=== PATIENT | male | born 1950 | race Two or more races ===

== ENCOUNTER 2025-03-08 16:00 | Inpatient (IN) | payer MEDICARE ==
[~2025-03-08] VITALS: Ht 180.3 cm; Wt 101.1 kg
[2025-03-08] MEDS: InsuLIN REG 1unit/0.01ml Soln (100units/ml) SC SCH (02:30)
[2025-03-08] MEDS: ACCU-CHEK COMFORT CURVE STRIP VI SCH (02:30)
--- NOTE | 2025-03-08 16:26 | ED.PDOC ---
SOB-HPI HPI Comments mulu: HPI: Poor Historian. 74-year-old male brought in by ambulance from post acute care facility for shortness of breath and worsening generalized weakness. Patient is oxygen dependent at home however EMS states that the patient was not wearing his supplemental oxygen because it fell off. Patient uses 4 L nasal cannula for COPD. Patient was used to admitted and discharged from the hospital. Past Medical History: Hypertension, diabetes, on Coumadin, atrial fibrillation, nonambulatory, sleep apnea, ischemic heart disease, polyneuropathy, chronic pain syndrome, hypomagnesemia, COPD oxygen dependent 4 L at home. Past Surgical History: Bariatric surgery, abdominal surgery for perforated viscus, REVIEW OF SYSTEMS: CONSTITUTIONAL: Denies acute: fever, diaphoresis, chills, HEAD: Denies acute: headache, photophobia Eyes: Denies acute: Double vision, vision loss, eye pain, eye discharge. EARS: Denies acute: tinnitus, hearing loss, ear discharge, ear pain, THROAT: Denies acute: sore throat, swelling, difficulty swallowing , pain with swallowing, change in voice. NECK: Denies acute: neck pain, neck swelling, stiff neck. HEART: Denies acute : chest pain, palpitations, LUNGS: Denies acute: wheezing, cough, hemoptysis ABDOMEN: Denies acute: abdominal pain, Nausea, Vomiting, diarrhea, melena , hematemesis, hematochezia SKIN: Denies acute: rash, redness, lesions, itchiness. EXTREMITIES: Denies acute: calf pain, numbness, tingling, weakness, denies pain in extremity. Denies acute: Low back pain. Neuro: Denies acute: focal neurological deficit, motor or sensory focal neurological deficit, tremors, seizure like activity, confusion, dizziness, change in mental status, loss of bowel or bladder function, cauda equina like symptoms. : Denies acute: dysuria, hematuria, flank pain, increase in urinary frequency. PSYCH: Denies acute: hallucination, suicidal ideation, homicidal ideation. PHYSICAL EXAM: General: ---jgqh-jm-[id number]----acute distress, awake and alert. Head: normocephalic, atraumatic. Neck: supple, trachea is midline, no swelling. Throat: Normal phonation. Eyes:, no erythema, no purulent discharge, no proptosis, no icterus. Heart: regular rate, regular rhythm, no significant murmur appreciated. Lungs: no apparent respiratory distress, Able to speak in full sentences. No wheezing, no rhonchi, no crackles. No stridors Clear to auscultation bilaterally. Abdomen: non tender to palpation, non distended, soft, no guarding, no rebound, + bowel sounds. Morbidly obese. Neuro: Awake, Alert, oriented to name, self, situation, follows commands GCS=15. Speech is normal. Skin: no petechia, no purpura, no cyanosis, slightly-pale, not jaundice. Lower extremities: --one/for bilateral- Pitting edema no deformity, no focal swelling, no calf TTP. Makes eye contact. moves all four extremities. Face: no apparent facial droop. ED COURSE: DISCLAIMER: This medical document was created using an electronic medical record system with voice recognition software and computerized dictation system. Although this document has been carefully reviewed, there might still be some phonetic and typographical errors. Occasional wrong-word or "sound-alike" substitutions may have occurred due to the inherent limitations of voice recognition software. These areas are purely typographical due to imperfections of the software programs and do not reflect any compromise in the patient's medical care. Please read the chart carefully and recognize, using context, where these substitutions have occurred. Chief Complaint: Shortness of Breath Time Seen by MD: 16:02 Reviewed notes: Allergies Information Source: Patient, Emergency Med Personnel Was a procedure done? Was a procedure done?: No Differential Dx Differential Diagnosis: Other (DDx include ACS, unstable angina, anxiety, PE, pneumothroax, neoplasm, cardiac ischemia, COPD, asthma, CHF, pleural effusion, tobacco abuse, pneumonia, hypoxia, hypercapnia, anemia., infection/sepsis., pulmonary edema. Asthma, Cardiac tamponade, infection.) X-Ray, Labs, Meds, VS Vital Signs Date Time Temp Pulse Resp B/P (MAP) Pulse Ox O2 Delivery O2 Flow Rate FiO2 03/08/25 16:47 20 97 Nasal Cannula* 3 32 03/08/25 16:35 97.8 83 20 117/70 (86) 98 97.8 03/08/25 16:35 Nasal Cannula* 4 36 03/08/25 16:20 18 95 Nasal Cannula* 4 36 03/08/25 16:20 97.8 88 18 128/80 (96) 95 97.8 03/08/25 16:05 87 Lab Test 03/08/25 17:48 03/08/25 17:02 03/08/25 16:18 Range/Units Prothrombin Time 10.9 9.3-11.8 sec Prothrombin Time INR 1.03 0.9-1.15 Activated Partial Thromboplast Time 30.1 24.5-34.5 SEC Troponin I High Sensitivity 8 11 </=54 ng/L White Blood Count 9.8 4.4-10.8 10^3/uL Red Blood Count 5.13 4.5-5.90 10^6/uL Hemoglobin 11.3 L 13.5-17.5 g/dL Hematocrit 37.5 L 41.0-53.0 % Mean Corpuscular Volume 73.0 L 80.0-100.0 fL Mean Corpuscular Hemoglobin 22.1 L 28.0-32.0 pg Mean Corpuscular Hemoglobin Concent 30.2 L 32.0-36.0 g/dL Red Cell Distribution Width 20.2 H 11.8-14.3 % Platelet Count 504 H 140-450 10^3/uL Mean Platelet Volume 6.1 L 6.9-10.8 fL Neutrophils (%) (Auto) 69.1 37.0-80.0 % Lymphocytes (%) (Auto) 15.9 10.0-50.0 % Monocytes (%) (Auto) 13.2 H 0.0-12.0 % Eosinophils (%) (Auto) 0.8 0.0-7.0 % Basophils (%) (Auto) 1.0 0.0-2.0 % Neutrophils # (Auto) 6.8 1.6-8.6 10 ^3/uL Lymphocytes # (Auto) 1.6 0.4-5.4 10 ^3/uL Monocytes # (Auto) 1.3 0-1.3 10 ^3/uL Eosinophils # (Auto) 0.1 0-0.8 10 ^3/uL Basophils # (Auto) 0.1 0-0.2 10 ^3/uL Nucleated Red Blood Cells 0.1 % Sodium Level 137 136-145 mmol/L Potassium Level 3.0 L 3.5-5.1 mmol/L Chloride Level 99 98-107 mmol/L Carbon Dioxide Level 29 20-31 mmol/L Anion Gap 9 5-15 Blood Urea Nitrogen 22 9-23 mg/dL Creatinine 0.86 0.700-1.30 mg/dL Glomerular Filtration Rate Calc 90 >90 mL/min BUN/Creatinine Ratio 25.6 H 10.0-20.0 Serum Glucose 140 H 74-106 mg/dL Lactic Acid Level 1.3 0.4-2.0 mmol/L Calcium Level 9.7 8.7-10.4 mg/dL Magnesium Level 2.0 1.6-2.6 mg/dL Total Bilirubin < 0.2 L 0.2-1.0 mg/dL Aspartate Amino Transferase (AST) 25 13-40 U/L Alanine Aminotransferase (ALT) 25 7-40 U/L Alkaline Phosphatase 81 46-116 U/L B-Type Natriuretic Peptide 55.64 0-100 pg/mL Total Protein 8.4 H 5.7-8.2 g/dL Albumin 4.2 3.2-4.8 g/dL POC Glucose 143 H 70-106 mg/dl Current Medications Medications (Trade) Dose Ordered Sig/Manoj Route Start Time Stop Time Status Last Admin Albuterol (Ventolin Medneb) 2.5 mg ONCE ONCE NEB 03/08/25 16:30 03/08/25 16:47 DC 03/08/25 16:47 Ipratropium [place] (Atrovent Medneb) 1 mg ONCE ONCE NEB 03/08/25 16:30 03/08/25 16:47 DC 03/08/25 16:47 Methylprednisolone Sodium Succinate (Solu Medrol) 125 mg ONCE ONCE IV 03/08/25 16:30 03/08/25 16:47 DC 03/08/25 17:05 Furosemide (Lasix Injection) 20 mg ONCE ONCE IV 03/08/25 18:30 03/08/25 19:04 DC 03/08/25 19:[address] [address] Ph: [phone] DIAGNOSTIC IMAGING Diagnostic Imaging Report : [id number] Signed PATIENT: MULU MARRERO LACCT: [id number] UNIT: [id number] : 1950 LOC: ER ROOM / BED: / AGE / SEX: 74 / M ADM STATUS: REG ER SERVICE 1608 ORDERING PHYSICIAN: AMELIA ROJO DO PROCEDURE(s): ABPL - CT AB PEL WO CON-NO ORAL OR IV REASON: sob, weak ORDER NUMBER(s): [id number], ACCESSION NUMBER(s): [id number] Indication: sob, weak Technique: CT axial images of the abdomen and pelvis are obtained without contrast. Coronal and sagittal reformats were obtained. Radiation Dose Information: CTDI volume is 24.64 mGy. Dose-length product is 1527.75 mGy*cm Comparison: None FINDINGS: There is limited interpretation of the abdomen and pelvis without administration of intravenous contrast. Small left and tiny right pleural effusions. Bilateral pulmonary atelectasis. Developing left lower lobe airspace consolidation. Pulmonary ground-glass opacities. Adrenal glands unremarkable. Splenic subcapsular / perisplenic fluid collection measuring 7.2 x 3.5 by 11.0 cm. Pancreas, liver unremarkable in shape. Cholecystectomy. Left renal cysts measuring 10 cm.n no hydronephrosis/ nephrolithiasis 1 cm right renal cyst. Postsurgical changes stomach/gastrojejunostomy. Small bowel loops normal in caliber. Moderate volume stool in the colon. Distention of the rectosigmoid colon 9.7 cm. Abdominal aortic atherosclerotic disease. Bladder partially distended. No free pelvic fluid. No inguinal lymphadenopathy. [id number] bilateral sacroiliac degenerative joint disease. Moderate to advanced thoracolumbar degenerative disc disease and facet hypertrophic changes. Sclerotic changes bilateral femoral heads. Right upper extremity PICC line, incompletely characterized. This appears to terminate near the cavoatrial junction. IMPRESSION: Splenic subscapular /perisplenic fluid collection that is encapsulated measuring 7.2 x 11.0 cm. Infected collection/ abscess remains within differential. Recommend CT abdomen pelvis with contrast and surgical consultation for further evaluation, management. Moderate to large volume stool within the colon. Marked gaseous distention of the rectosigmoid colon which could be secondary to ileus, pseudo-obstruction. Recommend GI/ surgical consultation for further evaluation. Cholecystectomy. Gastrojejunostomy. Bibasilar pulmonary atelectasis and developing left lower lobe consolidation. Small left and tiny right pleural effusions. 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 Other findings as described ATED BY: SHASHANK MAURER MD DICTATED DATE/TIME: 03/08/251818 SIGNED BY: SHASHANK MAURER MD SIGNED DATE/TIME: 03/08/251818 CC: [place] [id number] Ph: [phone] DIAGNOSTIC IMAGING Diagnostic Imaging Report : [id number] Signed PATIENT: MULU MARRERO LACCT: [id number] UNIT: [id number] : 1950 LOC: ER ROOM / BED: / AGE / SEX: 74 / M ADM STATUS: REG ER SERVICE 1608 ORDERING PHYSICIAN: AMELIA ROJO DO PROCEDURE(s): CXRP - CHEST PORTABLE REASON: sob, weak ORDER NUMBER(s): [id number], ACCESSION NUMBER(s): [id number] EXAM: XY CHEST PORTABLE TECHNIQUE: Single frontal chest radiograph CLINICAL HISTORY: sob, weak COMPARISON: None Findings/Impression: Frontal chest radiograph demonstrates no acute osseous or superficial soft tissue abnormalities. Right upper extremity PICC terminates near the superior cavoatrial junction. The trachea is midline. The cardiac silhouette and mediastinum are within normal limits. Low lung volumes bronchovascular crowding and bibasilar atelectasis. No pneumothorax, pleural effusions, or consolidations. ATED BY: NAE TORRES DO DICTATED DATE/TIME: 03/08/251833 SIGNED BY: NAE TORRES DO SIGNED DATE/TIME: 03/08/251833 CC: Time of 1ST Reevaluation: 16:25 (EKGs shows some concerning findings, cardiology was consulted immediately. They came and evaluated the patient in the ED Dr. Zhou. Please see his consultation notes and recommendations.) Reevaluation 1ST: Unchanged Patient Education/Counseling: Diagnosis, Treatment Family Education/Counseling: No Family Present Comments Patient presented with the above HPI.---dyspnea-generalized with--workup was initiated. patient was found with the above mentioned diagnosis. the following medications were ordered: please refer to order lists of meds and tests obtained by myself Dr. Rojo. Patient ED course and VS have been stabilized. Patient has been reassessed in the ED and remained in a stable condition. Pertinent incidental findings were discussed with the patient and/or family. Patient/family voices understanding and is agreeable with plan. Patient has been observed in the ED adequate length of time to insure improvement/stability. Escalation of care considered: Consideration of escalation to observation or admission Radiology was consult. General surgery was consulted Patient was ADMITTED to the medicine team for further evaluation and treatment o f their presentation. All the reports of any imaging studies that were ordered by myself were reviewed by myself. SEPSIS Sepsis Screen Physician Orders [employer] (03/08/25 ) Urinalysis (03/08/25 16:08) Chest Portable (03/08/25 16:08) Electrocardigram (03/08/25 16:08) Ct Ab Pel Wo Con-No Oral Or Iv (03/08/25 16:08) Troponin-I Hs (03/08/25 19:08) * Cardiology Consult (03/08/25 16:22) Vital Signs Date Time Temp Pulse Resp B/P (MAP) Pulse Ox O2 Delivery O2 Flow Rate FiO2 03/08/25 16:47 20 97 Nasal Cannula* 3 32 03/08/25 16:35 97.8 83 20 117/70 (86) 98 97.8 03/08/25 16:35 Nasal Cannula* 4 36 03/08/25 16:20 18 95 Nasal Cannula* 4 36 03/08/25 16:20 97.8 88 18 128/80 (96) 95 97.8 03/08/25 16:05 87 Laboratory Tests Test 03/08/25 17:02 Lactic Acid Level 1.3 mmol/L (0.4-2.0) White Blood Count 9.8 10^3/uL (4.4-10.8) Medications Medications Dose Ordered Sig/Manoj Route Start Time Stop Time Status Last Admin Dose Admin Albuterol 2.5 mg ONCE ONCE NEB 03/08/25 16:30 03/08/25 16:47 DC 03/08/25 16:47 Furosemide 20 mg ONCE ONCE IV 03/08/25 18:30 03/08/25 19:04 DC 03/08/25 19:33 Ipratropium [place] 1 mg ONCE ONCE NEB 03/08/25 16:30 03/08/25 16:47 DC 03/08/25 16:47 Methylprednisolone Sodium Succinate 125 mg ONCE ONCE IV 03/08/25 16:30 03/08/25 16:47 DC 03/08/25 17:05 Departure 1 Departure Time of Disposition: 16:26 Impression: Primary Impression: Generalized weakness Additional Impressions: Dyspnea Abnormal EKG Hypokalemia SBO (small bowel obstruction) Lung consolidation Disposition: ADMITTED INPATIENT Admit to: Tele Condition: Guarded Discharged With: Self Critical Care Note Critical Care Time?: Yes (1 hr-critical care time only) Heart Score Heart Score: Heart Score Response (Comments) Value History Moderate Suspicious [address]-Deviation 2 Age >65 2 Risk Factors >3 or Hx ASHD 2 Troponin Normal limit 0 Total 7 AMELIA ROJO DO Mar 08, 2025 16:26
[2025-03-08] MEDS: IPRATROPIUM BROM 0.5 MG/2.5ML INH SOL ONE (16:47)
[2025-03-08] MEDS: IPRATROPIUM BROM 0.5 MG/2.5ML INH SOL NEB ONE (16:47)
[2025-03-08] MEDS: ALBUTEROL SULF 2.5 MG/0.5ML(0.5%) NEB SOLN NEB ONE (16:47)
[2025-03-08] MEDS: methylPREDNISolone SOD SUCC 125 MG/2 ML VL IV ONE (17:05)
[2025-03-08 17:23] LABS: Hematocrit 37.5 % (41.0-53.0); Hemoglobin 11.3 g/dL (13.5-17.5); Mean Corpuscular Hemoglobin 22.1 pg (28.0-32.0); Mean Corpuscular Volume 73.0 fL (80.0-100.0); Nucleated Red Blood Cells % 0.1 %
[2025-03-08 17:37] LABS: Alanine Aminotransferase 25 U/L (7-40); Albumin 4.2 g/dL (3.2-4.8); Alkaline Phosphatase 81 U/L (46-116); Anion Gap 9 (5-15); BUN/Creatinine Ratio 25.6 (10.0-20.0); Blood Urea Nitrogen 22 mg/dL (9-23); Calcium 9.7 mg/dL (8.7-10.4); Carbon Dioxide 29 mmol/L (20-31); Chloride 99 mmol/L (98-107); Magnesium 2.0 mg/dL (1.6-2.6); Sodium 137 mmol/L (136-145)
[2025-03-08 17:39] LABS: Bilirubin, Total < 0.2 mg/dL (0.2-1.0); Glucose 140 mg/dL (74-106); Potassium 3.0 mmol/L (3.5-5.1); Total Protein 8.4 g/dL (5.7-8.2)
--- NOTE | 2025-03-08 18:21 | DVH ---
Indication: sob, weak Technique: CT axial images of the abdomen and pelvis are obtained without contrast. Coronal and sagit giovanni reformats were obtained. Radiation Dose Information: CTDI volume is 24.64 mGy. Dose-length product is 1527.75 mGy*cm Comparison: None FINDINGS: There is limited interpretation of the abdomen and pelvis without administration of intravenous contr ast. Small left and tiny right pleural effusions. Bilateral pulmonary atelectasis. Developing left lower lobe airspace consolidation. Pulmonary ground- glass opacities. Adrenal glands unremarkable. Splenic subcapsular / perisplenic fluid collection measuring 7.2 x 3.5 by 11.0 cm. Pancreas, liver unremarkable in shape. Cholecystectomy. Left renal cysts measuring 10 cm.n no hydronephrosis/ nephrolithiasis 1 cm right renal cyst. Postsurgical changes stomach/gastrojejunostomy. Small bowel loops normal in caliber. Moderate volume stool in the colon. Distention of the rectosigmoid colon 9.7 cm. Abdominal aortic atherosclerotic disease. Bladder partially distended. No free pelvic fluid. No ingui nal lymphadenopathy. Hmte-zf-[id number] bilateral sacroiliac degenerative joint disease. Moderate to advanced thoracolumbar degenerative disc disease and facet hypertrophic changes. Sclerotic changes bilateral femoral heads. Right upper extremity PICC line, incompletely characterized. This appears to terminate near the cavoa trial junction. IMPRESSION: Splenic subscapular /perisplenic fluid collection that is encapsulated measuring 7.2 x 11.0 cm. Infec jennifer collection/ abscess remains within differential. Recommend CT abdomen pelvis with contrast and s urgical consultation for further evaluation, management. Moderate to large volume stool within the colon. Marked gaseous distention of the rectosigmoid colon which could be secondary to ileus, pseudo-obstruc tion. Recommend GI/ surgical consultation for further evaluation. Cholecystectomy. Gastrojejunostomy. Bibasilar pulmonary atelectasis and developing left lower lobe consolidation. Small left and tiny rig ht pleural effusions. Pulmonary ground-glass opacities which can be secondary to infection, hypoventilation, inflammatory e tiologies Bilateral femoral head sclerotic changes likely representing sequela of avascular necrosis. Other findings as described
--- NOTE | 2025-03-08 18:36 | DVH ---
EXAM: XY CHEST PORTABLE TECHNIQUE: Single frontal chest radiograph CLINICAL HISTORY: sob, weak COMPARISON: None Findings/Impression: Frontal chest radiograph demonstrates no acute osseous or superficial soft tissue abnormalities. Right upper extremity PICC terminates near the superior cavoatrial junction. The trachea is midline. The cardiac silhouette and mediastinum are within normal limits. Low lung volumes bronchovascular crowding and bibasilar atelectasis. No pneumothorax, pleural effusions, or consolidations.
[2025-03-08 18:39] LABS: INR 1.03 (0.9-1.15); Partial Thromboplastin Time 30.1 SEC (24.5-34.5); Prothrombin Time 10.9 sec (9.3-11.8)
--- NOTE | 2025-03-08 19:15 | DVHINCON2 ---
Date of service: Mar 08, 2025 History of Present Illness 74 yo M with recent surgery admitted for weakness. iw as called 'STAT" by ER MD for abnormal ecg. i called off code stemi. trops are - IMPRESSION: Splenic subscapular /perisplenic fluid collection that is encapsulated measuring 7.2 x 11.0 cm. Infected collection/ abscess remains within differential. Recommend CT abdomen pelvis with contrast and surgical consultation for further evaluation, management. Moderate to large volume stool within the colon. Marked gaseous distention of the rectosigmoid colon which could be secondary to ileus, pseudo-obstruction. Recommend GI/ surgical consultation for further evaluation. Cholecystectomy. Gastrojejunostomy. Bibasilar pulmonary atelectasis and developing left lower lobe consolidation. Small left and tiny right pleural effusions. 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 Other findings as described Past Medical History reviewed Allergies: Coded Allergies: Statins (Verified Allergy, Severe, 03/08/25) Review of Systems not obtained Vital Signs Vital Signs Date Time Temp Pulse Resp B/P (MAP) Pulse Ox O2 Delivery O2 Flow Rate FiO2 03/08/25 16:47 20 97 Nasal Cannula* 3 32 03/08/25 16:35 97.8 83 117/70 (86) 97.8 Labs/Diagnostic Data Labs Test 03/08/25 17:48 03/08/25 17:02 03/08/25 16:18 Range/Units Prothrombin Time 10.9 9.3-11.8 sec Prothrombin Time INR 1.03 0.9-1.15 Activated Partial Thromboplast Time 30.1 24.5-34.5 SEC Troponin I High Sensitivity 8 </=54 ng/L White Blood Count 9.8 4.4-10.8 10^3/uL Red Blood Count 5.13 4.5-5.90 10^6/uL Hemoglobin 11.3 L 13.5-17.5 g/dL Hematocrit 37.5 L 41.0-53.0 % Mean Corpuscular Volume 73.0 L 80.0-100.0 fL Mean Corpuscular Hemoglobin 22.1 L 28.0-32.0 pg Mean Corpuscular Hemoglobin Concent 30.2 L 32.0-36.0 g/dL Red Cell Distribution Width 20.2 H 11.8-14.3 % Platelet Count 504 H 140-450 10^3/uL Mean Platelet Volume 6.1 L 6.9-10.8 fL Neutrophils (%) (Auto) 69.1 37.0-80.0 % Lymphocytes (%) (Auto) 15.9 10.0-50.0 % Monocytes (%) (Auto) 13.2 H 0.0-12.0 % Eosinophils (%) (Auto) 0.8 0.0-7.0 % Basophils (%) (Auto) 1.0 0.0-2.0 % Neutrophils # (Auto) 6.8 1.6-8.6 10 ^3/uL Lymphocytes # (Auto) 1.6 0.4-5.4 10 ^3/uL Monocytes # (Auto) 1.3 0-1.3 10 ^3/uL Eosinophils # (Auto) 0.1 0-0.8 10 ^3/uL Basophils # (Auto) 0.1 0-0.2 10 ^3/uL Nucleated Red Blood Cells 0.1 % Sodium Level 137 136-145 mmol/L Potassium Level 3.0 L 3.5-5.1 mmol/L Chloride Level 99 98-107 mmol/L Carbon Dioxide Level 29 20-31 mmol/L Anion Gap 9 5-15 Blood Urea Nitrogen 22 9-23 mg/dL Creatinine 0.86 0.700-1.30 mg/dL Glomerular Filtration Rate Calc 90 >90 mL/min BUN/Creatinine Ratio 25.6 H 10.0-20.0 Serum Glucose 140 H 74-106 mg/dL Lactic Acid Level 1.3 0.4-2.0 mmol/L Calcium Level 9.7 8.7-10.4 mg/dL Magnesium Level 2.0 1.6-2.6 mg/dL Total Bilirubin < 0.2 L 0.2-1.0 mg/dL Aspartate Amino Transferase (AST) 25 13-40 U/L Alanine Aminotransferase (ALT) 25 7-40 U/L Alkaline Phosphatase 81 46-116 U/L B-Type Natriuretic Peptide 55.64 0-100 pg/mL Total Protein 8.4 H 5.7-8.2 g/dL Albumin 4.2 3.2-4.8 g/dL POC Glucose 143 H 70-106 mg/dl Assessment r/o ACS abd infection recent GI surgery ckd htn Plan/Recommendation consider surgical consult acs ruled out no evidence of stemi abx as indicated check echo if not done in past, pt may have incorrect MRN echo in january 2025 showed ef 75% LVH Plan discussed with: Patient PATSY BELTRAN MD Mar 08, 2025 19:15
[2025-03-08] MEDS: PIPERACILLIN-TAZOB 3.375GM 100 ML IV ONE (19:33)
[2025-03-08] MEDS: FUROSEMIDE 20 MG/2 ML VIAL IV ONE (19:33)
[2025-03-08 19:35] VITALS: PULSE 82; RESP 20; O2SAT 95
[2025-03-08] MEDS ORDERED: DEXTROSE (50%) 50ML SYRG IV PRN (20:15)
--- NOTE | 2025-03-08 20:26 | DVHHP2 ---
History of Present Illness Reason for Visit: Shortness of breath History of Present Illness 74-year-old male presents for evaluation of shortness for breath. Patient resides at a post acute care. Patient was noted to be progressively more short of breath. He reports having a productive cough with green phlegm. Denies chest pain. No abdominal pain, nausea or vomiting. No fever or chills. Past Medical History AFib, hypertension, COPD, diabetes mellitus Past Surgical History Bariatric surgery, Family History Noncontributory Smoke: No ALCOHOL: none Drugs: None Review of Systems Review of Systems Review of systems are currently negative otherwise addressed in HPI. Allergies: Coded Allergies: Statins (Verified Allergy, Severe, 03/08/25) Exam Vital Signs Vital Signs Date Time Temp Pulse Resp B/P (MAP) Pulse Ox O2 Delivery O2 Flow Rate FiO2 03/08/25 19:33 169/77 03/08/25 16:47 20 97 Nasal Cannula* 3 32 03/08/25 16:35 97.8 83 97.8 Exam Gen: 74-year-old male in mild Skin: Warm, dry, normal color and texture, no rash. HEENT: Normocephalic atraumatic, mucous membranes moist and pink. Neck: Cervical and supraclavicular nodes normal without enlargement, trachea is midline, thyroid gland is normal without masses. Pulmonary: Bilateral rhonchi Cardiac: Regular rate and rhythm. No murmur Abdomen: Soft, nontender, nondistended, bowel sounds present all 4 quadrants, no guarding, no rigidity, no organomegaly. Extremities: No cyanosis, clubbing, no edema Neuro: Cranial nerves II through XII grossly intact, normal affect and speech, no focal motor deficits. Labs/Xrays ORDERING PHYSICIAN: AMELIA ROJO DO PROCEDURE(s): CXRP - CHEST PORTABLE REASON: sob, weak ORDER NUMBER(s): [id number], ACCESSION NUMBER(s): [id number] EXAM: XY CHEST PORTABLE TECHNIQUE: Single frontal chest radiograph CLINICAL HISTORY: sob, weak COMPARISON: None Findings/Impression: Frontal chest radiograph demonstrates no acute osseous or superficial soft tissue abnormalities. Right upper extremity PICC terminates near the superior cavoatrial junction. The trachea is midline. The cardiac silhouette and mediastinum are within normal limits. Low lung volumes bronchovascular crowding and bibasilar atelectasis. No pneumothorax, pleural effusions, or consolidations. RING PHYSICIAN: AMELIA ROJO DO PROCEDURE(s): ABPL - CT AB PEL WO CON-NO ORAL OR IV REASON: sob, weak ORDER NUMBER(s): [id number], ACCESSION NUMBER(s): [id number] Indication: sob, weak Technique: CT axial images of the abdomen and pelvis are obtained without contrast. Coronal and sagittal reformats were obtained. Radiation Dose Information: CTDI volume is 24.64 mGy. Dose-length product is 1527.75 mGy*cm Comparison: None FINDINGS: There is limited interpretation of the abdomen and pelvis without administration of intravenous contrast. Small left and tiny right pleural effusions. Bilateral pulmonary atelectasis. Developing left lower lobe airspace consolidation. Pulmonary ground-glass opacities. Adrenal glands unremarkable. Splenic subcapsular / perisplenic fluid collection measuring 7.2 x 3.5 by 11.0 cm. Pancreas, liver unremarkable in shape. Cholecystectomy. Left renal cysts measuring 10 cm.n no hydronephrosis/ nephrolithiasis 1 cm right renal cyst. Postsurgical changes stomach/gastrojejunostomy. Small bowel loops normal in caliber. Moderate volume stool in the colon. Distention of the rectosigmoid colon 9.7 cm. Abdominal aortic atherosclerotic disease. Bladder partially distended. No free pelvic fluid. No inguinal lymphadenopathy. [id number] bilateral sacroiliac degenerative joint disease. Moderate to advanced thoracolumbar degenerative disc disease and facet hypertrophic changes. Sclerotic changes bilateral femoral heads. Right upper extremity PICC line, incompletely characterized. This appears to terminate near the cavoatrial junction. IMPRESSION: Splenic subscapular /perisplenic fluid collection that is encapsulated measuring 7.2 x 11.0 cm. Infected collection/ abscess remains within differential. Recommend CT abdomen pelvis with contrast and surgical consultation for further evaluation, management. Moderate to large volume stool within the colon. Marked gaseous distention of the rectosigmoid colon which could be secondary to ileus, pseudo-obstruction. Recommend GI/ surgical consultation for further evaluation. Cholecystectomy. Gastrojejunostomy. Bibasilar pulmonary atelectasis and developing left lower lobe consolidation. Small left and tiny right pleural effusions. 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 Other findings as described ORDERING PHYSICIAN: FRANTZ GRANDA PROCEDURE(s): ECIDC - ECHO 2D MODE CARDIAC DOP REASON: cardiac clearance ORDER NUMBER(s): [id number], ACCESSION NUMBER(s): [id number] APPROVED REPORT EXAM: Two-dimensional and M-mode echocardiogram with Doppler and color Doppler. Blood Pressure: 103/59 mmHg INDICATION Pre-Op RISK FACTORS Obesity: Height: 5'7", Weight: 263 DIMENSIONS LVDd 3.7 (3.8-5.7cm) LA (2D) 3.7 (1.9-4.0cm) Aortic Root 3.7 (2.0- 3.7cm) LVDs 2.6 (2.5-4.0cm) LA (MM) (1.9-4.0cm) Aortic Cusp Exc 1.3 (1.5- 2.0cm) EF (%) 60.0 (55-70%) Rt. Atrium 4.3 (1.9-4.0cm) Asc. Aorta cm IVSd 1.3 (0.7-1.1cm) RV (D) (1.8-2.4cm) PWd 1.3 (0.7-1.1cm) Mitral Valve Mitral Mitral Stenosis E wave 0.98m/s MV Mean GR. mmHg E/A ratio 0.0 2D MVA cm2 Aortic Valve Aortic Valve Aortic Stenosis V1 1.25m/s AO Mean GR. 9mmHg V2 2.00m/s AO Peak GR. 16mmHg LVOT Diameter 2.1 (1.8-2.4cm) Doppler GAMA 2.16cm2 Pulmonic Valve V2 1.71m/s Tricuspid Valve TR Velocity 3.18m/s RVSP 48mmHg Other Information Technically limited study due to body habitus, patient lying flat. Conclusion lvef 75% mild LVH septal hypertrophy aortic sclerosis , heavy calcium noted RV enlarged, normal function left atrium enlarged mild pulm htn noted SIGNED BY: PATSY BELTRAN MD SIGNED DATE/TIME: 01/22/25 0924 CC: Labs Test 03/08/25 19:51 03/08/25 17:48 03/08/25 17:02 03/08/25 16:18 Range/Units Prothrombin Time 10.9 9.3-11.8 sec Prothrombin Time INR 1.03 0.9-1.15 Activated Partial Thromboplast Time 30.1 24.5-34.5 SEC White Blood Count 9.8 4.4-10.8 10^3/uL Red Blood Count 5.13 4.5-5.90 10^6/uL Hemoglobin 11.3 L 13.5-17.5 g/dL Hematocrit 37.5 L 41.0-53.0 % Mean Corpuscular Volume 73.0 L 80.0-100.0 fL Mean Corpuscular Hemoglobin 22.1 L 28.0-32.0 pg Mean Corpuscular Hemoglobin Concent 30.2 L 32.0-36.0 g/dL Red Cell Distribution Width 20.2 H 11.8-14.3 % Platelet Count 504 H 140-450 10^3/uL Mean Platelet Volume 6.1 L 6.9-10.8 fL Neutrophils (%) (Auto) 69.1 37.0-80.0 % Lymphocytes (%) (Auto) 15.9 10.0-50.0 % Monocytes (%) (Auto) 13.2 H 0.0-12.0 % Eosinophils (%) (Auto) 0.8 0.0-7.0 % Basophils (%) (Auto) 1.0 0.0-2.0 % Neutrophils # (Auto) 6.8 1.6-8.6 10 ^3/uL Lymphocytes # (Auto) 1.6 0.4-5.4 10 ^3/uL Monocytes # (Auto) 1.3 0-1.3 10 ^3/uL Eosinophils # (Auto) 0.1 0-0.8 10 ^3/uL Basophils # (Auto) 0.1 0-0.2 10 ^3/uL Nucleated Red Blood Cells 0.1 % Sodium Level 137 136-145 mmol/L Potassium Level 3.0 L 3.5-5.1 mmol/L Chloride Level 99 98-107 mmol/L Carbon Dioxide Level 29 20-31 mmol/L Anion Gap 9 5-15 Blood Urea Nitrogen 22 9-23 mg/dL Creatinine 0.86 0.700-1.30 mg/dL Glomerular Filtration Rate Calc 90 >90 mL/min BUN/Creatinine Ratio 25.6 H 10.0-20.0 Serum Glucose 140 H 74-106 mg/dL Lactic Acid Level 1.3 0.4-2.0 mmol/L Calcium Level 9.7 8.7-10.4 mg/dL Magnesium Level 2.0 1.6-2.6 mg/dL Total Bilirubin < 0.2 L 0.2-1.0 mg/dL Aspartate Amino Transferase (AST) 25 13-40 U/L Alanine Aminotransferase (ALT) 25 7-40 U/L Alkaline Phosphatase 81 46-116 U/L B-Type Natriuretic Peptide 55.64 0-100 pg/mL Total Protein 8.4 H 5.7-8.2 g/dL Albumin 4.2 3.2-4.8 g/dL POC Glucose 143 H 70-106 mg/dl Assessment/Plan Assessment/Plan Assessment Community-acquired pneumonia Rule out ileus versus obstruction ? Intra-abdominal abscess Morbid obesity Hypertension Plan Admit the patient to [facility] to the hospitalist Abdiel Surgical consult and Cardiology consult placed by ER provider NPO Continue treatment per orders. Plan discussed with: Patient My Orders Orders - MAIK MUSE Procedure Category Date Status Time Admit ADMIT 03/08/25 Transmitted 18:32 Date of Service: Mar 08, 2025 Billing Provider: MAIK MUSE Common Visit Codes: [id number] INP/OBS CARE (HIGH) MAIK MUSE Mar 08, 2025 20:26
[2025-03-08] MEDS: POTASSIUM CHL 20MEQ/100ML 100 ML IV ONE (20:56)
[2025-03-08] MEDS: ONDANSETRON HCL 4 MG/2 ML VIAL IV PRN (20:56)
[2025-03-08] MEDS: MORPHINE SULFATE INJ 2 MG/ml SYRG IV PRN (20:57)
[2025-03-08] MEDS ORDERED: WARFARIN SODIUM 1 MG TAB PO ONE (21:15)
[2025-03-08 21:18] VITALS: BP 148/78; PULSE 82; RESP 20; TEMP 97.8; O2SAT 95
[2025-03-08 21:38] VITALS: BP 122/73; PULSE 82; RESP 17; TEMP 97.9; O2SAT 94
[2025-03-08 22:19] LABS: Urine Protein, UAD TRACE (Negative)
[2025-03-08 22:33] VITALS: PULSE 65; RESP 18; O2SAT 98
[2025-03-09] VITALS (14 sets, daily range): BP systolic 97–140; BP diastolic 57–85; PULSE 62–93; RESP 16–20; TEMP 97.2–98.2; O2SAT 93–100
[2025-03-09] MEDS: PIPERACILLIN-TAZOB 3.375GM 100 ML IV SCH ×2 (02:34→12:33)
[2025-03-09] MEDS: ALBUTEROL SULF 2.5 MG/0.5ML(0.5%) NEB SOLN NEB PRN (03:27)
[2025-03-09] MEDS: IPRATROPIUM BROM 0.5 MG/2.5ML INH SOL NEB PRN (03:27)
[2025-03-09] MEDS: FUROSEMIDE 20 MG TAB PO SCH (05:42)
[2025-03-09 06:00] LABS: Hemoglobin 11.0 g/dL (13.5-17.5); Mean Corpuscular Hemoglobin 22.3 pg (28.0-32.0)
[2025-03-09 06:04] LABS: Hematocrit 36.6 % (41.0-53.0); Mean Corpuscular Volume 74.5 fL (80.0-100.0); Nucleated Red Blood Cells % 0.3 %
[2025-03-09 06:07] LABS: Chloride 99 mmol/L (98-107); Sodium 139 mmol/L (136-145)
[2025-03-09 06:08] LABS: Anion Gap 16 (5-15); Calcium 10.2 mg/dL (8.7-10.4); Carbon Dioxide 24 mmol/L (20-31)
[2025-03-09 06:10] LABS: INR 1.01 (0.9-1.15); Partial Thromboplastin Time 27.1 SEC (24.5-34.5); Prothrombin Time 10.7 sec (9.3-11.8)
[2025-03-09 06:13] LABS: BUN/Creatinine Ratio 29.8 (10.0-20.0)
[2025-03-09 06:26] LABS: Blood Urea Nitrogen 28 mg/dL (9-23); Glucose 181 mg/dL (74-106); Potassium 3.4 mmol/L (3.5-5.1)
[2025-03-09] MEDS ORDERED: DOXYCYCLINE 100MG/100ML 100 ML IV SCH (09:15)
[2025-03-09] MEDS: DOXYCYCLINE 100MG/100ML 100 ML IV SCH (10:03)
[2025-03-09] MEDS: EMPAGLIFLOZIN 10 MG TAB PO SCH (10:03)
[2025-03-09] MEDS: LISINOPRIL 20 MG TAB PO SCH (10:04)
[2025-03-09] MEDS: ENOXAPARIN SOD 100 MG/1 ML SYRINGE SC SCH (10:04)
[2025-03-09] MEDS: SODIUM CHLORIDE 0.9% 1,000 ML IV ONE (10:19)
[2025-03-09] MEDS: IOHEXOL 300 MG/ML 100ML BOTTLE IJ ONE (10:20)
--- NOTE | 2025-03-09 10:28 | DVHPNRES ---
Progress Note Date Seen: Mar 09, 2025 Resident Creating Document: NANCY KUMAR RESIDENT Medical Necessity Reason Pt with a Central, PICC or Fol: No Subjective Review of Systems 74-year-old male, Daniel Jones with past medical history of AFib, hypertension, DM, COPD ( On home oxygen 3 L via nasal cannula), came to the emergency department yesterday with complaints of acute abdominal pain the epigastric region. He rates the pain as 10 x 10 in intensity, nonradiating, no aggravating or relieving factors. It was associated with nausea, but no vomiting, fever, chills, Chest pain. Patient also reports of progressive shortness of breath in the past few days associated with productive cough and green phlegm. PMH: AFib, hypertension, COPD, DM PSH: Bariatric surgery( gastrojejunostomy), cholecystectomy, right knee total replacement, 5 spinal laminectomies, Family history: Noncontributory home medication: Xarelto, Trelegy, Jardiance, lisinopril, metformin, metoprolol, exheltro, gabapentin, ferrous sulphate, oxycodone, hydrochlorothiazide, chlorthalidine, cyclobenapine, zrytec, tramadol (occasionally) Social history: Lives with his uncle, denies smoking currently but used to smoke a couple of packs per day left 15 years ago, alcohol, drugs. Allergies: Statin ROS: Patient seen and examined in the bedside. Patient reports feeling better, abdominal pain has improved. He still reports of shortness of breath. rest of the ROS is negative Objective vital signs Vital Sign Date Time Temp Pulse Resp B/P (MAP) Pulse Ox O2 Delivery O2 Flow Rate FiO2 03/09/25 09:00 97.5 93 20 140/85 (103) 98 97.5 03/09/25 06:17 Nasal Cannula* 5 40 Total Intake and Output 03/08/25 03/08/25 03/09/25 15:00 23:00 07:00 Intake Total 0 ml Output Total 750 ml Balance -750 ml medications Current Medications Medications Dose Ordered Sig/Manoj Route Start Time Stop Time Status Last Admin Dose Admin Albuterol 2.5 mg Q6HPRN PRN NEB 03/08/25 20:15 03/09/25 03:27 2.5 MG Furosemide 20 mg BIDD PO 03/09/25 06:00 Empaglifozin 10 mg DAILY PO 03/09/25 10:00 Metoprolol Succinate 50 mg DAILY PO 03/09/25 10:00 Lisinopril 20 mg DAILY PO 03/09/25 10:00 Ipratropium [place] 0.5 mg Q6HPRN PRN NEB 03/08/25 20:15 03/09/25 03:27 0.5 MG Diagnostic Test (Pha) 1 strip ACHS 03/08/25 22:00 03/09/25 07:00 1 STRIP Insulin Human Regular ACHS SC 03/08/25 22:00 03/09/25 07:00 3 UNITS Dextrose 50 ml UD PRN IV 03/08/25 20:15 Ondansetron HCl 4 mg Q4HP PRN IV 03/08/25 20:15 03/09/25 08:02 4 MG Morphine Sulfate 2 mg Q4HPRN PRN IV 03/08/25 20:15 03/09/25 08:04 2 MG Insulin Glargine 10 units QAM SC 03/10/25 07:00 Enoxaparin Sodium 100 mg Q12HR SC 03/09/25 10:00 Piperacillin Sod/ Tazobactam Sod 100 ml @ 50 mls/hr Q8H IV 03/09/25 12:00 Doxycycline Hyclate 100 ml @ 50 mls/hr Q12HR IV 03/09/25 10:00 Sodium Chloride 1,000 ml @ 100 mls/hr Q10H IV 03/09/25 12:00 Examination Pt is lying on bed General Appearance: Alert, Oriented X3, Cooperative, Not in acute distress HEENT: Atraumatic, Mucous membranes moist/pink Respiratory: Clear to auscultation, Normal air movement, No added sounds Cardiovascular: Regular rate, Normal S1, Normal S2, No murmurs Abdominal: Active bowel sounds, Soft, no distention, tenderness present in epigastric and left upper quadrant Extremities: No edema, Normal pulses, No tenderness/swelling Skin: No Significant rash, except past surgical scars Neuro: Normal speech, sensorimotor deficits none Psych/Mental Status: Mental status NL, Mood NL 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 -Abdomen and pelvis CT shows: Pulmonary ground-glass opacities which can be secondary to infection, hypoventilation, inflammatory etiologies Bibasilar pulmonary atelectasis and developing left lower lobe consolidation. -Flu and COVID test ordered -breathing treatment ordered -Zosyn and doxycycline -respiratory cultures and blood cultures # ?Intra-abdominal/splenic abscess # Ileus versus obstruction -Zosyn -evident on CT abdomen pelvis with contrast showed Rim-enhancing lesion in the lateral aspect of the spleen with local mass effect measuring 8.3 x 2.9 x 10.7 cm, concerning for abscess. -Surgery consulted -IR consulted for possible percutaneous drainage of the splenic fluid collection. # AFib with secondary hypercoagulable state -heparin #Hypokalemia(3.4) -Repleted potassium #Uncontrolled DM -Insulin on sliding scale placed -Hb1Ac order next # [id number]/L sacral iliac degenerate disease: Lumbar degenerative disc disease facet hypertrophic changes -outpatient follow-up GI prophylaxis: Protonix DVT prophylaxis: Heparin Diet: low-salt diet, diabetic diet Acute Gram-positive and negative bacterial pneumonia, splenic abscess- pending IR consult to drain splenic abscess, meanwhile we will continue heparin drip Goals of care discussed with the patient for more than 27 minutes: Full code status Case discussed with Dr. Hoff, patient and nurse. Plan discussed with: Patient, Other (RN) My Orders My Orders Orders - NANCY KUMAR RESIDENT Procedure Category Date Status Time Pantoprazole PHA 03/09/25 In Process (Protonix) 22:00 Date of Service: Mar 09, 2025 Billing Provider: SALVADOR HOFF MD Common Visit Codes: [id number] INP/OBS CARE(HIGH) NANCY KUMAR RESIDENT Mar 09, 2025 10:28 OLIVIA CLANCY RESIDENT Mar 09, 2025 14:59 SALVADOR HOFF MD Mar 12, 2025 20:41
--- NOTE | 2025-03-09 10:56 | DVHINCON2 ---
Date of service: Mar 09, 2025 History of Present Illness Patient is a 74-year-old male admitted secondary to shortness of breath. Patient denies any abdominal pain. However during the workup his CT of the abdomen and pelvis showed splenic fluid collection concerning for possible abscess. Patient denies any recent history of fall or trauma to the area. Past Medical History Atrial fibrillation. Hypertension. COPD. Diabetes mellitus. Past Surgical History Bariatric surgery. Family History: Patient reports no known family medical history. Family History Noncontributory Allergies: Coded Allergies: Statins (Verified Allergy, Severe, 03/08/25) Current Medications Current Medications Medications (Trade) Dose Ordered Sig/Manoj Route PRN Reason Start Time Stop Time Status Last Admin Albuterol (Ventolin Medneb) 2.5 mg Q6HPRN PRN NEB SHORTNESS OF BREATH 03/08/25 20:15 03/09/25 03:27 Piperacillin Sod/ Tazobactam Sod 100 ml @ 25 mls/hr Q8H IV 03/09/25 03:00 03/09/25 09:39 DC 03/09/25 02:34 Furosemide (Lasix Tablet) 20 mg BIDD PO 03/09/25 06:00 03/09/25 10:07 DC Empaglifozin (Jardiance) 10 mg DAILY PO 03/09/25 10:00 03/09/25 10:03 Warfarin Sodium (Coumadin Per Rx Protocol) RX PROTOCOL PER PHARMACY PO 03/08/25 20:15 03/09/25 07:53 DC Metoprolol Succinate (Toprol Xl) 50 mg DAILY PO 03/09/25 10:00 Lisinopril (Zestril Tablet) 20 mg DAILY PO 03/09/25 10:00 03/09/25 10:04 Ipratropium [place] (Atrovent Medneb) 0.5 mg Q6HPRN PRN NEB SHORTNESS OF BREATH 03/08/25 20:15 03/09/25 03:27 Diagnostic Test (Pha) (Accu-Chek Comfort Curve T) 1 strip ACHS 03/08/25 22:00 03/09/25 07:00 Insulin Human Regular (InsuLIN R) ACHS SC 03/08/25 22:00 03/09/25 07:00 Dextrose 50 ml UD PRN IV Blood Sugar LESS THAN 60 03/08/25 20:15 Ondansetron HCl (Zofran) 4 mg Q4HP PRN IV NAUSEA / VOMITING 03/08/25 20:15 03/09/25 08:02 Morphine Sulfate 2 mg Q4HPRN PRN IV SEVERE PAIN (7-10 PAIN SCALE) 03/08/25 20:15 03/09/25 08:04 Insulin Glargine (Lantus) 10 units QAM SC 03/10/25 07:00 Enoxaparin Sodium (Lovenox) 100 mg Q12HR SC 03/09/25 10:00 03/09/25 10:04 Doxycycline Hyclate 100 ml @ 50 mls/hr Q12H IV 03/09/25 09:15 03/09/25 09:41 DC Piperacillin Sod/ Tazobactam Sod 100 ml @ 50 mls/hr Q8H IV 03/09/25 12:00 Doxycycline Hyclate 100 ml @ 50 mls/hr Q12HR IV 03/09/25 10:00 03/09/25 10:03 Sodium Chloride 1,000 ml @ 100 mls/hr Q10H IV 03/09/25 12:00 Pantoprazole Sodium (Protonix) 40 mg BID IV 03/09/25 22:00 Vital Signs Vital Signs Date Time Temp Pulse Resp B/P (MAP) Pulse Ox O2 Delivery O2 Flow Rate FiO2 03/09/25 10:04 130/85 03/09/25 09:00 97.5 93 20 98 97.5 03/09/25 06:17 Nasal Cannula* 5 40 Physical Exam GEN: Obese elderly male in no acute distress. Alert. HEENT: Normocephalic atraumatic. Moist mucous membranes. Anicteric sclerae. CV: RRR Respiratory: Coarse breath sounds ABD: Obese abdomen that is soft. Nontender nondistended. CT of the abdomen and pelvis: Splenic subcapsular/perisplenic fluid collection with encapsulation measuring 7.2 x 11 milk of cm. Possible abscess. Marked gaseous distention of the rectosigmoid colon which could be secondary to ileus. Cholecystectomy. Gastrojejunostomy. Labs/Diagnostic Data Labs Test 03/09/25 08:23 03/09/25 05:07 03/08/25 21:21 03/08/25 19:51 Range/Units POC Glucose 181 H 70-106 mg/dl White Blood Count 7.0 # 4.4-10.8 10^3/uL Red Blood Count 4.91 4.5-5.90 10^6/uL Hemoglobin 11.0 L 13.5-17.5 g/dL Hematocrit 36.6 L 41.0-53.0 % Mean Corpuscular Volume 74.5 L 80.0-100.0 fL Mean Corpuscular Hemoglobin 22.3 L 28.0-32.0 pg Mean Corpuscular Hemoglobin Concent 29.9 L 32.0-36.0 g/dL Red Cell Distribution Width 20.2 H 11.8-14.3 % Platelet Count 464 H 140-450 10^3/uL Mean Platelet Volume 6.2 L 6.9-10.8 fL Neutrophils (%) (Auto) 88.6 H 37.0-80.0 % Lymphocytes (%) (Auto) 9.2 L 10.0-50.0 % Monocytes (%) (Auto) 1.9 0.0-12.0 % Eosinophils (%) (Auto) 0.0 0.0-7.0 % Basophils (%) (Auto) 0.3 0.0-2.0 % Neutrophils # (Auto) 6.2 1.6-8.6 10 ^3/uL Lymphocytes # (Auto) 0.6 0.4-5.4 10 ^3/uL Monocytes # (Auto) 0.1 0-1.3 10 ^3/uL Eosinophils # (Auto) 0 0-0.8 10 ^3/uL Basophils # (Auto) 0 0-0.2 10 ^3/uL Nucleated Red Blood Cells 0.3 % Prothrombin Time 10.7 9.3-11.8 sec Prothrombin Time INR 1.01 0.9-1.15 Activated Partial Thromboplast Time 27.1 24.5-34.5 SEC Sodium Level 139 136-145 mmol/L Potassium Level 3.4 L 3.5-5.1 mmol/L Chloride Level 99 98-107 mmol/L Carbon Dioxide Level 24 20-31 mmol/L Anion Gap 16 H 5-15 Blood Urea Nitrogen 28 H 9-23 mg/dL Creatinine 0.94 0.700-1.30 mg/dL Glomerular Filtration Rate Calc 85 >90 mL/min BUN/Creatinine Ratio 29.8 H 10.0-20.0 Serum Glucose 181 H 74-106 mg/dL Hemoglobin A1c 6.9 H <5.7 % A1C Calcium Level 10.2 8.7-10.4 mg/dL Urine Color Light-yellow Yellow Urine Clarity Clear Clear Urine pH 5.5 5.0-9.0 Urine Specific [place] 1.025 1.001-1.035 Urine Protein Trace H Negative Urine Ketones Negative Negative Urine Blood Negative Negative /uL Urine Nitrite Negative Negative Urine Bilirubin Negative Negative Urine Urobilinogen Normal Negative mg/dL Urine Leukocyte Esterase Negative Negative /uL Urine RBC 1 0 - 3 /hpf Urine Microscopic WBC 2 0-3 /HPF Urine Squamous Epithelial Cells Few <5 /hpf Urine Bacteria None seen None Seen /hpf Urine Hyaline Casts Mod 0 - 2 /lpf Urine Glucose 4+ H Normal mg/dL Troponin I High Sensitivity 8 </=54 ng/L Test 03/08/25 17:02 Range/Units Lactic Acid Level 1.3 0.4-2.0 mmol/L Magnesium Level 2.0 1.6-2.6 mg/dL Total Bilirubin < 0.2 L 0.2-1.0 mg/dL Aspartate Amino Transferase (AST) 25 13-40 U/L Alanine Aminotransferase (ALT) 25 7-40 U/L Alkaline Phosphatase 81 46-116 U/L B-Type Natriuretic Peptide 55.64 0-100 pg/mL Total Protein 8.4 H 5.7-8.2 g/dL Albumin 4.2 3.2-4.8 g/dL Assessment 1. Splenic fluid collection possible infected hematoma versus abscess but clinically stable. Plan/Recommendation 1. We will review CT of the abdomen and pelvis with IV contrast. 2. We will consult Radiology for possible percutaneous drainage of the splenic fluid collection. Plan discussed with: Patient SANDRA HERRMANN MD Mar 09, 2025 10:56
--- NOTE | 2025-03-09 11:06 | DVH ---
EXAM: CT Abdomen and Pelvis With Intravenous Contrast CLINICAL INDICATION: Pain TECHNIQUE: Axial computed tomography images of the abdomen and pelvis with intravenous contrast. Th is CT exam was performed using one or more of the following dose reduction techniques: automated exp osure control, adjustment of the mA and/or kV according to patient size, and/or use of iterative romelia nstruction technique. COMPARISON: No relevant prior studies available. FINDINGS: ARTIFACTS: Attenuation artifacts. LUNG BASES: Bibasilar atelectasis. ABDOMEN: LIVER: Fatty infiltration of the liver. GALLBLADDER AND BILE DUCTS: Gallbladder is surgically absent. No ductal dilation. PANCREAS: Unremarkable. No mass. No ductal dilation. SPLEEN: Rim-enhancing lesion in the lateral aspect of the spleen with local mass effect measuring 8. 3 x 2.9 x 10.7 cm, concerning for abscess. ADRENALS: Unremarkable. No mass. KIDNEYS AND URETERS: Simple bilateral renal cysts. No hydronephrosis. STOMACH AND BOWEL: Constipation with suggestion of fecal impaction of the rectum. Fecal retention i n the colon consistent with constipation. No obstruction. No mucosal thickening. PELVIS: APPENDIX: No findings to suggest acute appendicitis. BLADDER: Unremarkable. No mass. REPRODUCTIVE: Unremarkable as visualized. ABDOMEN and PELVIS: INTRAPERITONEAL SPACE: Unremarkable. No free air. No significant fluid collection. BONES/JOINTS: Degenerative disc disease throughout the lumbar spine. Degenerative facet arthropathy throughout the lumbar spine, most prominent in the lower lumbar spine. No acute fracture. No dislo cation. SOFT TISSUES: Unremarkable. VASCULATURE: Scattered calcified atherosclerotic disease of aorta. No abdominal aortic aneurysm. LYMPH NODES: Unremarkable. No enlarged lymph nodes. IMPRESSION: 1. Rim-enhancing lesion in the lateral aspect of the spleen with local mass effect measuring 8.3 x 2 .9 x 10.7 cm, concerning for abscess. 2. Constipation with suggestion of fecal impaction of the rectum. 3. Fecal retention in the colon consistent with constipation. 4. Degenerative changes lumbar spine as described.
[2025-03-09] MEDS: POTASSIUM EFFERVESENT TAB 25 MEQ PO ONE (12:32)
[2025-03-09] MEDS: SODIUM CHLORIDE 0.9% 1,000 ML IV SCH (12:33)
[2025-03-09] MEDS: METOPROLOL SUCCINATE XL 50 MG TAB PO SCH (12:33)
[2025-03-09 14:01] LABS: INR 1.03 (0.9-1.15); Partial Thromboplastin Time 32.8 SEC (24.5-34.5); Prothrombin Time 10.9 sec (9.3-11.8)
[2025-03-09 18:46] LABS: COVID19 ANTIGEN SOFIA FIA NEGATIVE (NEGATIVE)
[2025-03-09] MEDS: PANTOPRAZOLE 40 MG/10 ML VIAL INJ IV SCH (21:44)
[2025-03-09] MEDS: INSULIN LANTUS (GLARGINE) 1 /0.01ml (100units/ml) SC SCH (22:16)
[2025-03-09] MEDS: HEPARIN DRIP/D5W 100UNITS/ML 250 ML IV SCH (22:31)
[2025-03-10] VITALS (14 sets, daily range): BP systolic 88–123; BP diastolic 44–80; PULSE 60–78; RESP 17–20; TEMP 97.2–98.2; O2SAT 92–100
[2025-03-10] MEDS: INSULIN LANTUS (GLARGINE) 1 /0.01ml (100units/ml) SC SCH (06:07)
[2025-03-10 07:22] LABS: Hematocrit 34.3 % (41.0-53.0); Hemoglobin 10.4 g/dL (13.5-17.5); Mean Corpuscular Hemoglobin 22.3 pg (28.0-32.0); Mean Corpuscular Volume 73.6 fL (80.0-100.0); Nucleated Red Blood Cells % 0.1 %
[2025-03-10 07:40] LABS: INR 0.98 (0.9-1.15); Partial Thromboplastin Time 31.6 SEC (24.5-34.5); Prothrombin Time 10.4 sec (9.3-11.8)
[2025-03-10 07:41] LABS: Alanine Aminotransferase 24 U/L (7-40); Albumin 3.9 g/dL (3.2-4.8); Alkaline Phosphatase 68 U/L (46-116); Anion Gap 10 (5-15); BUN/Creatinine Ratio 19.0 (10.0-20.0); Blood Urea Nitrogen 16 mg/dL (9-23); Calcium 10.2 mg/dL (8.7-10.4); Carbon Dioxide 28 mmol/L (20-31); Chloride 98 mmol/L (98-107); Total Protein 7.6 g/dL (5.7-8.2)
[2025-03-10 07:50] LABS: Bilirubin, Total 0.2 mg/dL (0.2-1.0); Glucose 135 mg/dL (74-106); Potassium 3.1 mmol/L (3.5-5.1); Sodium 136 mmol/L (136-145)
--- NOTE | 2025-03-10 08:28 | CONS ---
Pharmacy Clinical Information: BOLUS 5,000 UNITS HEPARIN IV AND INCREASE HEPARIN DRIP RATE TO 1300 UNITS/HR PER APTT OF 31.6 (SUBTHERAPEUTIC) NEXT APTT DRAW SCHEDULED FOR 1500 PER RX PROTOCOL CONNER BARROSO PHARMACIST Mar 10, 2025 08:28
[2025-03-10] MEDS: HEPARIN DRIP/D5W 100UNITS/ML 250 ML IV SCH ×3 (08:30→22:51)
--- NOTE | 2025-03-10 09:56 | DVHPNRES ---
Progress Note Date Seen: Mar 10, 2025 Resident Creating Document: TIMOTHY PACKER RESIDENT Medical Necessity Reason Pt with a Central, PICC or Fol: No Subjective Review of Systems Subjective HPI 74-year-old male, Daniel Jones with past medical history of AFib, hypertension, DM, COPD ( On home oxygen 3 L via nasal cannula), came to the emergency department yesterday with complaints of acute abdominal pain the epigastric region. He rates the pain as 10 x 10 in intensity, nonradiating, no aggravating or relieving factors. It was associated with nausea, but no vomiting, fever, chills, Chest pain. Patient also reports of progressive shortness of breath in the past few days associated with productive cough and green phlegm. PMH: AFib, hypertension, COPD, DM PSH: Bariatric surgery( gastrojejunostomy), cholecystectomy, right knee total replacement, 5 spinal laminectomies, Family history: Noncontributory Home medication: Xarelto, Trelegy, Jardiance, lisinopril, metformin, metoprolol, exheltro, gabapentin, ferrous sulphate, oxycodone, hydrochlorothiazide, chlorthalidine, cyclobenapine, zrytec, tramadol (occasionally) Social history: Lives with his uncle, denies smoking currently but used to smoke a couple of packs per day left 15 years ago, alcohol, drugs. Allergies: Statin 03/10 interval events- Patient seen and examined in the bedside. The patient reports having pain in his neck and back area due to lying down on bed 24x7, he reports his previous history of disc prolapse and laminectomy surgeries . He wanted a special kind of bed if it helps with the pain. Patient reports difficulty expectorating sputum due to neck pain. Declines respiratory therapy. He is swallowing his c ough instead. The patient reports having pain in the left lateral chest, no relation with respiration constant, 7/10 no relieving or aggravating factor. Rest of the ROS is negative Objective vital signs Vital Sign Date Time Temp Pulse Resp B/P (MAP) Pulse Ox O2 Delivery O2 Flow Rate FiO2 03/10/25 08:00 96 Nasal Cannula* 4 36 03/10/25 06:19 72 16 108/62 03/10/25 05:00 97.5 97.5 Total Intake and Output 03/09/25 03/09/25 03/10/25 15:00 23:00 07:00 Intake Total 200 ml 990 ml 800 ml Output Total 1000 ml 1125 ml Balance 200 ml -10 ml -325 ml medications Current Medications Medications Dose Ordered Sig/Manoj Route Start Time Stop Time Status Last Admin Dose Admin Albuterol 2.5 mg Q6HPRN PRN NEB 03/08/25 20:15 03/10/25 05:50 2.5 MG Empaglifozin 10 mg DAILY PO 03/09/25 10:00 03/09/25 10:03 10 MG Metoprolol Succinate 50 mg DAILY PO 03/09/25 10:00 03/09/25 12:33 50 MG Lisinopril 20 mg DAILY PO 03/09/25 10:00 03/09/25 10:04 20 MG Ipratropium [place] 0.5 mg Q6HPRN PRN NEB 03/08/25 20:15 03/10/25 05:50 0.5 MG Diagnostic Test (Pha) 1 strip ACHS 03/08/25 22:00 03/10/25 06:07 1 STRIP Insulin Human Regular ACHS SC 03/08/25 22:00 03/10/25 05:53 2 UNITS Dextrose 50 ml UD PRN IV 03/08/25 20:15 Ondansetron HCl 4 mg Q4HP PRN IV 03/08/25 20:15 03/10/25 06:19 4 MG Morphine Sulfate 2 mg Q4HPRN PRN IV 03/08/25 20:15 03/10/25 06:19 2 MG Insulin Glargine 10 units QAM SC 03/10/25 07:00 03/10/25 06:07 10 UNITS Piperacillin Sod/ Tazobactam Sod 100 ml @ 50 mls/hr Q8H IV 03/09/25 12:00 03/10/25 05:16 50 MLS/HR Doxycycline Hyclate 100 ml @ 50 mls/hr Q12HR IV 03/09/25 10:00 03/09/25 22:26 50 MLS/HR Sodium Chloride 1,000 ml @ 100 mls/hr Q10H IV 03/09/25 12:00 03/09/25 12:33 100 MLS/HR Pantoprazole Sodium 40 mg BID IV 03/09/25 22:00 03/09/25 21:44 40 MG Insulin Glargine 10 units HS SC 03/09/25 22:00 03/09/25 22:16 10 UNITS Heparin Sodium/ Dextrose 250 ml @ 13 mls/hr [id number] IV 03/10/25 08:30 Examination Pt is lying on bed General Appearance: Alert, Oriented X3, Cooperative, Not in acute distress. Nasal Cannula oxygen in place HEENT: Atraumatic, Mucous membranes moist/pink Respiratory: Clear to auscultation, Normal air movement, No added sounds Cardiovascular: Regular rate, Normal S1, Normal S2, No murmurs Abdominal: Active bowel sounds, Soft, no distention, tenderness present in epigastric and left upper quadrant Extremities: No edema, Normal pulses, No tenderness/swelling Skin: No Significant rash, except past surgical scars Neuro: Normal speech, sensorimotor deficits none Psych/Mental Status: Mental status NL, Mood NL Nurse was there as gluing machine operator during examination laboratory and microbiology Laboratory Tests 03/10/25 06:10 Test 03/10/25 06:10 Range/Units Serum Glucose 135 H 74-106 mg/dL Labs and/or images reviewed: Labs reviewed by me, Image(s) reviewed by me Problem List/Assessment/Plan Problem List/Assessment/Plan #Acute Gram-positive or Gram-negative bacterial pneumonia #Pleural effusions: small left and tiny right as seen below on CT -Chest x-ray shows Low lung volumes broncho vascular crowding and bibasilar atelectasis. -Abdomen and pelvis CT shows: Pulmonary ground-glass opacities which can be secondary to infection, hypoventilation, inflammatory etiologies Bibasilar pulmonary atelectasis and developing left lower lobe consolidation. -Flu and COVID test ordered -breathing treatment ordered -Zosyn and doxycycline -respiratory cultures and blood cultures # ?Intra-abdominal/splenic abscess # Ileus versus obstruction -Zosyn -evident on CT abdomen pelvis with contrast showed Rim-enhancing lesion in the lateral aspect of the spleen with local mass effect measuring 8.3 x 2.9 x 10.7 cm, concerning for abscess. -Surgery consulted -IR consulted for possible percutaneous drainage of the splenic fluid collection. -[place] p.r.n. added for pain # AFib with secondary hypercoagulable state -heparin #Hypokalemia(3.4) -Repleted potassium #Uncontrolled DM -Insulin on sliding scale placed -Hb1Ac order next # [id number]/L sacral iliac degenerate disease: Lumbar degenerative disc disease facet hypertrophic changes -outpatient follow-up GI prophylaxis: Protonix DVT prophylaxis: Heparin Diet: low-salt diet, diabetic diet Acute Gram-positive and negative bacterial pneumonia, splenic abscess- pending IR consult to drain splenic abscess, meanwhile we will continue heparin drip Goals of care discussed with the patient for more than 27 minutes: Full code status Case discussed with Dr. Ponce, patient and nurse Plan discussed with: Patient, Other (RN) Date of Service: Mar 10, 2025 Billing Provider: SALVADOR PONCE MD Common Visit Codes: [id number] INP/OBS CARE(HIGH) TIMOTHY PACKER RESIDENT Mar 10, 2025 09:56 SALVADOR PONCE MD Mar 12, 2025 20:43
[2025-03-10] MEDS: HEPARIN SODIUM (PORCINE) 5000 UNITS/ML 1ML VIAL IV ONE (11:00)
[2025-03-10] MEDS: POTASSIUM CHL 20 Meq TABLET PO ONE (12:09)
--- NOTE | 2025-03-10 12:10 | DVHPN2 ---
Progress Note - Dictate Date Seen: Mar 10, 2025 Medical Necessity Reason Pt with a Central, PICC or Fol: No Subjective E: no major events o/n. c/o back pain from laying in bed. denies abd pain. vital signs Vital Sign Date Time Temp Pulse Resp B/P (MAP) Pulse Ox O2 Delivery O2 Flow Rate FiO2 03/10/25 10:57 78 108/62 03/10/25 09:00 97.2 19 95 97.2 03/10/25 08:00 Nasal Cannula* 4 36 Total Intake and Output 03/09/25 03/09/25 03/10/25 15:00 23:00 07:00 Intake Total 200 ml 990 ml 800 ml Output Total 1000 ml 1125 ml Balance 200 ml -10 ml -325 ml medications Current Medications Medications Dose Ordered Sig/Manoj Route Start Time Stop Time Status Last Admin Dose Admin Albuterol 2.5 mg Q6HPRN PRN NEB 03/08/25 20:15 03/10/25 05:50 2.5 MG Empaglifozin 10 mg DAILY PO 03/09/25 10:00 03/10/25 10:54 10 MG Metoprolol Succinate 50 mg DAILY PO 03/09/25 10:00 03/10/25 10:57 50 MG Lisinopril 20 mg DAILY PO 03/09/25 10:00 03/09/25 10:04 20 MG Ipratropium [place] 0.5 mg Q6HPRN PRN NEB 03/08/25 20:15 03/10/25 05:50 0.5 MG Diagnostic Test (Pha) 1 strip ACHS 03/08/25 22:00 03/10/25 06:07 1 STRIP Insulin Human Regular ACHS SC 03/08/25 22:00 03/10/25 05:53 2 UNITS Dextrose 50 ml UD PRN IV 03/08/25 20:15 Ondansetron HCl 4 mg Q4HP PRN IV 03/08/25 20:15 03/10/25 06:19 4 MG Morphine Sulfate 2 mg Q4HPRN PRN IV 03/08/25 20:15 03/10/25 06:19 2 MG Insulin Glargine 10 units QAM SC 03/10/25 07:00 03/10/25 06:07 10 UNITS Piperacillin Sod/ Tazobactam Sod 100 ml @ 50 mls/hr Q8H IV 03/09/25 12:00 03/10/25 05:16 50 MLS/HR Doxycycline Hyclate 100 ml @ 50 mls/hr Q12HR IV 03/09/25 10:00 03/10/25 10:54 50 MLS/HR Sodium Chloride 1,000 ml @ 100 mls/hr Q10H IV 03/09/25 12:00 03/10/25 10:49 100 MLS/HR Pantoprazole Sodium 40 mg BID IV 03/09/25 22:00 03/10/25 10:56 40 MG Insulin Glargine 10 units HS SC 03/09/25 22:00 03/09/25 22:16 10 UNITS Heparin Sodium/ Dextrose 250 ml @ 13 mls/hr [id number] IV 03/10/25 08:30 03/10/25 08:30 13 MLS/HR objective GEN: NAD ABD: soft. NT/ND. laboratory and microbiology Laboratory Tests 03/10/25 06:10 Test 03/10/25 06:10 Range/Units Serum Glucose 135 H 74-106 mg/dL Assessment/Plan A: 1. Splenic fluid collection possible infected hematoma versus abscess but clinically stable. P: 1. percutaneous drainage by IR on Wednesday. Plan discussed with: Patient SANDRA HERRMANN MD Mar 10, 2025 12:09
[2025-03-10] MEDS ORDERED: PIPERACILLIN-TAZOB 3.375GM 100 ML IV SCH (15:00)
[2025-03-10 15:29] LABS: INR 1.03 (0.9-1.15); Prothrombin Time 10.9 sec (9.3-11.8)
[2025-03-10 15:33] LABS: Partial Thromboplastin Time 76.0 SEC (24.5-34.5)
--- NOTE | 2025-03-10 15:57 | CONS ---
Pharmacy Clinical Information: DECREASE HEPARIN DRIP RATE TO 1100 UNITS/HR PER APTT OF 76.0 (SUPRATHERAPEUTIC) NEXT APTT DRAW SCHEDULED FOR 2200 PER RX PROTOCOL CONNER BARROSO PHARMACIST Mar 10, 2025 15:57
[2025-03-10 17:28] LABS: Alanine Aminotransferase 25 U/L (7-40); Albumin 3.2 g/dL (3.2-4.8); Alkaline Phosphatase 58 U/L (46-116); Anion Gap 9 (5-15); BUN/Creatinine Ratio 21.1 (10.0-20.0); Blood Urea Nitrogen 15 mg/dL (9-23); Calcium 9.3 mg/dL (8.7-10.4); Carbon Dioxide 28 mmol/L (20-31); Chloride 101 mmol/L (98-107); Sodium 138 mmol/L (136-145); Total Protein 6.1 g/dL (5.7-8.2)
[2025-03-10 17:47] LABS: Bilirubin, Total < 0.2 mg/dL (0.2-1.0); Glucose 124 mg/dL (74-106); Potassium 3.4 mmol/L (3.5-5.1)
[2025-03-10] MEDS: HYDROcodone-ACET 5/325MG TAB PO PRN (20:29)
[2025-03-10] MEDS: PIPERACILLIN-TAZOB 3.375GM 100 ML IV SCH (20:46)
[2025-03-10 22:25] LABS: INR 1.01 (0.9-1.15); Partial Thromboplastin Time 39.7 SEC (24.5-34.5); Prothrombin Time 10.7 sec (9.3-11.8)
[2025-03-11] VITALS (14 sets, daily range): BP systolic 127–143; BP diastolic 59–90; PULSE 68–78; RESP 16–19; TEMP 97.4–99.4; O2SAT 93–99
[2025-03-11 06:00] LABS: Mean Corpuscular Hemoglobin 22.0 pg (28.0-32.0)
[2025-03-11 06:05] LABS: Hematocrit 33.5 % (41.0-53.0); Hemoglobin 10.0 g/dL (13.5-17.5); Mean Corpuscular Volume 73.3 fL (80.0-100.0); Nucleated Red Blood Cells % 0.3 %
[2025-03-11 06:12] LABS: INR 1.03 (0.9-1.15); Partial Thromboplastin Time 48.8 SEC (24.5-34.5); Prothrombin Time 10.9 sec (9.3-11.8)
[2025-03-11] MEDS: HEPARIN DRIP/D5W 100UNITS/ML 250 ML IV SCH (06:24)
--- NOTE | 2025-03-11 09:02 | DVHPNRES ---
Progress Note Date Seen: Mar 11, 2025 Resident Creating Document: NANCY KUMAR RESIDENT Medical Necessity Reason Pt with a Central, PICC or Fol: Yes The following are medically ne: Miller Catheter Subjective Review of Systems 74-year-old male, Daniel Jones with past medical history of AFib, hypertension, DM, COPD ( On home oxygen 3 L via nasal cannula), came to the emergency department yesterday with complaints of acute abdominal pain the epigastric region. He rates the pain as 10 x 10 in intensity, nonradiating, no aggravating or relieving factors. It was associated with nausea, but no vomiting, fever, chills, Chest pain. Patient also reports of progressive shortness of breath in the past few days associated with productive cough and green phlegm. PMH: AFib, hypertension, COPD, DM PSH: Bariatric surgery( gastrojejunostomy), cholecystectomy, right knee total replacement, 5 spinal laminectomies, Family history: Noncontributory Home medication: Xarelto, Trelegy, Jardiance, lisinopril, metformin, metoprolol, exheltro, gabapentin, ferrous sulphate, oxycodone, hydrochlorothiazide, chlorthalidine, cyclobenapine, zrytec, tramadol (occasionally) Social history: Lives with his uncle, denies smoking currently but used to smoke a couple of packs per day left 15 years ago, alcohol, drugs. Allergies: Statin ROS: Patient seen and examined in the bedside. The patient reports having pain in his neck and back area due to lying down on bed 24x7, he reports his previous history of disc prolapse and laminectomy surgeries . He wants to sit in a chair twice a day. Patient reports having pain in the left lateral chest, no relation with respiration constant, 7/10 no relieving or aggravating factor. Rest of the ROS is negative Objective vital signs Vital Sign Date Time Temp Pulse Resp B/P (MAP) Pulse Ox O2 Delivery O2 Flow Rate FiO2 03/11/25 08:00 70 Nasal Cannula* 4 36 03/11/25 05:44 17 128/59 03/11/25 05:00 97.8 97 97.8 Total Intake and Output 03/10/25 03/10/25 03/11/25 15:00 23:00 07:00 Intake Total 1932 ml 1010 ml Output Total 1200 ml 650 ml Balance 732 ml 360 ml medications Current Medications Medications Dose Ordered Sig/Manoj Route Start Time Stop Time Status Last Admin Dose Admin Albuterol 2.5 mg Q6HPRN PRN NEB 03/08/25 20:15 03/10/25 05:50 2.5 MG Empaglifozin 10 mg DAILY PO 03/09/25 10:00 03/10/25 10:54 10 MG Metoprolol Succinate 50 mg DAILY PO 03/09/25 10:00 03/10/25 10:57 50 MG Lisinopril 20 mg DAILY PO 03/09/25 10:00 03/09/25 10:04 20 MG Ipratropium [place] 0.5 mg Q6HPRN PRN NEB 03/08/25 20:15 03/10/25 05:50 0.5 MG Diagnostic Test (Pha) 1 strip ACHS 03/08/25 22:00 03/11/25 05:54 1 STRIP Insulin Human Regular ACHS SC 03/08/25 22:00 03/10/25 12:15 2 UNITS Dextrose 50 ml UD PRN IV 03/08/25 20:15 Ondansetron HCl 4 mg Q4HP PRN IV 03/08/25 20:15 03/11/25 05:43 4 MG Morphine Sulfate 2 mg Q4HPRN PRN IV 03/08/25 20:15 03/11/25 05:44 2 MG Insulin Glargine 10 units QAM SC 03/10/25 07:00 03/10/25 06:07 10 UNITS Doxycycline Hyclate 100 ml @ 50 mls/hr Q12HR IV 03/09/25 10:00 03/11/25 00:47 50 MLS/HR Sodium Chloride 1,000 ml @ 100 mls/hr Q10H IV 03/09/25 12:00 03/10/25 17:17 100 MLS/HR Pantoprazole Sodium 40 mg BID IV 03/09/25 22:00 03/10/25 20:46 40 MG Insulin Glargine 10 units HS SC 03/09/25 22:00 03/09/25 22:16 10 UNITS Piperacillin Sod/ Tazobactam Sod 100 ml @ 25 mls/hr Q8H IV 03/10/25 20:00 03/11/25 05:43 25 MLS/HR Acetaminophen/ Hydrocodone Bitart 1 tab Q6HPRN PRN PO 03/10/25 16:45 03/11/25 02:30 1 TAB Heparin Sodium/ Dextrose 250 ml @ 15 mls/hr [id number] IV 03/11/25 06:30 03/11/25 06:24 15 MLS/HR Examination Pt is lying on bed General Appearance: Alert, Oriented X3, Cooperative, Not in acute distress. Nasal Cannula oxygen in place HEENT: Atraumatic, Mucous membranes moist/pink Respiratory: Clear to auscultation, Normal air movement, No added sounds Cardiovascular: Regular rate, Normal S1, Normal S2, No murmurs Abdominal: Active bowel sounds, Soft, no distention, tenderness present in epigastric and left upper quadrant Extremities: No edema, Normal pulses, No tenderness/swelling Skin: No Significant rash, except past surgical scars Neuro: Normal speech, sensorimotor deficits none Psych/Mental Status: Mental status NL, Mood NL Nurse was there as pest technician during examination laboratory and microbiology Laboratory Tests 03/11/25 04:18 03/10/25 14:50 Test 03/10/25 14:50 Range/Units Serum Glucose 124 H 74-106 mg/dL Microbiology Date/Time Source Procedure Growth Status 03/09/25 17:55 Nose MRSA Screen - Final Complete Labs and/or images reviewed: Labs reviewed by me, Image(s) reviewed by me Problem List/Assessment/Plan Problem List/Assessment/Plan #Acute Gram-positive or Gram-negative bacterial pneumonia #Pleural effusions: small left and tiny right as seen below on CT -Chest x-ray shows Low lung volumes broncho vascular crowding and bibasilar atelectasis. -Abdomen and pelvis CT shows: Pulmonary ground-glass opacities which can be secondary to infection, hypoventilation, inflammatory etiologies Bibasilar pulmonary atelectasis and developing left lower lobe consolidation. -Flu and COVID test ordered -breathing treatment ordered -Zosyn and doxycycline -respiratory cultures and blood cultures # ?Intra-abdominal/splenic abscess # Ileus versus obstruction -Zosyn -evident on CT abdomen pelvis with contrast showed Rim-enhancing lesion in the lateral aspect of the spleen with local mass effect measuring 8.3 x 2.9 x 10.7 cm, concerning for abscess. -Surgery consulted-percutaneous drainage by IR on Wednesday. # AFib without RVR secondary hypercoagulable state -heparin -aptt repeated #Hypokalemia(3.4) -Repleted potassium #Uncontrolled DM -Insulin on sliding scale placed -Hb1Ac order next # [id number]/ Lumbosacral iliac degenerate disease: Lumbar degenerative disc disease facet hypertrophic changes -outpatient follow-up GI prophylaxis: Protonix DVT prophylaxis: Heparin Diet: low-salt diet, diabetic diet Goals of care discussed with the patient for more than 27 minutes: Full code status Case discussed with Dr. Hoff, patient and nurse. Plan discussed with: Patient, Other (RN) Dietary Evaluation Review Comments: 1) Glucerna 240ml BID 2) Johnnie 1 pk BID, VitC 500mg BID, MVI 1 tab daily, Zinc sulfate 220mg BID x 10 days 3) Advance diet to CCHO 75gm + 2gm Na diet 4) Refer Trimming Operator on DC Expected Outcomes/Goals: To meet >75% estimated needs Fu 3-5 days Date of Service: Mar 11, 2025 Billing Provider: SALVADOR HOFF MD Common Visit Codes: [id number] INP/OBS CARE(HIGH) NANCY KUMAR RESIDENT Mar 11, 2025 09:02 SALVADOR HOFF MD Mar 12, 2025 21:23
--- NOTE | 2025-03-11 09:35 | DVHPN2 ---
Progress Note - Dictate Date Seen: Mar 11, 2025 Medical Necessity Reason Pt with a Central, PICC or Fol: Yes The following are medically ne: Miller Catheter Subjective E: no major events o/n. c/o back pain from laying in bed. denies abd pain. vital signs Vital Sign Date Time Temp Pulse Resp B/P (MAP) Pulse Ox O2 Delivery O2 Flow Rate FiO2 03/11/25 09:20 135/75 03/11/25 08:00 70 Nasal Cannula* 4 36 03/11/25 07:29 96 03/11/25 05:44 17 03/11/25 05:00 97.8 97.8 Total Intake and Output 03/10/25 03/10/25 03/11/25 15:00 23:00 07:00 Intake Total 1932 ml 1010 ml Output Total 1200 ml 650 ml Balance 732 ml 360 ml medications Current Medications Medications Dose Ordered Sig/Manoj Route Start Time Stop Time Status Last Admin Dose Admin Albuterol 2.5 mg Q6HPRN PRN NEB 03/08/25 20:15 03/10/25 05:50 2.5 MG Empaglifozin 10 mg DAILY PO 03/09/25 10:00 03/11/25 09:20 10 MG Metoprolol Succinate 50 mg DAILY PO 03/09/25 10:00 03/11/25 09:20 50 MG Lisinopril 20 mg DAILY PO 03/09/25 10:00 03/11/25 09:20 20 MG Ipratropium [place] 0.5 mg Q6HPRN PRN NEB 03/08/25 20:15 03/10/25 05:50 0.5 MG Diagnostic Test (Pha) 1 strip ACHS 03/08/25 22:00 03/11/25 05:54 1 STRIP Insulin Human Regular ACHS SC 03/08/25 22:00 03/10/25 12:15 2 UNITS Dextrose 50 ml UD PRN IV 03/08/25 20:15 Ondansetron HCl 4 mg Q4HP PRN IV 03/08/25 20:15 03/11/25 05:43 4 MG Morphine Sulfate 2 mg Q4HPRN PRN IV 03/08/25 20:15 03/11/25 05:44 2 MG Insulin Glargine 10 units QAM SC 03/10/25 07:00 03/10/25 06:07 10 UNITS Doxycycline Hyclate 100 ml @ 50 mls/hr Q12HR IV 03/09/25 10:00 03/11/25 09:21 50 MLS/HR Sodium Chloride 1,000 ml @ 100 mls/hr Q10H IV 03/09/25 12:00 03/10/25 17:17 100 MLS/HR Pantoprazole Sodium 40 mg BID IV 03/09/25 22:00 03/11/25 09:20 40 MG Insulin Glargine 10 units HS SC 03/09/25 22:00 03/09/25 22:16 10 UNITS Piperacillin Sod/ Tazobactam Sod 100 ml @ 25 mls/hr Q8H IV 03/10/25 20:00 03/11/25 05:43 25 MLS/HR Acetaminophen/ Hydrocodone Bitart 1 tab Q6HPRN PRN PO 03/10/25 16:45 03/11/25 09:20 1 TAB Heparin Sodium/ Dextrose 250 ml @ 15 mls/hr [id number] IV 03/11/25 06:30 03/11/25 06:24 15 MLS/HR objective GEN: NAD ABD: soft. NT/ND. laboratory and microbiology Laboratory Tests 03/11/25 04:18 03/10/25 14:50 Test 03/10/25 14:50 Range/Units Serum Glucose 124 H 74-106 mg/dL Assessment/Plan A: 1. Splenic fluid collection possible infected hematoma versus abscess but clinically stable. P: 1. percutaneous drainage by IR tomorrow. Dietary Evaluation Review Comments: 1) Glucerna 240ml BID 2) Johnnie 1 pk BID, VitC 500mg BID, MVI 1 tab daily, Zinc sulfate 220mg BID x 10 days 3) [facility] + 2[facility] Na diet 4) Refer Seismograph Operator on DC Expected Outcomes/Goals: To meet >75% estimated needs Fu 3-5 days Plan discussed with: Patient SANDRA HERRMANN MD Mar 11, 2025 09:34
[2025-03-11 12:50] LABS: INR 1.04 (0.9-1.15); Partial Thromboplastin Time 59.7 SEC (24.5-34.5); Prothrombin Time 11.0 sec (9.3-11.8)
[2025-03-11] MEDS: IPRATROPIUM BROM 0.5 MG/2.5ML INH SOL ONE (14:35)
[2025-03-11] MEDS: ALBUTEROL SULF 2.5 MG/0.5ML(0.5%) NEB SOLN ONE (14:35)
[2025-03-11 19:17] LABS: INR 1.03 (0.9-1.15); Partial Thromboplastin Time 51.7 SEC (24.5-34.5); Prothrombin Time 10.9 sec (9.3-11.8)
--- NOTE | 2025-03-11 19:41 | CONS ---
Pharmacy Clinical Information: PTT=51.7 @ 1850, THERAPEUTIC X 2, NO CHANGES, CONTINUE RATE 1500 UNITS/HR=15 ML/HR, NEXT PTT @ 0100. KVNG BARRETO Mar 11, 2025 19:41
[2025-03-12] VITALS (11 sets, daily range): BP systolic 129–163; BP diastolic 52–90; PULSE 72–90; RESP 17–26; TEMP 98.1–98.6; O2SAT 93–98
[2025-03-12] MEDS: MECLIZINE HCL 25 MG TAB PO PRN (01:15)
[2025-03-12 06:12] LABS: Hematocrit 35.5 % (41.0-53.0); Hemoglobin 10.8 g/dL (13.5-17.5); Mean Corpuscular Hemoglobin 22.0 pg (28.0-32.0); Mean Corpuscular Volume 72.6 fL (80.0-100.0); Nucleated Red Blood Cells % 0.4 %
[2025-03-12] MEDS: diphenhdrAMINE HCL 50 MG/1 ML VL IV ONE (06:28)
[2025-03-12 06:32] LABS: INR 1.05 (0.9-1.15); Prothrombin Time 11.1 sec (9.3-11.8)
[2025-03-12 06:41] LABS: Partial Thromboplastin Time 70.6 SEC (24.5-34.5)
[2025-03-12] MEDS: fentaNYL CITRATE 100 MCG/2 ML VL IV ONE (09:30)
[2025-03-12] MEDS: MIDAZOLAM HCL 2MG/2ML 2ml VIAL (1mg/ml) IV ONE (09:30)
[2025-03-12] MEDS: LIDOCAINE 2%HCL (LOCAL ANESTH.) INJ 10ml MDV ONE (09:59)
--- NOTE | 2025-03-12 11:43 | ECG ---
[facility] Test Date: 2025-03-08 Test Time: 16:05:26 Pat Name: STEPHEN MARRERO Department: ED Room: [facility] Gender: M Administrative Support Assistant: víctor : 1950 Requested By: AMELIA ROJO Order Number: [id number] Reading MD: Twan Grullon Measurements Intervals [place] Rate: 87 P: 186 MA: 183 QRS: -82 QRSD: 174 T: 100 QT: 415 QTc: 500 Interpretive Statements Sinus or ectopic atrial rhythm RBBB and LAFB Electronically Signed On 03-15-2025 18:09:25 PDT by Twan Grullon Please click the below link to view image of tracing.
[2025-03-12] MEDS: HYDROcodone-ACET 7.5/325MG TAB PO ONE (14:22)
--- NOTE | 2025-03-12 14:41 | DVHPNRES ---
Progress Note Date Seen: Mar 12, 2025 Resident Creating Document: NANCY KUMAR RESIDENT Medical Necessity Reason Pt with a Central, PICC or Fol: Yes The following are medically ne: Miller Catheter Subjective Review of Systems 74-year-old male, Daniel Jones with past medical history of AFib, hypertension, DM, COPD ( On home oxygen 3 L via nasal cannula), came to the emergency department yesterday with complaints of acute abdominal pain the epigastric region. He rates the pain as 10 x 10 in intensity, nonradiating, no aggravating or relieving factors. It was associated with nausea, but no vomiting, fever, chills, Chest pain. Patient also reports of progressive shortness of breath in the past few days associated with productive cough and green phlegm. PMH: AFib, hypertension, COPD, DM PSH: Bariatric surgery( gastrojejunostomy), cholecystectomy, right knee total replacement, 5 spinal laminectomies, Family history: Noncontributory Home medication: Xarelto, Trelegy, Jardiance, lisinopril, metformin, metoprolol, exheltro, gabapentin, ferrous sulphate, oxycodone, hydrochlorothiazide, chlorthalidine, cyclobenapine, zrytec, tramadol (occasionally) Social history: Lives with his uncle, denies smoking currently but used to smoke a couple of packs per day left 15 years ago, alcohol, drugs. Allergies: Statin ROS: Patient seen and examined in the bedside. The patient reports having pain in his neck and back area due to lying down on bed 24x7, he reports his previous history of disc prolapse and laminectomy surgeries . Patient reports His abdominal pain has decreased but he feels tired and not well in comparison to yesterday. He is anxious. He complains of slight difficulty in breathing. Rest of the ROS is negative Objective vital signs Vital Sign Date Time Temp Pulse Resp B/P (MAP) Pulse Ox O2 Delivery O2 Flow Rate FiO2 03/12/25 13:00 98.6 72 17 131/52 (78) 98 98.6 03/12/25 10:00 Nasal Cannula* 4 36 Total Intake and Output 03/11/25 03/11/25 03/12/25 15:00 23:00 07:00 Intake Total 200 ml 700 ml 800 ml Output Total 1350 ml 1400 ml Balance 200 ml -650 ml -600 ml medications Current Medications Medications Dose Ordered Sig/Manoj Route Start Time Stop Time Status Last Admin Dose Admin Albuterol 2.5 mg Q6HPRN PRN NEB 03/08/25 20:15 03/11/25 14:40 2.5 MG Empaglifozin 10 mg DAILY PO 03/09/25 10:00 03/12/25 12:13 10 MG Metoprolol Succinate 50 mg DAILY PO 03/09/25 10:00 03/12/25 12:13 50 MG Lisinopril 20 mg DAILY PO 03/09/25 10:00 03/12/25 12:14 20 MG Ipratropium [place] 0.5 mg Q6HPRN PRN NEB 03/08/25 20:15 03/11/25 14:40 0.5 MG Diagnostic Test (Pha) 1 strip ACHS 03/08/25 22:00 03/12/25 11:30 1 STRIP Insulin Human Regular ACHS SC 03/08/25 22:00 03/11/25 21:01 2 UNITS Dextrose 50 ml UD PRN IV 03/08/25 20:15 Morphine Sulfate 2 mg Q4HPRN PRN IV 03/08/25 20:15 03/12/25 12:15 2 MG Insulin Glargine 10 units QAM SC 03/10/25 07:00 03/10/25 06:07 10 UNITS Doxycycline Hyclate 100 ml @ 50 mls/hr Q12HR IV 03/09/25 10:00 03/12/25 09:22 50 MLS/HR Pantoprazole Sodium 40 mg BID IV 03/09/25 22:00 03/12/25 09:22 40 MG Insulin Glargine 10 units HS SC 03/09/25 22:00 03/09/25 22:16 10 UNITS Piperacillin Sod/ Tazobactam Sod 100 ml @ 25 mls/hr Q8H IV 03/10/25 20:00 03/12/25 14:27 25 MLS/HR Acetaminophen/ Hydrocodone Bitart 1 tab Q6HPRN PRN PO 03/10/25 16:45 03/12/25 09:22 1 TAB Heparin Sodium/ Dextrose 250 ml @ 15 mls/hr [id number] IV 03/11/25 06:30 03/11/25 16:39 15 MLS/HR Meclizine HCl 25 mg Q6HPRN PRN PO 03/12/25 01:15 03/12/25 07:57 25 MG Lorazepam 1 mg Q6HP PRN IV 03/12/25 13:30 Examination Pt is lying on bed General Appearance: Alert, Oriented X3, Cooperative, Not in acute distress. HEENT: Atraumatic, Mucous membranes moist/pink, on oxygen 5L via nasal cannula Respiratory: Clear to auscultation, Normal air movement, No added sounds Cardiovascular: Regular rate, Normal S1, Normal S2, No murmurs Abdominal: Active bowel sounds, Soft, no distention, tenderness present in epigastric region Extremities: No edema, Normal pulses, No tenderness/swelling Skin: No Significant rash, except past surgical scars Neuro: Normal speech, sensorimotor deficits none Psych/Mental Status: Mental status NL, Mood NL Nurse was there as protein chemist during examination laboratory and microbiology Laboratory Tests 03/12/25 05:36 03/10/25 14:50 Test 03/10/25 14:50 Range/Units Serum Glucose 124 H 74-106 mg/dL Microbiology Date/Time Source Procedure Growth Status 03/09/25 17:55 Nose MRSA Screen - Final Complete Labs and/or images reviewed: Labs reviewed by me, Image(s) reviewed by me Problem List/Assessment/Plan Problem List/Assessment/Plan #Acute Gram-positive or Gram-negative bacterial pneumonia #Pleural effusions: small left and tiny right as seen below on CT -Chest x-ray shows Low lung volumes broncho vascular crowding and bibasilar atelectasis. -Abdomen and pelvis CT shows: Pulmonary ground-glass opacities which can be secondary to infection, hypoventilation, inflammatory etiologies Bibasilar pulmonary atelectasis and developing left lower lobe consolidation. -Flu and COVID test negative -Breathing treatment ordered -Zosyn and doxycycline -respiratory cultures and blood cultures pending # ?Intra-abdominal/splenic abscess # Ileus versus obstruction -Zosyn -Evident on CT abdomen pelvis with contrast showed Rim-enhancing lesion in the lateral aspect of the spleen with local mass effect measuring 8.3 x 2.9 x 10.7 cm, concerning for abscess. -Surgery consulted, advised percutaneous drainage by IR, performed today -Patient resume normal diabetic diet # AFib without RVR secondary hypercoagulable state -heparin -aptt repeated #Hypokalemia(3.4) -Repleted potassium #Uncontrolled DM -Insulin on sliding scale placed -Hb1Ac order next # [id number]/ Lumbosacral iliac degenerate disease: Lumbar degenerative disc disease facet hypertrophic changes -outpatient follow-up -PT evaluation for weakness ordered GI prophylaxis: Protonix DVT prophylaxis: Heparin Diet: low-salt diet, diabetic diet Goals of care discussed with the patient for more than 27 minutes: Full code status Case discussed with Dr. Hoff, patient and nurse. Plan discussed with: Patient, Other (rn) My Orders My Orders Orders - NANCY KUMAR Procedure Category Date Status Time Pt Request For Service PT 03/11/25 Logged 17:23 Dietary Evaluation Review Comments: 1) Glucerna 240ml BID 2) Johnnie 1 pk BID, VitC 500mg BID, MVI 1 tab daily, Zinc sulfate 220mg BID x 10 days 3) Advance diet to CCHO 75gm + 2gm Na diet 4) Refer [facility] [employer] on DC Expected Outcomes/Goals: To meet >75% estimated needs Fu 3-5 days Date of Service: Mar 12, 2025 Billing Provider: SALVADOR HOFF MD Common Visit Codes: [id number] INP/OBS CARE(HIGH) NANCY KUMAR RESIDENT Mar 12, 2025 14:41 SALVADOR HOFF MD Mar 12, 2025 21:47
[2025-03-12] MEDS: HEPARIN DRIP/D5W 100UNITS/ML 250 ML IV SCH (17:35)
--- NOTE | 2025-03-12 19:44 | DVH ---
US ULTRA GUIDED ABCESS DRAINAGE, HISTORY: SPLENIC abscess DRAINAGE PROCEDURE: An informed consent was obtained. The patient was placed supine on the interventional tabl e. IV sedation was administered. The suspicious fluid collection was localized with ultrasound / CT a nd the overlying skin prepped with chlorhexidine which was allowed to dry and draped in the usual angela rile fashion. Time out was performed and infiltrated with 1% Xylocaine. With US/CT guidance, 19-gauge centesis needle catheter was advanced into the fluid collection. Small amount was aspirated for appr opriate microbiology/cytology/microbiology and cytology analysis. A 0.035 wire was advanced into the fluid collection. After serial dilatation, a 8 [place] multipurpose pigtail catheter was placed into t he collection. Approximately 100 cc of purulent fluid was aspirated. The drain was sutured at the ski n surface and connected to suction drainage. No immediate complication was identified. Post procedure CT was obtained. SEDATION: Dr. Delmi Cota was personally responsible for the administration of moderate sedation during the procedure performed, including the use of an independent trained observer who had no other duties during the procedure. The drugs utilized were IV fentanyl and versed (see nursing log for details). The total time of supervision by the attending physician was approximately 45 minutes. FINDINGS: Limited US scan of through the abdomen demonstrates a fluid collection in the perisplenic space. Collection appears complex. Post procedure scan shows pigtail drain within the collection , wh ich is decreased in size. IMPRESSION: Successful US and CT guided placement of 8 haitian pigtail drain into a perisplenic abscess with 100 m L removed. PLAN: Routine tube care.
--- NOTE | 2025-03-12 19:44 | DVH ---
US ULTRA GUIDED ABCESS DRAINAGE, HISTORY: SPLENIC abscess DRAINAGE PROCEDURE: An informed consent was obtained. The patient was placed supine on the interventional tabl e. IV sedation was administered. The suspicious fluid collection was localized with ultrasound / CT a nd the overlying skin prepped with chlorhexidine which was allowed to dry and draped in the usual angela rile fashion. Time out was performed and infiltrated with 1% Xylocaine. With US/CT guidance, 19-gauge centesis needle catheter was advanced into the fluid collection. Small amount was aspirated for appr opriate microbiology/cytology/microbiology and cytology analysis. A 0.035 wire was advanced into the fluid collection. After serial dilatation, a 8 [place] multipurpose pigtail catheter was placed into t he collection. Approximately 100 cc of purulent fluid was aspirated. The drain was sutured at the ski n surface and connected to suction drainage. No immediate complication was identified. Post procedure CT was obtained. SEDATION: Dr. Delmi Cota was personally responsible for the administration of moderate sedation during the procedure performed, including the use of an independent trained observer who had no other duties during the procedure. The drugs utilized were IV fentanyl and versed (see nursing log for details). The total time of supervision by the attending physician was approximately 45 minutes. FINDINGS: Limited US scan of through the abdomen demonstrates a fluid collection in the perisplenic space. Collection appears complex. Post procedure scan shows pigtail drain within the collection , wh ich is decreased in size. IMPRESSION: Successful US and CT guided placement of 8 faroese pigtail drain into a perisplenic abscess with 100 m L removed. PLAN: Routine tube care.
[2025-03-12] MEDS: LORazepam 2MG/ML-1ML VIAL IV PRN (20:02)
[2025-03-12] MEDS ORDERED: hydrALAZINE HCL 20 MG/ML VL IV ONE (22:00)
[2025-03-12] MEDS: ALBUTEROL SULF 2.5 MG/0.5ML(0.5%) NEB SOLN NEB ONE (22:00)
[2025-03-12] MEDS: IPRATROPIUM BROM 0.5 MG/2.5ML INH SOL NEB ONE (22:00)
[2025-03-12 22:14] LABS: Base Excess 3.3 mmol/L (-2.0-3.0)
[2025-03-12] MEDS: FUROSEMIDE 40 MG/4 ML VIAL IV ONE (22:23)
[2025-03-12] MEDS: methylPREDNISolone SOD SUCC 40 MG/ML VL IV ONE (22:24)
[2025-03-12 23:57] LABS: INR 1.06 (0.9-1.15); Partial Thromboplastin Time 51.8 SEC (24.5-34.5); Prothrombin Time 11.2 sec (9.3-11.8)
[2025-03-13] VITALS (14 sets, daily range): BP systolic 114–146; BP diastolic 55–90; PULSE 66–97; RESP 17–26; TEMP 97.5–98.1; O2SAT 91–100
[2025-03-13 06:00] LABS: Hemoglobin 10.9 g/dL (13.5-17.5); Nucleated Red Blood Cells % 0.1 %
[2025-03-13 06:02] LABS: Hematocrit 35.7 % (41.0-53.0); Mean Corpuscular Hemoglobin 22.1 pg (28.0-32.0); Mean Corpuscular Volume 72.0 fL (80.0-100.0)
[2025-03-13 06:22] LABS: INR 1.06 (0.9-1.15); Partial Thromboplastin Time 51.4 SEC (24.5-34.5); Prothrombin Time 11.2 sec (9.3-11.8)
[2025-03-13 06:26] LABS: Alanine Aminotransferase 19 U/L (7-40); Albumin 3.9 g/dL (3.2-4.8); Alkaline Phosphatase 70 U/L (46-116); Anion Gap 13 (5-15); BUN/Creatinine Ratio 14.3 (10.0-20.0); Blood Urea Nitrogen 10 mg/dL (9-23); Calcium 9.3 mg/dL (8.7-10.4); Carbon Dioxide 29 mmol/L (20-31); Sodium 139 mmol/L (136-145); Total Protein 7.6 g/dL (5.7-8.2)
[2025-03-13 06:27] LABS: Chloride 97 mmol/L (98-107); Glucose 149 mg/dL (74-106); Potassium 3.1 mmol/L (3.5-5.1)
[2025-03-13 06:28] LABS: Bilirubin, Total < 0.2 mg/dL (0.2-1.0)
--- NOTE | 2025-03-13 06:36 | DVH ---
CHEST RADIOGRAPH Indication: SOB Technique: Single frontal view of the chest was obtained COMPARISON: XY CHEST PORTABLE on DOS: 03/08/25 FINDINGS: Lines and Tubes: Right peripherally inserted central catheter unchanged. Lungs: No evidence of focal consolidation. Stable chronic appearing bilateral interstitial pulmonary markings. Pleura: No effusion. No pneumothorax. Cardiomediastinal contours: Unremarkable Bones: Unremarkable IMPRESSION: 1. No acute disease. Chronic appearing bilateral interstitial pulmonary markings. 2. Right PICC.
[2025-03-13] MEDS: POTASSIUM EFFERVESENT TAB 25 MEQ PO ONE ×2 (09:26→17:05)
[2025-03-13] MEDS ORDERED: ENOXAPARIN SOD 100 MG/1 ML SYRINGE SC SCH (10:00)
[2025-03-13] MEDS: POTASSIUM CHL 20 Meq TABLET PO ONE (10:45)
[2025-03-13] MEDS ORDERED: ALBUTEROL SULF 2.5 MG/0.5ML(0.5%) NEB SOLN NEB SCH (11:15)
[2025-03-13] MEDS ORDERED: IPRATROPIUM BROM 0.5 MG/2.5ML INH SOL NEB SCH (11:15)
[2025-03-13] MEDS: diphenhdrAMINE HCL 50 MG/1 ML VL IV ONE (11:32)
[2025-03-13] MEDS: FUROSEMIDE 40 MG/4 ML VIAL IV ONE (11:33)
[2025-03-13] MEDS: MAGNESIUM SULFATE 1GM/100ML 100 ML IV SCH (11:42)
[2025-03-13 13:28] LABS: Base Excess 9.8 mmol/L (-2.0-3.0)
--- NOTE | 2025-03-13 15:30 | DVHPNRES ---
Progress Note Date Seen: Mar 13, 2025 Resident Creating Document: NANCY KUMAR RESIDENT Medical Necessity Reason Pt with a Central, PICC or Fol: Yes The following are medically ne: Miller Catheter Subjective Review of Systems 4-year-old male, Daniel Jones with past medical history of AFib, hypertension, DM, COPD ( On home oxygen 3 L via nasal cannula), came to the emergency department yesterday with complaints of acute abdominal pain the epigastric region. He rates the pain as 10 x 10 in intensity, nonradiating, no aggravating or relieving factors. It was associated with nausea, but no vomiting, fever, chills, Chest pain. Patient also reports of progressive shortness of breath in the past few days associated with productive cough and green phlegm. PMH: AFib, hypertension, COPD, DM PSH: Bariatric surgery( gastrojejunostomy), cholecystectomy, right knee total replacement, 5 spinal laminectomies, Family history: Noncontributory Home medication: Xarelto, Trelegy, Jardiance, lisinopril, metformin, metoprolol, exheltro, gabapentin, ferrous sulphate, oxycodone, hydrochlorothiazide, chlorthalidine, cyclobenapine, zrytec, tramadol (occasionally) Social history: Lives with his uncle, denies smoking currently but used to smoke a couple of packs per day left 15 years ago, alcohol, drugs. Allergies: Statin ROS: Patient seen and examined in the bedside. overnight events reviewed. Patient was confused yesterday night and reports feeling anxious. He says he has difficulty in breathing. The abdominal pain has decreased and is 5/ 10 in intensity. Rest of the ROS is negative Objective vital signs Vital Sign Date Time Temp Pulse Resp B/P (MAP) Pulse Ox O2 Delivery O2 Flow Rate FiO2 03/13/25 14:24 77 18 119/67 03/13/25 12:45 97.6 92 97.6 03/13/25 11:40 Facial BiPAP Mask 40 03/13/25 10:00 4 Total Intake and Output 03/12/25 03/12/25 03/13/25 15:00 23:00 07:00 Intake Total 100 ml 1300 ml 880 ml Output Total 1300 ml 3040 ml Balance 100 ml 0 ml -2160 ml medications Current Medications Medications Dose Ordered Sig/Manoj Route Start Time Stop Time Status Last Admin Dose Admin Empaglifozin 10 mg DAILY PO 03/09/25 10:00 03/13/25 09:27 10 MG Metoprolol Succinate 50 mg DAILY PO 03/09/25 10:00 03/13/25 09:29 50 MG Lisinopril 20 mg DAILY PO 03/09/25 10:00 03/13/25 09:28 20 MG Diagnostic Test (Pha) 1 strip ACHS 03/08/25 22:00 03/13/25 11:34 1 STRIP Insulin Human Regular ACHS SC 03/08/25 22:00 03/13/25 11:42 3 UNITS Dextrose 50 ml UD PRN IV 03/08/25 20:15 Doxycycline Hyclate 100 ml @ 50 mls/hr Q12HR IV 03/09/25 10:00 03/13/25 09:26 50 MLS/HR Insulin Glargine 10 units HS SC 03/09/25 22:00 03/13/25 00:37 10 UNITS Piperacillin Sod/ Tazobactam Sod 100 ml @ 25 mls/hr Q8H IV 03/10/25 20:00 03/13/25 11:42 25 MLS/HR Enoxaparin Sodium 210 mg Q12HR SC 03/13/25 10:00 UNV Enoxaparin Sodium 150 mg Q12HR SC 03/13/25 22:00 Furosemide 40 mg BIDD IV 03/13/25 18:00 Albuterol 2.5 mg Q4HWA [facility] 03/13/25 18:00 UNV Ipratropium [place] 0.5 mg Q4HWA [facility] 03/13/25 18:00 UNV Acetaminophen/ Hydrocodone Bitart 1 tab Q4HPRN PRN PO 03/13/25 14:45 UNV Melatonin 5 mg HS PO 03/13/25 22:00 UNV Morphine Sulfate 1 mg Q4HPRN PRN IV 03/13/25 14:45 UNV Pantoprazole Sodium 40 mg DAILY IV 03/14/25 10:00 UNV Hydroxyzine [place]ate 25 mg Q6HP PRN PO 03/13/25 14:45 UNV Insulin Glargine 5 units QAM SC 03/14/25 07:00 UNV Examination Pt is lying on bed General Appearance: Alert, Oriented X3, Cooperative, Not in acute distress. HEENT: Atraumatic, Mucous membranes moist/pink, on oxygen 5L via nasal cannula Respiratory: Presence of crackles and rhonchi all over bilateral lung [place] Cardiovascular: Regular rate, Normal S1, Normal S2, No murmurs Abdominal: Active bowel sounds, Soft, no distention, sterile bandage and small catheter placed in drainage site with minimal fluid in the drainage bottle Extremities: No edema, Normal pulses, No tenderness/swelling Skin: No Significant rash, except past surgical scars Neuro: Normal speech, sensorimotor deficits none Psych/Mental Status: Mental status NL, Mood NL Nurse was there as play back operator during examination laboratory and microbiology Laboratory Tests 03/13/25 05:02 Test 03/13/25 05:02 Range/Units Serum Glucose 149 H 74-106 mg/dL Microbiology Date/Time Source Procedure Growth Status 03/12/25 11:15 Aspirate Gram Stain - Final Resulted 03/12/25 11:15 Aspirate Body Fluid Culture - Preliminary Resulted 03/09/25 17:55 Nose MRSA Screen - Final Complete Labs and/or images reviewed: Labs reviewed by me, Image(s) reviewed by me Problem List/Assessment/Plan Problem List/Assessment/Plan #Acute hypercapnic & hypoxia due to respiratory failure likely due to COPD -ABG report shows respiratory acidosis ( pH: 7.2, CO2: 65.9) -Patient counseled about the need of CPAP/ BiPAP which he initially refused, patient counseled thoroughly about the need of BiPAP and CO2 retention, its effect and even possible intubation. He has now agreed on using it -Lasix 40 mg b.i.d. -breathing treatments as needed -CXr #Acute Gram-positive or Gram-negative bacterial pneumonia #Pleural effusions: small left and tiny right as seen below on CT -Chest x-ray shows Low lung volumes broncho vascular crowding and bibasilar atelectasis. -Abdomen and pelvis CT shows: Pulmonary ground-glass opacities which can be secondary to infection, hypoventilation, inflammatory etiologies Bibasilar pulmonary atelectasis and developing left lower lobe consolidation. -Flu and COVID test negative -Breathing treatment ordered -Zosyn and doxycycline -respiratory cultures and blood cultures pending # splenic abscess s/p drainage # Ileus versus obstruction ruled out -Zosyn -Evident on CT abdomen pelvis with contrast showed Rim-enhancing lesion in the lateral aspect of the spleen with local mass effect measuring 8.3 x 2.9 x 10.7 cm, concerning for abscess. -Surgery consulted, advised percutaneous drainage by IR, performed yesterday -Patient resume normal diabetic diet # AFib without RVR secondary hypercoagulable state -discontinue heparin and switch to do therapeutic Lovenox -monitor Coag profile #Hypokalemia(3.4) -Repleting potassium #Uncontrolled DM -Insulin on sliding scale placed -Hb1Ac order next # [id number]/ Lumbosacral iliac degenerate disease, Lumbar degenerative disc disease facet hypertrophic changes -outpatient follow-up -PT evaluation for weakness ordered GI prophylaxis: Protonix DVT prophylaxis: Lovenox Diet: low-salt diet, diabetic diet Goals of care discussed with the patient for more than 27 minutes: Full code status Case discussed with Dr. Hoff, patient and nurse. Plan discussed with: Patient, Other (rn) Dietary Evaluation Review Comments: 1) Glucerna 240ml BID 2) Johnnie 1 pk BID, VitC 500mg BID, MVI 1 tab daily, Zinc sulfate 220mg BID x 10 days 3) Advance diet to CCHO 75gm + 2gm Na diet 4) Refer [employer] on DC Expected Outcomes/Goals: To meet >75% estimated needs Fu 3-5 days Date of Service: Mar 13, 2025 Billing Provider: SALVADOR HOFF MD Common Visit Codes: [id number] INP/OBS CARE(HIGH) NANCY KUMAR RESIDENT Mar 13, 2025 15:30 OLIVIA CLANCY RESIDENT Mar 13, 2025 16:43 SALVADOR HOFF MD Mar 13, 2025 23:40
[2025-03-13] MEDS: MORPHINE SULFATE INJ 2 MG/ml SYRG IV PRN (16:54)
[2025-03-13] MEDS: hydrOXYzine 25 MG TAB or CAP PO PRN (16:54)
[2025-03-13] MEDS: FUROSEMIDE 40 MG/4 ML VIAL IV SCH (17:05)
[2025-03-13] MEDS: IPRATROPIUM BROM 0.5 MG/2.5ML INH SOL NEB SCH (18:37)
[2025-03-13] MEDS: ALBUTEROL SULF 2.5 MG/0.5ML(0.5%) NEB SOLN NEB SCH (18:37)
[2025-03-13] MEDS: HYDROcodone-ACET 5/325MG TAB PO PRN (20:45)
[2025-03-13] MEDS: MELATONIN 5 MG TAB PO SCH (21:33)
[2025-03-13] MEDS: ENOXAPARIN SOD 150 MG/1 ML SYRINGE SC SCH (21:34)
[2025-03-13] MEDS ORDERED: MELATONIN 5 MG TAB PO SCH (22:00)
[2025-03-14] VITALS (19 sets, daily range): BP systolic 101–149; BP diastolic 53–88; PULSE 50–100; RESP 16–20; TEMP 97.6–98.3; O2SAT 93–100
[2025-03-14] MEDS: INSULIN LANTUS (GLARGINE) 1 /0.01ml (100units/ml) SC SCH (06:02)
[2025-03-14 07:07] LABS: Hematocrit 35.9 % (41.0-53.0); Hemoglobin 11.0 g/dL (13.5-17.5); Mean Corpuscular Hemoglobin 22.0 pg (28.0-32.0); Mean Corpuscular Volume 71.6 fL (80.0-100.0); Nucleated Red Blood Cells % 0.0 %
[2025-03-14 07:17] LABS: Alanine Aminotransferase 17 U/L (7-40); Albumin 3.8 g/dL (3.2-4.8); Alkaline Phosphatase 62 U/L (46-116); Anion Gap 8 (5-15); BUN/Creatinine Ratio 21.3 (10.0-20.0); Blood Urea Nitrogen 16 mg/dL (9-23); Calcium 10.1 mg/dL (8.7-10.4); Sodium 138 mmol/L (136-145); Total Protein 7.3 g/dL (5.7-8.2)
[2025-03-14 07:19] LABS: Bilirubin, Total 0.2 mg/dL (0.2-1.0); Carbon Dioxide 37 mmol/L (20-31); Chloride 93 mmol/L (98-107); Glucose 139 mg/dL (74-106); Potassium 2.8 mmol/L (3.5-5.1)
--- NOTE | 2025-03-14 07:43 | ECG ---
[facility] Test Date: 2025-03-12 Test Time: 00:20:02 Pat Name: STEPHEN MARRERO Department: Room: [facility] Gender: M Roving Changer: hj : 1950 Requested By: ISIAH DAI Order Number: [id number] Reading MD: Twan Grullon Measurements Intervals [place] Rate: 73 P: 114 KS: 285 QRS: -74 QRSD: 168 T: 34 QT: 485 QTc: 535 Interpretive Statements Sinus rhythm Prolonged [place] interval RBBB and LAFB Baseline wander in lead(s) V2 Electronically Signed On 03-15-2025 19:16:17 PDT by Twan Grullon Please click the below link to view image of tracing.
[2025-03-14] MEDS: POTASSIUM CHL 20MEQ/100ML 100 ML IV SCH (10:45)
[2025-03-14] MEDS: PANTOPRAZOLE 40 MG/10 ML VIAL INJ IV SCH (11:03)
[2025-03-14] MEDS: methylPREDNISolone SOD SUCC 40 MG/ML VL IV ONE (13:08)
[2025-03-14] MEDS: ONDANSETRON ODT 4 MG TAB PO PRN (15:30)
[2025-03-14] MEDS: POTASSIUM EFFERVESENT TAB 25 MEQ PO ONE (15:32)
--- NOTE | 2025-03-14 16:11 | DVHPNRES ---
Progress Note Date Seen: Mar 14, 2025 Resident Creating Document: NANCY KUMAR RESIDENT Medical Necessity Reason Pt with a Central, PICC or Fol: Yes The following are medically ne: Miller Catheter Subjective Review of Systems 74-year-old male, Daniel Jones with past medical history of AFib, hypertension, DM, COPD ( On home oxygen 3 L via nasal cannula), came to the emergency department yesterday with complaints of acute abdominal pain the epigastric region. He rates the pain as 10 x 10 in intensity, nonradiating, no aggravating or relieving factors. It was associated with nausea, but no vomiting, fever, chills, Chest pain. Patient also reports of progressive shortness of breath in the past few days associated with productive cough and green phlegm. PMH: AFib, hypertension, COPD, DM PSH: Bariatric surgery( gastrojejunostomy), cholecystectomy, right knee total replacement, 5 spinal laminectomies, Family history: Noncontributory Home medication: Xarelto, Trelegy, Jardiance, lisinopril, metformin, metoprolol, exheltro, gabapentin, ferrous sulphate, oxycodone, hydrochlorothiazide, chlorthalidine, cyclobenapine, zrytec, tramadol (occasionally) Social history: Lives with his uncle, denies smoking currently but used to smoke a couple of packs per day left 15 years ago, alcohol, drugs. Allergies: Statin ROS: Patient seen and examined in the bedside. Overnight events reviewed. Patient reports not having used BiPAP machine yesterday as he reports not getting pain medication. Despite us explaining him the risks and benefits of BiPAP patient did not use it but he has agreed to using it today. Rest of the ROS is negative Objective vital signs Vital Sign Date Time Temp Pulse Resp B/P (MAP) Pulse Ox O2 Delivery O2 Flow Rate FiO2 03/14/25 14:44 94 Nasal Cannula 4.0 03/14/25 14:44 36 03/14/25 13:39 85 19 126/73 03/14/25 08:33 98.3 98.3 Total Intake and Output 03/13/25 03/13/25 03/14/25 15:00 23:00 07:00 Intake Total 540 ml 1600 ml 1134 ml Output Total 1300 ml 1225 ml Balance 540 ml 300 ml -91 ml medications Current Medications Medications Dose Ordered Sig/Manoj Route Start Time Stop Time Status Last Admin Dose Admin Empaglifozin 10 mg DAILY PO 03/09/25 10:00 03/14/25 11:00 10 MG Metoprolol Succinate 50 mg DAILY PO 03/09/25 10:00 03/13/25 09:29 50 MG Lisinopril 20 mg DAILY PO 03/09/25 10:00 03/13/25 09:28 20 MG Diagnostic Test (Pha) 1 strip ACHS 03/08/25 22:00 03/14/25 15:46 1 STRIP Insulin Human Regular ACHS SC 03/08/25 22:00 03/14/25 06:01 2 UNITS Dextrose 50 ml UD PRN IV 03/08/25 20:15 Doxycycline Hyclate 100 ml @ 50 mls/hr Q12HR IV 03/09/25 10:00 03/14/25 11:26 50 MLS/HR Insulin Glargine 10 units HS SC 03/09/25 22:00 03/13/25 21:54 10 UNITS Piperacillin Sod/ Tazobactam Sod 100 ml @ 25 mls/hr Q8H IV 03/10/25 20:00 03/14/25 13:49 25 MLS/HR Enoxaparin Sodium 210 mg Q12HR SC 03/13/25 10:00 UNV Furosemide 40 mg BIDD IV 03/13/25 18:00 03/14/25 05:50 40 MG Albuterol 2.5 mg Q4HWA [facility] 03/13/25 18:00 03/14/25 09:43 2.5 MG Ipratropium [place] 0.5 mg Q4HWA [facility] 03/13/25 18:00 03/14/25 09:43 0.5 MG Acetaminophen/ Hydrocodone Bitart 1 tab Q4HPRN PRN PO 03/13/25 14:45 03/14/25 15:30 1 TAB Melatonin 5 mg HS PO 03/13/25 22:00 Morphine Sulfate 1 mg Q4HPRN PRN IV 03/13/25 14:45 03/14/25 13:09 1 MG Pantoprazole Sodium 40 mg DAILY IV 03/14/25 10:00 03/14/25 11:03 40 MG Hydroxyzine Pamoate 25 mg Q6HP PRN PO 03/13/25 14:45 03/14/25 13:08 25 MG Insulin Glargine 5 units QAM SC 03/14/25 07:00 03/14/25 06:02 5 UNITS Methylprednisolone Sodium Succinate 40 mg BID IV 03/14/25 22:00 Enoxaparin Sodium 100 mg Q12HR SC 03/14/25 22:00 Ondansetron HCl 4 mg Q6HP PRN PO 03/14/25 15:15 03/14/25 15:30 4 MG Examination Pt is lying on bed General Appearance: Alert, Oriented X3, Cooperative, Not in acute distress. HEENT: Atraumatic, Mucous membranes moist/pink, on oxygen 5L via nasal cannula Respiratory: Presence of coarse crackles and rhonchi all over bilateral lung farley Cardiovascular: Regular rate, Normal S1, Normal S2, No murmurs Abdominal: Active bowel sounds, Soft, no distention, sterile bandage and small catheter placed in drainage site with minimal fluid in the drainage bottle Extremities: No edema, Normal pulses, No tenderness/swelling Skin: No Significant rash, except past surgical scars Neuro: Normal speech, sensorimotor deficits none Psych/Mental Status: Mental status NL, Mood NL Nurse was there as fax machine repairer during examination laboratory and microbiology Laboratory Tests 03/14/25 06:25 Test 03/14/25 06:25 Range/Units Serum Glucose 139 H 74-106 mg/dL Microbiology Date/Time Source Procedure Growth Status 03/12/25 11:15 Aspirate Gram Stain - Final Resulted 03/12/25 11:15 Aspirate Body Fluid Culture - Preliminary Resulted 03/09/25 17:55 Nose MRSA Screen - Final Complete Labs and/or images reviewed: Labs reviewed by me, Image(s) reviewed by me (rn) Problem List/Assessment/Plan Problem List/Assessment/Plan #Acute hypercapnic & hypoxia due to respiratory failure likely due to COPD -ABG report shows respiratory acidosis ( pH: 7.2, CO2: 65.9) -Patient counseled about the need of CPAP/ BiPAP for CO2 retention, its effect and even possible intubation. He has now agreed on using it -Lasix 40 mg b.i.d. -Breathing treatments as needed -CXR:No acute disease. Chronic appearing bilateral interstitial pulmonary markings. -Solu-Medrol added #Acute Gram-positive or Gram-negative bacterial pneumonia #Pleural effusions: small left and tiny right as seen below on CT -Chest x-ray shows Low lung volumes broncho vascular crowding and bibasilar atelectasis. -Abdomen and pelvis CT shows: Pulmonary ground-glass opacities which can be secondary to infection, hypoventilation, inflammatory etiologies Bibasilar pulmonary atelectasis and developing left lower lobe consolidation. -Flu and COVID test negative -Breathing treatment ordered -Zosyn and doxycycline -Respiratory cultures and blood cultures pending # Splenic abscess s/p drainage # Ileus versus obstruction ruled out -Zosyn -Evident on CT abdomen pelvis with contrast showed Rim-enhancing lesion in the lateral aspect of the spleen with local mass effect measuring 8.3 x 2.9 x 10.7 cm, concerning for abscess. -Surgery consulted, advised percutaneous drainage by IR, performed yesterday -Patient resume normal diabetic diet # AFib without RVR secondary hypercoagulable state -discontinue heparin and switch to do therapeutic Lovenox -monitor Coag profile #Hypokalemia(3.4) -Repleting potassium #Uncontrolled DM -Insulin on sliding scale placed -Hb1Ac order next # [id number]/ Lumbosacral iliac degenerate disease, Lumbar degenerative disc disease facet hypertrophic changes -outpatient follow-up -PT evaluation for weakness ordered GI prophylaxis: Protonix DVT prophylaxis: Lovenox Diet: low-salt diet, diabetic diet Goals of care discussed with the patient for more than 27 minutes: Full code status Case discussed with Dr. Hoff, patient and nurse. Plan discussed with: Patient Dietary Evaluation Review Comments: 1) Glucerna 240ml BID 2) Johnnie 1 pk BID, VitC 500mg BID, MVI 1 tab daily, Zinc sulfate 220mg BID x 10 days 3) Advance diet to CCHO 75gm + 2gm Na diet 4) Refer Seal Delivery Vehicle Team Technician on DC Expected Outcomes/Goals: To meet >75% estimated needs Fu 3-5 days Date of Service: Mar 14, 2025 Billing Provider: SALVADOR HOFF MD Common Visit Codes: [id number] INP/OBS CARE(HIGH) NANCY KUMAR RESIDENT Mar 14, 2025 16:11 SALVADOR HOFF MD Mar 14, 2025 23:19
[2025-03-14] MEDS: POTASSIUM CHL 20MEQ/100ML 100 ML IV ONE (20:04)
[2025-03-14] MEDS: methylPREDNISolone SOD SUCC 125 MG/2 ML VL IV SCH (21:44)
[2025-03-14] MEDS: ENOXAPARIN SOD 100 MG/1 ML SYRINGE SC SCH (21:45)
[2025-03-14] MEDS ORDERED: methylPREDNISolone SOD SUCC 40 MG/ML VL IV SCH (22:00)
[2025-03-15] VITALS (12 sets, daily range): BP systolic 116–149; BP diastolic 66–87; PULSE 62–106; RESP 17–20; TEMP 97.9–98.7; O2SAT 92–100
[2025-03-15 06:04] LABS: Alanine Aminotransferase 16 U/L (7-40); Alkaline Phosphatase 60 U/L (46-116); Anion Gap 9 (5-15); BUN/Creatinine Ratio 21.4 (10.0-20.0); Blood Urea Nitrogen 15 mg/dL (9-23); Calcium 10.0 mg/dL (8.7-10.4); Potassium 4.0 mmol/L (3.5-5.1); Sodium 137 mmol/L (136-145); Total Protein 7.2 g/dL (5.7-8.2)
[2025-03-15 06:05] LABS: Albumin 3.8 g/dL (3.2-4.8)
[2025-03-15 06:07] LABS: Hematocrit 33.9 % (41.0-53.0); Hemoglobin 10.6 g/dL (13.5-17.5); Mean Corpuscular Hemoglobin 22.5 pg (28.0-32.0); Mean Corpuscular Volume 72.1 fL (80.0-100.0); Nucleated Red Blood Cells % 0.0 %
[2025-03-15 06:14] LABS: Bilirubin, Total 0.2 mg/dL (0.2-1.0); Carbon Dioxide 32 mmol/L (20-31); Chloride 96 mmol/L (98-107); Glucose 155 mg/dL (74-106)
--- NOTE | 2025-03-15 08:41 | DVHPNRES ---
Progress Note Date Seen: Mar 15, 2025 Resident Creating Document: NANCY KUMAR RESIDENT Medical Necessity Reason Pt with a Central, PICC or Fol: Yes The following are medically ne: Miller Catheter Subjective Review of Systems 74-year-old male, Daniel Jones with past medical history of AFib, hypertension, DM, COPD ( On home oxygen 3 L via nasal cannula), came to the emergency department yesterday with complaints of acute abdominal pain the epigastric region. He rates the pain as 10 x 10 in intensity, nonradiating, no aggravating or relieving factors. It was associated with nausea, but no vomiting, fever, chills, Chest pain. Patient also reports of progressive shortness of breath in the past few days associated with productive cough and green phlegm. PMH: AFib, hypertension, COPD, DM PSH: Bariatric surgery( gastrojejunostomy), cholecystectomy, right knee total replacement, 5 spinal laminectomies, Family history: Noncontributory Home medication: Xarelto, Trelegy, Jardiance, lisinopril, metformin, metoprolol, exheltro, gabapentin, ferrous sulphate, oxycodone, hydrochlorothiazide, chlorthalidine, cyclobenapine, zrytec, tramadol (occasionally) Social history: Lives with his uncle, denies smoking currently but used to smoke a couple of packs per day left 15 years ago, alcohol, drugs. Allergies: Statin ROS: Patient seen and examined in the bedside. Overnight events reviewed. Patient reports taking CPAP/BIPAP machine 1 hour yesterday and reports feeling much better than before. He says his SOB has decreased and his anxiety has lessened. Rest of the ROS is negative Objective vital signs Vital Sign Date Time Temp Pulse Resp B/P (MAP) Pulse Ox O2 Delivery O2 Flow Rate FiO2 03/15/25 06:10 149/87 03/15/25 06:09 88 20 100 03/15/25 06:01 Nasal Cannula* 5 40 03/15/25 05:00 97.9 97.9 Total Intake and Output 03/14/25 03/14/25 03/15/25 15:00 23:00 07:00 Intake Total 1380 ml 1020 ml Output Total 700 ml 3300 ml Balance 680 ml -2280 ml medications Current Medications Medications Dose Ordered Sig/Manoj Route Start Time Stop Time Status Last Admin Dose Admin Empaglifozin 10 mg DAILY PO 03/09/25 10:00 03/14/25 11:00 10 MG Metoprolol Succinate 50 mg DAILY PO 03/09/25 10:00 03/13/25 09:29 50 MG Lisinopril 20 mg DAILY PO 03/09/25 10:00 03/13/25 09:28 20 MG Diagnostic Test (Pha) 1 strip ACHS 03/08/25 22:00 03/14/25 20:05 1 STRIP Insulin Human Regular ACHS SC 03/08/25 22:00 03/15/25 06:26 3 UNITS Dextrose 50 ml UD PRN IV 03/08/25 20:15 Doxycycline Hyclate 100 ml @ 50 mls/hr Q12HR IV 03/09/25 10:00 03/15/25 00:56 50 MLS/HR Insulin Glargine 10 units HS SC 03/09/25 22:00 03/14/25 22:11 10 UNITS Piperacillin Sod/ Tazobactam Sod 100 ml @ 25 mls/hr Q8H IV 03/10/25 20:00 03/15/25 04:13 25 MLS/HR Enoxaparin Sodium 210 mg Q12HR SC 03/13/25 10:00 UNV Furosemide 40 mg BIDD IV 03/13/25 18:00 03/15/25 06:10 40 MG Albuterol 2.5 mg Q4HWA [facility] 03/13/25 18:00 03/15/25 06:00 2.5 MG Ipratropium [place] 0.5 mg Q4HWA [facility] 03/13/25 18:00 03/15/25 06:00 0.5 MG Acetaminophen/ Hydrocodone Bitart 1 tab Q4HPRN PRN PO 03/13/25 14:45 03/15/25 06:02 1 TAB Melatonin 5 mg HS PO 03/13/25 22:00 03/14/25 21:44 5 MG Morphine Sulfate 1 mg Q4HPRN PRN IV 03/13/25 14:45 03/14/25 18:33 1 MG Pantoprazole Sodium 40 mg DAILY IV 03/14/25 10:00 03/14/25 11:03 40 MG Hydroxyzine Pamoate 25 mg Q6HP PRN PO 03/13/25 14:45 03/15/25 04:35 25 MG Insulin Glargine 5 units QAM SC 03/14/25 07:00 03/15/25 06:24 5 UNITS Methylprednisolone Sodium Succinate 40 mg BID IV 03/14/25 22:00 Cancel Enoxaparin Sodium 100 mg Q12HR SC 03/14/25 22:00 03/14/25 21:45 100 MG Ondansetron HCl 4 mg Q6HP PRN PO 03/14/25 15:15 03/15/25 02:02 4 MG Methylprednisolone Sodium Succinate 60 mg BID IV 03/14/25 22:00 03/14/25 21:44 60 MG Examination Pt is lying on bed General Appearance: Alert, Oriented X3, Cooperative, Not in acute distress. HEENT: Atraumatic, Mucous membranes moist/pink, on oxygen 5L via nasal cannula Respiratory: Presence of coarse crackles and rhonchi all over bilateral lung farley Cardiovascular: Regular rate, Normal S1, Normal S2, No murmurs Abdominal: Active bowel sounds, Soft, no distention, sterile bandage and small catheter placed in drainage site with minimal fluid in the drainage bottle Extremities: No edema, Normal pulses, No tenderness/swelling Skin: No Significant rash, except past surgical scars Neuro: Normal speech, sensorimotor deficits none Psych/Mental Status: Mental status NL, Mood NL Nurse was there as plastic sheeting cutter during examination laboratory and microbiology Laboratory Tests 03/15/25 05:12 Test 03/15/25 05:12 Range/Units Serum Glucose 155 H 74-106 mg/dL Microbiology Date/Time Source Procedure Growth Status 03/12/25 11:15 Aspirate Gram Stain - Final Resulted 03/12/25 11:15 Aspirate Body Fluid Culture - Preliminary Resulted 03/09/25 17:55 Nose MRSA Screen - Final Complete Labs and/or images reviewed: Labs reviewed by me, Image(s) reviewed by me Problem List/Assessment/Plan Problem List/Assessment/Plan #Acute hypercapnic & hypoxia due to respiratory failure likely due to COPD- improving -ABG report showed respiratory acidosis ( pH: 7.2, CO2: 65.9) -CPAP/ BiPAP for CO2 retention -Lasix 40 mg b.i.d. -Breathing treatments as needed -CXR:No acute disease. Chronic appearing bilateral interstitial pulmonary markings. -Solu-Medrol 40 mg added #Acute Gram-positive or Gram-negative bacterial pneumonia-improving #Pleural effusions: small left and tiny right as seen below on CT -Chest x-ray shows Low lung volumes broncho vascular crowding and bibasilar atelectasis. -Abdomen and pelvis CT shows: Pulmonary ground-glass opacities which can be secondary to infection, hypoventilation, inflammatory etiologies Bibasilar pulmonary atelectasis and developing left lower lobe consolidation. -Flu and COVID test negative -Breathing treatment ordered -Zosyn and doxycycline -Respiratory cultures and blood cultures pending # Splenic abscess s/p drainage # Ileus versus obstruction ruled out -Zosyn 4mg Q6HP P.R.N -Evident on CT abdomen pelvis with contrast showed Rim-enhancing lesion in the lateral aspect of the spleen with local mass effect measuring 8.3 x 2.9 x 10.7 cm, concerning for abscess. -Surgery consulted, advised percutaneous drainage by IR, performed, pending cultures -Patient resume normal diabetic diet # AFib without RVR secondary hypercoagulable state -discontinue heparin and switch to do therapeutic Lovenox -monitor Coag profile #Hypokalemia-resolving -Repleted potassium, corrected #Uncontrolled DM-controlling now -Insulin on sliding scale placed -Hb1Ac order next # [id number]/ Lumbosacral iliac degenerate disease, Lumbar degenerative disc disease facet hypertrophic changes -outpatient follow-up -PT evaluation for weakness ordered GI prophylaxis: Protonix DVT prophylaxis: Lovenox Diet: low-salt diet, diabetic diet Goals of care discussed with the patient for more than 27 minutes: Full code status Case discussed with Dr. Hoff, patient and nurse. Goals of care discussed with the patient for more than 27 minutes: Full code status Case discussed with Dr. Hoff, patient and nurse. Plan discussed with: Patient, Other (RN) My Orders My Orders Orders - NANCY KUMAR RESIDENT Procedure Category Date Status Time Methylprednisolone PHA 03/14/25 In Process Sod Succ (Solu Medrol 22:00 Dietary Evaluation Review Comments: 1) Glucerna 240ml BID 2) Johnnie 1 pk BID, VitC 500mg BID, MVI 1 tab daily, Zinc sulfate 220mg BID x 10 days 3) Advance diet to CCHO 75gm + 2gm Na diet 4) Refer Manager Domestic on DC Expected Outcomes/Goals: To meet >75% estimated needs Fu 3-5 days Date of Service: Mar 15, 2025 Billing Provider: SALVADOR HOFF MD Common Visit Codes: [id number] INP/OBS CARE(HIGH) NANCY KUMAR RESIDENT Mar 15, 2025 08:41 OLIVIA CLANCY RESIDENT Mar 15, 2025 13:57 SALVADOR HOFF MD Mar 16, 2025 00:06
[2025-03-15] MEDS: WARFARIN SODIUM 1 MG TAB PO ONE (17:12)
[2025-03-15] MEDS: WARFARIN SODIUM 2 MG TAB PO ONE (17:12)
[2025-03-16] VITALS (17 sets, daily range): BP systolic 96–137; BP diastolic 70–97; PULSE 66–97; RESP 18–20; TEMP 98–98.7; O2SAT 92–100
[2025-03-16 07:26] LABS: Potassium 3.8 mmol/L (3.5-5.1); Sodium 137 mmol/L (136-145)
[2025-03-16 07:27] LABS: Anion Gap 9 (5-15); Calcium 9.4 mg/dL (8.7-10.4)
[2025-03-16 07:32] LABS: BUN/Creatinine Ratio 30.4 (10.0-20.0)
[2025-03-16 07:34] LABS: Hematocrit 35.6 % (41.0-53.0); Hemoglobin 10.9 g/dL (13.5-17.5); Mean Corpuscular Hemoglobin 21.8 pg (28.0-32.0); Mean Corpuscular Volume 71.3 fL (80.0-100.0); Nucleated Red Blood Cells % 0.2 %
[2025-03-16 07:35] LABS: Blood Urea Nitrogen 24 mg/dL (9-23); Carbon Dioxide 34 mmol/L (20-31); Chloride 94 mmol/L (98-107); Glucose 208 mg/dL (74-106)
[2025-03-16] MEDS: Ensure Enlive Strawberry 8oz Bottle PO SCH (08:00)
--- NOTE | 2025-03-16 09:39 | DVHPNRES ---
Progress Note Date Seen: Mar 16, 2025 Resident Creating Document: NANCY KUMAR RESIDENT Medical Necessity Reason Pt with a Central, PICC or Fol: Yes The following are medically ne: Miller Catheter Subjective Review of Systems 74-year-old male, Daniel Jones with past medical history of AFib, hypertension, DM, COPD ( On home oxygen 3 L via nasal cannula), came to the emergency department yesterday with complaints of acute abdominal pain the epigastric region. He rates the pain as 10 x 10 in intensity, nonradiating, no aggravating or relieving factors. It was associated with nausea, but no vomiting, fever, chills, Chest pain. Patient also reports of progressive shortness of breath in the past few days associated with productive cough and green phlegm. PMH: AFib, hypertension, COPD, DM PSH: Bariatric surgery( gastrojejunostomy), cholecystectomy, right knee total replacement, 5 spinal laminectomies, Family history: Noncontributory Home medication: Xarelto, Trelegy, Jardiance, lisinopril, metformin, metoprolol, exheltro, gabapentin, ferrous sulphate, oxycodone, hydrochlorothiazide, chlorthalidine, cyclobenapine, zrytec, tramadol (occasionally) Social history: Lives with his uncle, denies smoking currently but used to smoke a couple of packs per day left 15 years ago, alcohol, drugs. Allergies: Statin ROS: Patient seen and examined in the bedside. Overnight events reviewed. Patient reports taking CPAP/BIPAP machine 1 hour yesterday and reports feeling much better than before. He says his SOB has decreased and his anxiety has lessened. Rest of the ROS is negative Objective vital signs Vital Sign Date Time Temp Pulse Resp B/P (MAP) Pulse Ox O2 Delivery O2 Flow Rate FiO2 03/16/25 06:12 129/80 03/16/25 05:15 74 19 03/16/25 05:00 98.0 97 98.0 03/15/25 20:00 Nasal Cannula* 4 36 Total Intake and Output 03/15/25 03/15/25 03/16/25 15:00 23:00 07:00 Intake Total 200 ml 950 ml 1500 ml Output Total 1800 ml 1950 ml Balance 200 ml -850 ml -450 ml medications Current Medications Medications Dose Ordered Sig/Manoj Route Start Time Stop Time Status Last Admin Dose Admin Empaglifozin 10 mg DAILY PO 03/09/25 10:00 03/15/25 09:31 10 MG Metoprolol Succinate 50 mg DAILY PO 03/09/25 10:00 03/15/25 09:46 50 MG Lisinopril 20 mg DAILY PO 03/09/25 10:00 03/15/25 09:34 20 MG Diagnostic Test (Pha) 1 strip ACHS 03/08/25 22:00 03/16/25 06:19 1 STRIP Insulin Human Regular ACHS SC 03/08/25 22:00 03/16/25 06:17 4 UNITS Dextrose 50 ml UD PRN IV 03/08/25 20:15 Doxycycline Hyclate 100 ml @ 50 mls/hr Q12HR IV 03/09/25 10:00 03/15/25 23:34 50 MLS/HR Insulin Glargine 10 units HS SC 03/09/25 22:00 03/15/25 22:44 10 UNITS Piperacillin Sod/ Tazobactam Sod 100 ml @ 25 mls/hr Q8H IV 03/10/25 20:00 03/16/25 04:27 25 MLS/HR Enoxaparin Sodium 210 mg Q12HR SC 03/13/25 10:00 UNV Furosemide 40 mg BIDD IV 03/13/25 18:00 03/16/25 06:12 40 MG Albuterol 2.5 mg Q4HWA [facility] 03/13/25 18:00 03/16/25 07:05 2.5 MG Ipratropium [place] 0.5 mg Q4HWA [facility] 03/13/25 18:00 03/16/25 07:05 0.5 MG Acetaminophen/ Hydrocodone Bitart 1 tab Q4HPRN PRN PO 03/13/25 14:45 03/16/25 02:21 1 TAB Melatonin 5 mg HS PO 03/13/25 22:00 03/15/25 22:19 5 MG Morphine Sulfate 1 mg Q4HPRN PRN IV 03/13/25 14:45 03/16/25 04:45 1 MG Pantoprazole Sodium 40 mg DAILY IV 03/14/25 10:00 03/15/25 09:31 40 MG Hydroxyzine Pamoate 25 mg Q6HP PRN PO 03/13/25 14:45 03/16/25 04:36 25 MG Insulin Glargine 5 units QAM SC 03/14/25 07:00 03/16/25 06:18 5 UNITS Methylprednisolone Sodium Succinate 40 mg BID IV 03/14/25 22:00 Cancel Enoxaparin Sodium 100 mg Q12HR SC 03/14/25 22:00 03/15/25 22:20 100 MG Ondansetron HCl 4 mg Q6HP PRN PO 03/14/25 15:15 03/16/25 02:23 4 MG Methylprednisolone Sodium Succinate 60 mg BID IV 03/14/25 22:00 03/15/25 22:19 60 MG Micafungin Sodium 100 mg/Sodium Chloride 100 ml @ 100 mls/hr DAILY IV 03/16/25 10:00 Enteral Nutritional Formula 240 ml TIDWM PO 03/16/25 08:00 Examination Pt is lying on bed General Appearance: Alert, Oriented X3, Cooperative, Not in acute distress. HEENT: Atraumatic, Mucous membranes moist/pink, on oxygen 5L via nasal cannula Respiratory: Presence of coarse crackles and rhonchi all over bilateral lung farley Cardiovascular: Regular rate, Normal S1, Normal S2, No murmurs Abdominal: Active bowel sounds, Soft, no distention, sterile bandage and small catheter placed in drainage site with minimal fluid in the drainage bottle Extremities: No edema, Normal pulses, No tenderness/swelling Skin: No Significant rash, except past surgical scars Neuro: Normal speech, sensorimotor deficits none Psych/Mental Status: Mental status NL, Mood NL Nurse was there as cloth framer during examination laboratory and microbiology Laboratory Tests 03/16/25 06:50 Test 03/16/25 06:50 Range/Units Serum Glucose 208 H 74-106 mg/dL Microbiology Date/Time Source Procedure Growth Status 03/12/25 11:15 Aspirate Gram Stain - Final Resulted 03/12/25 11:15 Body Fluid Culture - Preliminary Presumptive Delisa albicans Resulted 03/09/25 17:55 Nose MRSA Screen - Final Complete Labs and/or images reviewed: Labs reviewed by me, Image(s) reviewed by me Problem List/Assessment/Plan Problem List/Assessment/Plan #Acute hypercapnic & hypoxia due to respiratory failure likely due to COPD- improving -ABG report showed respiratory acidosis ( pH: 7.2, CO2: 65.9) -CPAP/ BiPAP for CO2 retention -Lasix 40 mg b.i.d. -Breathing treatments as needed -CXR:No acute disease. Chronic appearing bilateral interstitial pulmonary markings. -Solu-Medrol 40 mg added -echo ordered #Acute Gram-positive or Gram-negative bacterial pneumonia-improving #Pleural effusions: small left and tiny right as seen below on CT -Chest x-ray shows Low lung volumes broncho vascular crowding and bibasilar atelectasis. -Abdomen and pelvis CT shows: Pulmonary ground-glass opacities which can be secondary to infection, hypoventilation, inflammatory etiologies Bibasilar pulmonary atelectasis and developing left lower lobe consolidation. -Flu and COVID test negative -Breathing treatment ordered -Zosyn and doxycycline -Respiratory cultures and blood cultures pending -repeat blood culture # Splenic abscess s/p drainage # Ileus versus obstruction ruled out -Zosyn 4mg Q6HP P.R.N -Evident on CT abdomen pelvis with contrast showed Rim-enhancing lesion in the lateral aspect of the spleen with local mass effect measuring 8.3 x 2.9 x 10.7 cm, concerning for abscess. -Surgery consulted, advised percutaneous drainage by IR, performed, cultures prelim-Presumptive Delisa albicans, consulted ID and ordered new blood cultures -micofungin sodium 100mg -Patient resume normal diabetic diet -ID consult pending # AFib without RVR secondary hypercoagulable state -discontinue heparin and switch to do therapeutic Lovenox -monitor Coag profile -ordered echocardiogram #Hypokalemia-resolving -Repleted potassium, corrected #Uncontrolled DM-controlling now -Insulin on sliding scale placed -Hb1Ac order next # [id number]/ Lumbosacral iliac degenerate disease, Lumbar degenerative disc disease facet hypertrophic changes -outpatient follow-up -PT evaluation for weakness ordered GI prophylaxis: Protonix DVT prophylaxis: Lovenox Diet: low-salt diet, diabetic diet Goals of care discussed with the patient for more than 27 minutes: Full code status Case discussed with Dr. Hoff, patient and nurse. Goals of care discussed with the patient for more than 27 minutes: Full code status Case discussed with Dr. Hoff, patient and nurse. Plan discussed with: Patient, Other (rn) Dietary Evaluation Review Comments: 1) Glucerna 240ml BID 2) Johnnie 1 pk BID, VitC 500mg BID, MVI 1 tab daily, Zinc sulfate 220mg BID x 10 days 3) [facility] + 2gm Na diet 4) Refer Courtroom Deputy Or Calendar Clerk on DC Expected Outcomes/Goals: To meet >75% estimated needs Fu 3-5 days Date of Service: Mar 16, 2025 Billing Provider: SALVADOR HOFF MD Common Visit Codes: [id number] INP/OBS CARE(HIGH) NANCY KUMAR RESIDENT Mar 16, 2025 09:39 OLIVIA CLANCY RESIDENT Mar 16, 2025 15:17 SALVADOR HOFF MD Mar 16, 2025 22:24
[2025-03-16] MEDS: MICAFUNGIN SODIUM 100 MG in SODIUM CHL 0.9% 100 ML IV ONE (10:00)
[2025-03-16] MEDS: MICAFUNGIN SODIUM 100 MG in SODIUM CHL 0.9% 100 ML IV SCH (10:31)
--- NOTE | 2025-03-16 13:57 | DVHINCON2 ---
Date of service: Mar 16, 2025 Family History: Patient reports no known family medical history. Allergies: Coded Allergies: Statins (Verified Allergy, Severe, 03/08/25) Current Medications Current Medications Medications (Trade) Dose Ordered Sig/Manoj Route PRN Reason Start Time Stop Time Status Last Admin Micafungin Sodium 100 mg/Sodium Chloride 100 ml @ 100 mls/hr DAILY IV 03/16/25 10:00 03/16/25 10:31 Enteral Nutritional Formula (Ensure Enlive) 240 ml TIDWM PO 03/16/25 08:00 03/16/25 11:06 DC 03/16/25 08:00 Methylprednisolone Sodium Succinate (Solu Medrol) 40 mg DAILY IV 03/17/25 10:00 UNV Vital Signs Vital Signs Date Time Temp Pulse Resp B/P (MAP) Pulse Ox O2 Delivery O2 Flow Rate FiO2 03/16/25 10:34 81 20 99 03/16/25 10:26 Nasal Cannula 4.0 03/16/25 10:26 36 03/16/25 09:47 137/70 03/16/25 09:00 98.2 98.2 Labs/Diagnostic Data Labs Test 03/16/25 10:58 03/16/25 06:50 03/15/25 05:12 03/14/25 06:25 Range/Units POC Glucose 252 H 70-106 mg/dl White Blood Count 6.7 # 4.4-10.8 10^3/uL Red Blood Count 5.00 4.5-5.90 10^6/uL Hemoglobin 10.9 L 13.5-17.5 g/dL Hematocrit 35.6 L 41.0-53.0 % Mean Corpuscular Volume 71.3 L 80.0-100.0 fL Mean Corpuscular Hemoglobin 21.8 L 28.0-32.0 pg Mean Corpuscular Hemoglobin Concent 30.6 L 32.0-36.0 g/dL Red Cell Distribution Width 19.9 H 11.8-14.3 % Platelet Count 381 140-450 10^3/uL Mean Platelet Volume 6.8 L 6.9-10.8 fL Neutrophils (%) (Auto) 84.4 H 37.0-80.0 % Lymphocytes (%) (Auto) 11.2 10.0-50.0 % Monocytes (%) (Auto) 4.4 0.0-12.0 % Eosinophils (%) (Auto) 0.0 0.0-7.0 % Basophils (%) (Auto) 0.0 0.0-2.0 % Neutrophils # (Auto) 5.6 1.6-8.6 10 ^3/uL Lymphocytes # (Auto) 0.7 0.4-5.4 10 ^3/uL Monocytes # (Auto) 0.3 0-1.3 10 ^3/uL Eosinophils # (Auto) 0 0-0.8 10 ^3/uL Basophils # (Auto) 0 0-0.2 10 ^3/uL Nucleated Red Blood Cells 0.2 % Sodium Level 137 136-145 mmol/L Potassium Level 3.8 3.5-5.1 mmol/L Chloride Level 94 L 98-107 mmol/L Carbon Dioxide Level 34 H 20-31 mmol/L Anion Gap 9 5-15 Blood Urea Nitrogen 24 H 9-23 mg/dL Creatinine 0.79 0.700-1.30 mg/dL Glomerular Filtration Rate Calc 93 >90 mL/min BUN/Creatinine Ratio 30.4 H 10.0-20.0 Serum Glucose 208 H 74-106 mg/dL Calcium Level 9.4 8.7-10.4 mg/dL Total Bilirubin 0.2 0.2-1.0 mg/dL Aspartate Amino Transferase (AST) 18 13-40 U/L Alanine Aminotransferase (ALT) 16 7-40 U/L Alkaline Phosphatase 60 46-116 U/L Total Protein 7.2 5.7-8.2 g/dL Albumin 3.8 3.2-4.8 g/dL Magnesium Level 2.0 1.6-2.6 mg/dL B-Type Natriuretic Peptide 36.61 0-100 pg/mL Test 03/13/25 13:22 03/13/25 05:02 03/12/25 22:00 03/12/25 11:15 Range/Units Blood Gas Specimen Type Arterial Blood Gas Sample Site Right radial Blood Gas Patient Temperature 37.0 Arterial Blood Date Drawn [id number] Arterial Blood pH 7.433 7.350-7.450 Arterial Blood Partial Pressure CO2 54.7 H 35.0-48.0 mmHg Arterial Blood Partial Pressure O2 66.4 L 83.0-108.0 mmHg Arterial Blood HCO3 35.7 H 21.0-28.0 mmol/L Arterial Blood Oxygen Saturation 92.3 L 94.0-98.0 % Arterial Blood Base Excess 9.8 H -2.0-3.0 mmol/L Arterial Blood Oxyhemoglobin 91.6 L 94.0-98.0 % Arterial Blood Carboxyhemoglobin 0.5 0.5-1.5 % Arterial Blood Methemoglobin 0.3 0.0-1.5 % John Test Yes Blood Gas Total Hemoglobin 11.60 L 13.5-17.5 g/dL Blood Gas Liter Flow 4.00 Blood Gas Modality Nasal cannula FiO2 % 36.0 Prothrombin Time 11.2 9.3-11.8 sec Prothrombin Time INR 1.06 0.9-1.15 Activated Partial Thromboplast Time 51.4 H 24.5-34.5 SEC Blood Gas Critical Value Read Back Yes Blood Gas Notified Whom nathaniel Mahoney Blood Gas Notified Time [id number] Blood Gas Notified By Rtphuong Body Fluid Glucose 4 . mg/dL Test 03/10/25 06:10 03/09/25 17:55 03/09/25 05:07 03/08/25 21:21 Range/Units Lactic Acid Level 1.3 0.4-2.0 mmol/L Influenza Type A Antigen Negative Negative Influenza Type B Antigen Negative Negative SARS-CoV-2 Antigen (Rapid) Negative NEGATIVE Hemoglobin A1c 6.9 H <5.7 % A1C Urine Color Light-yellow Yellow Urine Clarity Clear Clear Urine pH 5.5 5.0-9.0 Urine Specific [place] 1.025 1.001-1.035 Urine Protein Trace H Negative Urine Ketones Negative Negative Urine Blood Negative Negative /uL Urine Nitrite Negative Negative Urine Bilirubin Negative Negative Urine Urobilinogen Normal Negative mg/dL Urine Leukocyte Esterase Negative Negative /uL Urine RBC 1 0 - 3 /hpf Urine Microscopic WBC 2 0-3 /HPF Urine Squamous Epithelial Cells Few <5 /hpf Urine Bacteria None seen None Seen /hpf Urine Hyaline Casts Mod 0 - 2 /lpf Urine Glucose 4+ H Normal mg/dL Test 03/08/25 19:51 Range/Units Troponin I High Sensitivity 8 </=54 ng/L Microbiology Date/Time Source Procedure Growth Status 03/12/25 11:15 Aspirate Gram Stain - Final Complete 03/12/25 11:15 Body Fluid Culture - Final Presumptive Delisa albicans Complete 03/09/25 17:55 Nose MRSA Screen - Final Complete Plan/Recommendation ASSESSMENT AND PLAN: ID Problem List: \-- Subcapsular perisplenic abscess \-- COPD exacerbation \-- Type 2 diabetes mellitus \-- Hypertension \-- Bariatric surgery (history) \-- Recent abdominal abscess drainage \-- Possible pulmonary atelectasis \-- Suspected fungal infection (presumptive Delisa albicans) -- prolonged qtc Assessment: Mr. Robert Baxter is a 74-year-old male with a past medical history of hypertension, type 2 diabetes mellitus, bariatric surgery, and COPD who presents with dyspnea, cough with green phlegm, and has required ongoing supplemental oxygen. He was previously in post-acute care where these symptoms developed. There are no reported fevers or chills. Physical exam notable for dry mucous membranes and rhonchi present in the chest; vital signs include tachypnea (RR 27) and hypoxemia (SpO2 77% on 3-4L nasal cannula). Laboratory evaluation reveals leukopenia (WBC 4.8), anemia (hemoglobin 10.8), and thrombocytopenia (platelet count 99). Renal function is normal. Hemoglobin A1c is 6.9. CT abdomen/pelvis shows a subcapsular perisplenic encapsulated fluid collection measuring 7 x 11 cm, likely infected (abscess); right and left pleural effusions; pulmonary ground glass changes; and evidence of rectosigmoid colonic distension suggestive of ileus or pseudo-obstruction; prior history of cho lecystectomy and gastrojejunostomy bypass. He underwent IR-guided drainage of the perisplenic abscess with an 8 Swedish pigtail catheter on 03/12, with 100-140cc of fluid drained so far. Abscess cultures are growing presumptive Delisa albicans; other organisms have been observed but not specified. He is currently on doxycycline, piperacillin- tazobactam, and micafungin. The source of infection may be intra-abdominal or hematogenous; further work-up with blood cultures and echocardiogram is recommended for evaluation of endocarditis. Management includes continued IV antibiotics (zosyn, doxycycline) and antifungal coverage (micafungin), continued drainage of abscess, maintenance of good glycemic control (goal glucose <180 mg/dL), and conservative use of steroids/TPN. Surgical and GI consultations recommended. Pulmonology to advise regarding ongoing oxygen requirements. Plan for extended antibiotic therapy is in place. Plan: \-- Continue piperacillin-tazobactam (Zosyn), can stop doxycycline (can inhibit zosyn) -- agree with micafungin while inpatient -- due to prolonged qtc, would use Zosyn and rezafungin as outpatient, continue x 30 days -- will need repeat CT in 4 weeks at outpatient, fu in ID clinic -- will need drain management by IR as outpatient \-- Maintain abdominal drain; monitor output \-- Blood cultures and echocardiogram to evaluate for possible endocarditis \-- Limit steroid and TPN use due to fungal infection \-- Maintain blood glucose below 180 mg/dL \-- Initiate bowel regimen for stercoral colitis -- colonoscopy as outpatient to evaluate potential sources for liver abscess Isolation Precautions: Not specified Assessment and plan was discussed with the patient as written above Plan is subject to change pending incorporation of new incoming informat ion/diagnostics. Updates may be added as addendum at the bottom (OR TOP) of this note Thank you for this consult. Infectious disease will continue to follow. Please contact Infectious Disease for any questions or concerns. Mariam Tsang M.D. [facility] Ph: ? Teams text: [email or web address] Electronically signed by: Mariam Tsang MD, 03/16/2025 \ History: The patient's chart and medications were reviewed in detail and the patient was seen and examined. History obtained from: Patient Mr. Robert Baxter is a 74-year-old male with a history of hypertension, type 2 diabetes mellitus, bariatric surgery, and COPD, presenting with shortness of breath and productive cough with green sputum. No fever or chills. The patient does not smoke. Past surgical history includes bariatric surgery, jeanie cystectomy, and gastrojejunostomy. Review of Systems: A complete 10-system review of systems was completed and negative except as noted in the HPI or here. ROS: -CONSTITUTIONAL: Denies fevers and chills. -HEENT: Dry mucous membranes. -RESPIRATORY: Positive for shortness of breath and cough with green sputum. -CV: Not discussed. -GI: No nausea or vomiting. Abdominal distension noted on imaging. -: Not discussed. -MSK: Not discussed. -SKIN: Not discussed. -NEUROLOGICAL: Not discussed. -PSYCHIATRIC: Not discussed. Past Medical History: Hypertension Type 2 diabetes mellitus COPD History of bariatric surgery Past Surgical History: Bariatric surgery Cholecystectomy Gastrojejunostomy Home Medications: Not provided in transcript. Allergies: Not provided in transcript. Family History: Not provided in transcript. Social History: Tobacco use: Denies smoking Alcohol: Not discussed Other substances: Not discussed Social Determinants of Health: Not provided in transcript. Objective: Vital Signs on Arrival: Respiratory rate: 27 Blood pressure: 109/77 SpO2: 77% on 3L nasal cannula Most Recent Vital Signs: SpO2: 77% on 3-4L nasal cannula (current) Other vital signs: Not specified Admission Weight/BMI: Not provided in transcript. Physical Exam: General: NAD Neck: Supple. No masses. HEENT: Dry mucous membranes. PERRL. Normal lids and conjunctiva. Oropharynx without lesions, exudates or excessive erythema. Normal appearance of the external aspects of the nose and ears. Heart: Regular rhythm, normal rate. No murmur. No lower extremity edema. Lungs: Normal respiratory effort. Rhonchi present in all lung farley. Abdomen: Quadrant tenderness. Soft. Non-distended. No masses or abdominal hernia. Msk: No digital cyanosis. Normal strength and tone in all 4 limbs Skin: Warm and dry, no rashes. Neuro: Alert. No facial droop or slurred speech. Extra-ocular movements intact. Sensation intact to soft touch in all 4 limbs. Psych: Appropriate mood. Full affect. Oriented to person, place, time, and situation. Lines: Drain8 Swedish pigtail abdominal drain (placed 03/12). Other lines: Not provided in transcript. Diagnostic Studies: Available diagnostic studies were reviewed personally. Significant relevant results and findings are outlined below or addressed in the Assessment and Plan above. Pertinent Imaging: \-- Chest X-Ray: Well-maintained lung volume. Bronchovascular markings. No large right pleural effusion or consolidation. \-- CT Abdomen and Pelvis (without contrast): Large encapsulated subcapsular perisplenic fluid collection (7 x 11 cm), consistent with abscess; [id number] stool burden in colon; marked rectosigmoid gaseous distension (possible ileus/pseudo-obstruction); post-cholecystectomy and gastrojejunostomy; changes suggestive of pulmonary atelectasis, left lower lobe consolidation, small left and tiny right pleural effusions; ground glass pulmonary opacities. \-- Other: Bilateral femoral head sclerotic changes (possible avascular necrosis). Pertinent Laboratory Results: \-- WBC: 4.8 \-- Hemoglobin: 10.8 \-- Platelets: 99 \-- Sodium: 137 \-- BUN: 9 \-- Creatinine: 0.97 \-- Hemoglobin A1C: 6.9 \-- Urinalysis: 4+ glucose, no leukocyte esterase or nitrite, no pyuria. \-- Abscess aspirate: Presumptive Delisa albicans; other organisms also seen. Additional Information: \-- Recent output from abdominal drain: 100-140cc \-- Ongoing oxygen requirement: 3-4L nasal cannula Electronically signed by: Mariam Tsang MD, 03/16/2025 Plan discussed with: Patient MARIAM TSANG MD Mar 16, 2025 13:57
[2025-03-16] MEDS: LORazepam 0.5 MG TAB PO PRN (17:43)
[2025-03-17] VITALS (15 sets, daily range): BP systolic 107–129; BP diastolic 61–86; PULSE 68–82; RESP 12–20; TEMP 98.1–98.3; O2SAT 92–98
[2025-03-17 06:54] LABS: Hematocrit 36.0 % (41.0-53.0); Mean Corpuscular Hemoglobin 21.9 pg (28.0-32.0)
[2025-03-17 06:56] LABS: Hemoglobin 10.9 g/dL (13.5-17.5); Mean Corpuscular Volume 72.1 fL (80.0-100.0); Nucleated Red Blood Cells % 0.1 %
[2025-03-17 06:58] LABS: Sodium 137 mmol/L (136-145)
[2025-03-17 06:59] LABS: Anion Gap 6 (5-15)
[2025-03-17 07:00] LABS: Calcium 10.2 mg/dL (8.7-10.4)
[2025-03-17 07:05] LABS: BUN/Creatinine Ratio 31.7 (10.0-20.0)
[2025-03-17 07:12] LABS: Blood Urea Nitrogen 26 mg/dL (9-23); Carbon Dioxide 38 mmol/L (20-31); Chloride 93 mmol/L (98-107); Glucose 146 mg/dL (74-106); Potassium 3.0 mmol/L (3.5-5.1)
[2025-03-17] MEDS: methylPREDNISolone SOD SUCC 125 MG/2 ML VL IV SCH (10:22)
--- NOTE | 2025-03-17 11:54 | DVHDSRES ---
Discharge Summary Date of Admission Resident Creating Document: TIMOTHY PACKER Mar 08, 2025 at 18:32 Date of Discharge: Mar 17, 2025 Admitting Diagnosis Abdominal pain Chest pain SOB Labs/Diagnostic Data: Laboratory Results Test 03/17/25 06:11 03/16/25 21:24 03/15/25 05:12 03/14/25 06:25 White Blood Count 9.8 10^3/uL (4.4-10.8) Red Blood Count 5.00 10^6/uL (4.5-5.90) Hemoglobin 10.9 g/dL (13.5-17.5) Hematocrit 36.0 % (41.0-53.0) Mean Corpuscular Volume 72.1 fL (80.0-100.0) Mean Corpuscular Hemoglobin 21.9 pg (28.0-32.0) Mean Corpuscular Hemoglobin Concent 30.3 g/dL (32.0-36.0) Red Cell Distribution Width 19.8 % (11.8-14.3) Platelet Count 387 10^3/uL (140-450) Mean Platelet Volume 6.8 fL (6.9-10.8) Neutrophils (%) (Auto) 77.2 % (37.0-80.0) Lymphocytes (%) (Auto) 11.3 % (10.0-50.0) Monocytes (%) (Auto) 11.5 % (0.0-12.0) Eosinophils (%) (Auto) 0.0 % (0.0-7.0) Basophils (%) (Auto) 0.0 % (0.0-2.0) Neutrophils # (Auto) 7.6 10 ^3/uL (1.6-8.6) Lymphocytes # (Auto) 1.1 10 ^3/uL (0.4-5.4) Monocytes # (Auto) 1.1 10 ^3/uL (0-1.3) Eosinophils # (Auto) 0 10 ^3/uL (0-0.8) Basophils # (Auto) 0 10 ^3/uL (0-0.2) Nucleated Red Blood Cells 0.1 % Platelet Estimate Adequate Hypochromasia (manual) Slight Microcytosis Slight Sodium Level 137 mmol/L (136-145) Potassium Level 3.0 mmol/L (3.5-5.1) Chloride Level 93 mmol/L (98-107) Carbon Dioxide Level 38 mmol/L (20-31) Anion Gap 6 (5-15) Blood Urea Nitrogen 26 mg/dL (9-23) Creatinine 0.82 mg/dL (0.700-1.30) Glomerular Filtration Rate Calc 92 mL/min (>90) BUN/Creatinine Ratio 31.7 (10.0-20.0) Serum Glucose 146 mg/dL (74-106) Calcium Level 10.2 mg/dL (8.7-10.4) POC Glucose 284 mg/dl (70-106) Total Bilirubin 0.2 mg/dL (0.2-1.0) Aspartate Amino Transferase (AST) 18 U/L (13-40) Alanine Aminotransferase (ALT) 16 U/L (7-40) Alkaline Phosphatase 60 U/L (46-116) Total Protein 7.2 g/dL (5.7-8.2) Albumin 3.8 g/dL (3.2-4.8) Magnesium Level 2.0 mg/dL (1.6-2.6) B-Type Natriuretic Peptide 36.61 pg/mL (0-100) Test 03/13/25 13:22 03/13/25 05:02 03/12/25 22:00 03/12/25 11:15 Blood Gas Specimen Type Arterial Blood Gas Sample Site Right radial Blood Gas Patient Temperature 37.0 Arterial Blood Date Drawn [id number] Arterial Blood pH 7.433 (7.350-7.450) Arterial Blood Partial Pressure CO2 54.7 mmHg (35.0-48.0) Arterial Blood Partial Pressure O2 66.4 mmHg (83.0-108.0) Arterial Blood HCO3 35.7 mmol/L (21.0-28.0) Arterial Blood Oxygen Saturation 92.3 % (94.0-98.0) Arterial Blood Base Excess 9.8 mmol/L (-2.0-3.0) Arterial Blood Oxyhemoglobin 91.6 % (94.0-98.0) Arterial Blood Carboxyhemoglobin 0.5 % (0.5-1.5) Arterial Blood Methemoglobin 0.3 % (0.0-1.5) John Test Yes Blood Gas Total Hemoglobin 11.60 g/dL (13.5-17.5) Blood Gas Liter Flow 4.00 Blood Gas Modality Nasal cannula FiO2 % 36.0 Prothrombin Time 11.2 sec (9.3-11.8) Prothrombin Time INR 1.06 (0.9-1.15) Activated Partial Thromboplast Time 51.4 SEC (24.5-34.5) Blood Gas Critical Value Read Back Yes Blood Gas Notified Whom nathaniel Mahoney Blood Gas Notified Time [id number] Blood Gas Notified By Rt, phuong vaughn Body Fluid Glucose 4 mg/dL (.) Test 03/10/25 06:10 03/09/25 17:55 03/09/25 05:07 03/08/25 21:21 Lactic Acid Level 1.3 mmol/L (0.4-2.0) Influenza Type A Antigen Negative (Negative) Influenza Type B Antigen Negative (Negative) SARS-CoV-2 Antigen (Rapid) Negative (NEGATIVE) Hemoglobin A1c 6.9 % A1C (<5.7) Urine Color Light-yellow (Yellow) Urine Clarity Clear (Clear) Urine pH 5.5 (5.0-9.0) Urine Specific [place] 1.025 (1.001-1.035) Urine Protein Trace (Negative) Urine Ketones Negative (Negative) Urine Blood Negative /uL (Negative) Urine Nitrite Negative (Negative) Urine Bilirubin Negative (Negative) Urine Urobilinogen Normal mg/dL (Negative) Urine Leukocyte Esterase Negative /uL (Negative) Urine RBC 1 /hpf (0 - 3) Urine Microscopic WBC 2 /HPF (0-3) Urine Squamous Epithelial Cells Few /hpf (<5) Urine Bacteria None seen /hpf (None Seen) Urine Hyaline Casts Mod /lpf (0 - 2) Urine Glucose 4+ mg/dL (Normal) Test 03/08/25 19:51 Troponin I High Sensitivity 8 ng/L (</=54) Other Laboratory Tests 03/17/25 06:11 Brief Hx & Hospital Course: This 74-year-old male with a past medical history of AFib, hypertension COPD on home oxygen 3 L via nasal cannula, hypertension, uncontrolled diabetes mellitus presented to the ED with the complaints of acute abdominal pain in the epigastric region. He rates the pain as 10 in 10 intensity. Reports having chest pain oppressive shortness of breath associated with productive cough and green phlegm. ABG was significant for acute respiratory distress which was attributed to a COPD exacerbation. CPAP/BiPAP was given for carbon dioxide retention. Patient was initially noncompliant, then was counseled for compliance. He was given breathing treatment as needed. Solu-Medrol 40 mg was added x-ray reveals no acute disease, with IV contrast revealed rim enhancing lesion spleen. CT abdomen pelvis without contrast revealed splenic subscapular fluid collection measuring 7.2 in 211 cm. Successful ultrasound and CT-guided placement of 8 F pigtail drain into a perisplenic abscess with 100 mL removed was done. His uncontrolled diabetes mellitus was managed with insulin on sliding scale and was monitored closely. His pain was controlled with morphine. The patient was given Zosyn and Micafungin sodium was added based on culture positive for Delisa. The patient was also diagnosed with acute Gram-positive or Gram-negative bacterial pneumonia which was treated with Zosyn and doxycycline. His symptoms improved significantly. Infectious disease specialist was consulted, we will continue IV antibiotic Zosyn and antifungal Rezafungin and discharge to assisted facility. Patient will continue physical therapy at the nursing facility. Social service was consulted for that. Discharge plan was discussed with the patient and patient agreed. The patient was stable,afebrile and was tolerating oral food well at the time of discharge. PMH: AFib, hypertension, COPD, DM PSH: Bariatric surgery( gastrojejunostomy), cholecystectomy, right knee total replacement, 5 spinal laminectomies, Family history: Noncontributory Home medication: Xarelto, Trelegy, Jardiance, lisinopril, metformin, metoprolol, exheltro, gabapentin, ferrous sulphate, oxycodone, hydrochlorothiazide, chlorthalidine, cyclobenapine, zrytec, tramadol (occasionally) Social history: Lives with his uncle, denies smoking currently but used to smoke a couple of packs per day left 15 years ago, alcohol, drugs. Allergies: Statin Pt is lying on bed General Appearance: Alert, Oriented X3, Cooperative, Not in acute distress. HEENT: Atraumatic, Mucous membranes moist/pink, on oxygen 5L via nasal cannula Respiratory: Presence of coarse crackles and rhonchi all over bilateral lung farley Cardiovascular: Regular rate, Normal S1, Normal S2, No murmurs Abdominal: Active bowel sounds, Soft, no distention, sterile bandage and small catheter placed in drainage site with minimal fluid in the drainage bottle Extremities: No edema, Normal pulses, No tenderness/swelling Skin: No Significant rash, except past surgical scars Neuro: Normal speech, sensorimotor deficits none Psych/Mental Status: Mental status NL, Mood NL Nurse was there as wash worker during examination Operations or Procedures CT abdomen pelvis with IV contrast1. Rim-enhancing lesion in the lateral aspect of the spleen with local mass effect measuring 8.3 x 2.9 x 10.7 cm, concerning for abscess. 2. Constipation with suggestion of fecal impaction of the rectum. 3. Fecal retention in the colon consistent with constipation. 4. Degenerative changes lumbar spine as described. CT abdomen pelvis without contrast:Splenic subscapular /perisplenic fluid collection that is encapsulated measuring 7.2 x 11.0 cm. Infected collection/ abscess remains within differential. Recommend CT abdomen pelvis with contrast and surgical consultation for further evaluation, management. Moderate to large volume stool within the colon. Marked gaseous distention of the rectosigmoid colon which could be secondary to ileus, pseudo-obstruction. Recommend GI/ surgical consultation for further evaluation. Cholecystectomy. Gastrojejunostomy. Bibasilar pulmonary atelectasis and developing left lower lobe consolidation. Small left and tiny right pleural effusions. 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 CT abdomen pelvis with IV contrast1. Rim-enhancing lesion in the lateral aspect of the spleen with local mass effect measuring 8.3 x 2.9 x 10.7 cm, concerning for abscess. Chest x-ray: 1. No acute disease. Chronic appearing bilateral interstitial pulmonary markings. 2. Right PICC. Condition at Discharge: Stable Final Diagnosis/Problems List #Acute Gram-positive or Gram-negative bacterial pneumonia-improving #Pleural effusions: small left and tiny right as seen below on CT # Splenic abscess s/p drainage # Ileus versus obstruction ruled out # AFib without RVR secondary hypercoagulable state #Hypokalemia-resolving #Uncontrolled DM-controlling now # [id number]/ Lumbosacral iliac degenerate disease, Lumbar degenerative disc disease facet hypertrophic changes Discharge Disposition: Retirement Facility Discharge Instruct/Medications Diet: Consistent carbohydrate, Cardiac 2g Na,low cholest, Renal Activity: No Restrictions, As Tolerated Follow Up/Referral: fu with pcp Medications: continue meds as precribed in spreadsheet No Active Prescriptions or Reported Meds Discharge Statement: "Patient was advised to return to the ER or call 911 if any headaches, dizziness, shortness of breath, chest pain, abdominal pain, bleeding, fevers, or worsening of medical condition. Patient was counseled about treatment plan, medications, possible side effects, patientverbalized understanding. All questions were answered to the best of my ability. This discharge took greater then 30 minutes in planning, reviewing documentation, counseling the patient, and discussing with other team members." ASSESSMENT ASSESSMENT Assessment splenic abscess Date of Service: Mar 17, 2025 Billing Provider: SALVADOR HOFF MD Common Visit Codes: 16539-TUC/OBS DISCH DAY >30min BIRDIETIMOTHY RESIDENT Mar 17, 2025 11:54 SALVADOR HOFF MD Mar 17, 2025 23:10
[2025-03-17] MEDS: POTASSIUM EFFERVESENT TAB 25 MEQ PO ONE ×2 (16:53)
[2025-03-17] MEDS ORDERED: APIXABAN 5 MG TAB PO SCH (22:00)
[2025-03-18] MEDS ORDERED: FUROSEMIDE 40 MG/4 ML VIAL IV SCH (10:00)
== END 2025-03-17 19:08 | DRG 814 ==
LOC: EDBD 16:00 → ER 16:00 → OVERFLOW 18:32 → WEST WING 18:34 → TELE-WESTW 03-09 14:38
PROVIDERS: ADMIT Internal Medicine; ATTEND Internal Medicine
PROC: 079P30Z Drainage of Spleen with Drainage Device, Percutaneous Approach (ICD-10-PCS; principal; 2025-03-12)
PROC: 5A09357 Assistance with Respiratory Ventilation, Less than 24 Consecutive Hours, Continuous Positive Airway Pressure (ICD-10-PCS; 2025-03-13)
PROC: 5A09357 Assistance with Respiratory Ventilation, Less than 24 Consecutive Hours, Continuous Positive Airway Pressure (ICD-10-PCS; 2025-03-14)
DX: D73.3 Abscess of spleen (principal); J15.69 Pneumonia due to other Gram-negative bacteria; J96.01 Acute respiratory failure with hypoxia; J96.02 Acute respiratory failure with hypercapnia; J15.9 Unspecified bacterial pneumonia; J44.1 Chronic obstructive pulmonary disease with (acute) exacerbation; J44.0 Chronic obstructive pulmonary disease with (acute) lower respiratory infection; D68.69 Other thrombophilia; J90 Pleural effusion, not elsewhere classified; E66.01 Morbid (severe) obesity due to excess calories; Z20.822 Contact with and (suspected) exposure to COVID-19; G89.4 Chronic pain syndrome; E87.6 Hypokalemia; E11.42 Type 2 diabetes mellitus with diabetic polyneuropathy; N18.9 Chronic kidney disease, unspecified; I12.9 Hypertensive chronic kidney disease with stage 1 through stage 4 chronic kidney disease, or unspecified chronic kidney disease; E11.22 Type 2 diabetes mellitus with diabetic chronic kidney disease; I48.91 Unspecified atrial fibrillation; M51.369 Other intervertebral disc degeneration, lumbar region without mention of lumbar back pain or lower extremity pain; D72.819 Decreased white blood cell count, unspecified; D69.6 Thrombocytopenia, unspecified; D64.9 Anemia, unspecified; Z99.81 Dependence on supplemental oxygen; Z98.84 Bariatric surgery status; Z88.8 Allergy status to other drugs, medicaments and biological substances; Z90.49 Acquired absence of other specified parts of digestive tract; Z79.01 Long term (current) use of anticoagulants; Z68.30 Body mass index [BMI] 30.0-30.9, adult
CPT/HCPCS: 10005; 36415; 36600; 71045; 74150; 74176; 74177; 75989; 77012; 80048; 80053; 81001; 82805; 82962; 83036; 83605; 83735; 83880; 84132; 84484; 85025; 85610; 85730; 87040; 87077; 87081; 87205; 87426; 87804; 93005; 93306; 94640; 94660; 96365; 96375; 97110; 97163; 97530; 99291; C1729; G0378; J1815; J2003; J2248; J2250; J2405; J2470; J2543; J3480; Q0162

== ENCOUNTER 2025-03-26 05:00 | Inpatient (IN) | payer MEDICARE ==
[~2025-03-26] VITALS: Ht 190.5 cm; Wt 96.0 kg
[2025-03-26] VITALS (12 sets, daily range): BP systolic 138–159; BP diastolic 78–87; PULSE 73–90; RESP 2–20; TEMP 97.6–98.1; O2SAT 93–99
[2025-03-26 06:32] LABS: Chloride 103 mmol/L (98-107); Potassium 4.0 mmol/L (3.5-5.1); Sodium 139 mmol/L (136-145)
[2025-03-26 06:33] LABS: Anion Gap 6 (5-15); Calcium 8.7 mg/dL (8.7-10.4); Carbon Dioxide 30 mmol/L (20-31)
[2025-03-26 06:35] LABS: Hematocrit 34.7 % (41.0-53.0); Hemoglobin 10.5 g/dL (13.5-17.5); Mean Corpuscular Hemoglobin 22.5 pg (28.0-32.0); Mean Corpuscular Volume 74.4 fL (80.0-100.0); Nucleated Red Blood Cells % 0.2 %
[2025-03-26 06:38] LABS: BUN/Creatinine Ratio 13.3 (10.0-20.0); Glucose 92 mg/dL (74-106)
[2025-03-26 06:39] LABS: Blood Urea Nitrogen 8 mg/dL (9-23)
--- NOTE | 2025-03-26 06:43 | ED.PDOC ---
General HPI Comments 74 y/o M, BIBA, with PMHx of neuropathy, anxiety, HTN, COPD, CAD, and GERD presents to the ED for CC of urinary discomfort. Patient reports, that he has been experiencing urinary discomfort with associated penile pain d/t Miller Catheter x2days. Patient denies penile discharge, back pain, flank pain, fever, or chills. No other associated symptoms, modifiers, recent injuries or sick contacts present at this time. Chief Complaint: Upper Extremity Time Seen by MD: 06:25 Reviewed notes: Nurses Notes, Application Lead Notes, Medications, Allergies Allergies: Coded Allergies: Statins (Verified Allergy, Severe, 03/08/25) Home Meds No Active Prescriptions or Reported Meds Information Source: Patient, Emergency Med Personnel Mode of Arrival: EMS Severity: Moderate Inability to void: None Timing: Days Duration: Since onset Prehospital treatment: None Onset: Spontaneous Symptoms: None History of: None Location: None Penile discharge: None Modifying factors: None associated signs and symptoms: None Past Medical History PAST MEDICAL HISTORY: Anxiety, CAD, GERD, HTN Surgical History (Other): cervical, lumbar Family History Family History: Unknown Social History Smoker: Non-Smoker Alcohol: Denies ETOH Use Drugs: Denies Drug Use Lives In: Home Constitutional: denies: chills, diaphoresis, fatigue, fever, malaise, sweats, weakness, others EENTM: denies: blurred vision, double vision, ear bleeding, ear discharge, ear drainage, ear pain, ear ringing, eye pain, eye redness, hearing loss, mouth pain, mouth swelling, nasal discharge, nose bleeding, nose congestion, nose pain, photophobia, tearing, throat pain, throat swelling, voice changes, others Respiratory: denies: cough, hemoptysis, orthopnea, SOB at rest, shortness of breath, SOB with excertion, stridor, wheezing, others Cardiovascular: denies: chest pain, dizzy spells, diaphoresis, Dyspnea on exertion, edema, irregular heart beat, left arm pain, lightheadedness, palpitations, PND, syncope, others Gastrointestinal: denies: abdomen distended, abdominal pain, blood streaked bowels, constipated, diarrhea, dysphagia, difficulty swallowing, hematemesis, melena, nausea, poor appetite, poor fluid intake, rectal bleeding, rectal pain, vomiting, others Genitourinary: reports: others (penile pain); denies: burning, dysuria, flank pain, frequency, hematuria, incontinence, penile discharge, penile sore, pain, testicle pain, testicle swelling, urgency Neurological: denies: dizziness, fainting, headache, left sided numbness, left sided weakness, numbness, paresthesia, pre-existing deficit, right sided numbness, right sided weakness, seizure, speech problems, tingling, tremors, weakness, others Musculoskeletal: denies: back pain, gout, joint pain, joint swelling, muscle pa in, muscle stiffness, neck pain, others Integumetry: denies: bruises, change in color, change in hair/nails, dryness, laceration, lesions, lumps, rash, wounds, others Allergic/Immunocompromised: denies: Difficulty Healing, Frequent Infections, Hives, Itching, others Hematologic/Lymphatic: denies: anemia, blood clots, easy bleeding, easy bruising, swollen glands, others Endocrine: denies: excessive hunger, excessive sweating, excessive thirst, excessive urination, flushing, intolerance to cold, intolerance to heat, unexplained weight gain, unexplained weight loss, others Psychiatric: denies: anxiety, bipolar disorder, depression, hopeless, panic disorder, schizophrenia, sleepless, suicidal, others All Other Systems: Reviewed and Negative Physical Exam General Appearance: Moderate Distress HEENT: Normal ENT Inspection, Pharynx Normal, TMs Normal Neck: Full Range of Motion, Non-Tender, Normal, Normal Inspection Respiratory: Chest Non-Tender, Lungs Clear, No Accessory Muscle Use, No Respiratory Distress, Normal Breath Sounds Cardiovascular: No Edema, No JVD, No Murmur, No Gallop, Normal Peripheral Pulses, Regular Rate/Rhythm Breast Exam: Deferred Gastrointestinal: No Organomegaly, Non Tender, No Pulsatile Mass, Normal Bowel Sounds, Soft Genitalia: Deferred Pelvic: Deferred Rectal: Deferred Extremities: No calf tenderness, Normal capillary refill, Normal inspection, Normal range of motion, Non-tender, No pedal edema Musculoskeletal : Apperance: Normal Neurologic: Alert, No Motor Deficits, No Sensory Deficits Cerebellar Function: NOT DONE Reflexes: NOT DONE Skin: Normal Color Peripheral Pulses: 3+ Radial (R), 3+ Radial (L) Lymphatic: No Adenopathy Was a procedure done? Was a procedure done?: No Differential Diagnosis Kidney stone (Female): N/A Kidney stone (Male): Urinary obstruction Penile/Scrotal: Prostatitis, Urolithiasis, Urinary Retention Urinary Problem (Female): N/A X-Ray, Labs, Meds, VS Vital Signs Date Time Temp Pulse Resp B/P (MAP) Pulse Ox O2 Delivery O2 Flow Rate FiO2 03/26/25 05:08 98.1 65 16 124/73 (90) 98 98.1 Lab Test 03/26/25 06:56 03/26/25 05:56 Range/Units Troponin I High Sensitivity 6 8 </=54 ng/L White Blood Count 5.0 4.4-10.8 10^3/uL Red Blood Count 4.66 4.5-5.90 10^6/uL Hemoglobin 10.5 L 13.5-17.5 g/dL Hematocrit 34.7 L 41.0-53.0 % Mean Corpuscular Volume 74.4 L 80.0-100.0 fL Mean Corpuscular Hemoglobin 22.5 L 28.0-32.0 pg Mean Corpuscular Hemoglobin Concent 30.3 L 32.0-36.0 g/dL Red Cell Distribution Width 20.4 H 11.8-14.3 % Platelet Count 397 140-450 10^3/uL Mean Platelet Volume 6.0 L 6.9-10.8 fL Neutrophils (%) (Auto) 53.1 37.0-80.0 % Lymphocytes (%) (Auto) 31.1 10.0-50.0 % Monocytes (%) (Auto) 13.0 H 0.0-12.0 % Eosinophils (%) (Auto) 1.9 0.0-7.0 % Basophils (%) (Auto) 0.9 0.0-2.0 % Neutrophils # (Auto) 2.7 1.6-8.6 10 ^3/uL Lymphocytes # (Auto) 1.6 0.4-5.4 10 ^3/uL Monocytes # (Auto) 0.7 0-1.3 10 ^3/uL Eosinophils # (Auto) 0.1 0-0.8 10 ^3/uL Basophils # (Auto) 0 0-0.2 10 ^3/uL Nucleated Red Blood Cells 0.2 % Platelet Estimate Adequate Hypochromasia (manual) Moderate Anisocytosis (manual) Slight Microcytosis Moderate Sodium Level 139 136-145 mmol/L Potassium Level 4.0 3.5-5.1 mmol/L Chloride Level 103 98-107 mmol/L Carbon Dioxide Level 30 20-31 mmol/L Anion Gap 6 5-15 Blood Urea Nitrogen 8 L 9-23 mg/dL Creatinine 0.60 L 0.700-1.30 mg/dL Glomerular Filtration Rate Calc 101 >90 mL/min BUN/Creatinine Ratio 13.3 10.0-20.0 Serum Glucose 92 74-106 mg/dL Lactic Acid Level 0.7 0.4-2.0 mmol/L Calcium Level 8.7 8.7-10.4 mg/dL [place] [id number] Ph: [phone] DIAGNOSTIC IMAGING Diagnostic Imaging Report : [id number] Signed PATIENT: STEPHEN MARRERO LACCT: [id number] UNIT: [id number] : 1950 LOC: ER ROOM / BED: / AGE / SEX: 74 / M ADM STATUS: REG ER SERVICE [id number] ORDERING PHYSICIAN: LAURE NATION MD PROCEDURE(s): ABPL - CT AB PEL WO CON-NO ORAL OR IV REASON: suprapubicpain ORDER NUMBER(s): [id number], ACCESSION NUMBER(s): [id number] Exam: CT CT AB PEL WO CON-NO ORAL OR IV History: suprapubicpain Comparison Study: CT CT AB PEL WO CON-NO ORAL OR IV on DOS: 03/08/25 Technique: Multidetector spiral CT of the abdomen was performed from lung bases to pubic symphysis. Imaging was performed without IV contrast. Axial, coronal and sagittal multiplanar reformats were obtained from the axial data set by the technologist. Radiation Dose : 1. Abdomen/Pelvis: CTDIvol 21.4 mGy, DLP 1428.15 mGy*cm. Findings: Evaluation of solid organs is limited due to lack of intravenous contrast use. Lung Bases: Cardiomegaly. Coronary artery calcifications. Vascular calcifications of the aorta. Small bilateral pleural effusions. Liver: The liver is normal in size. No focal lesions. Gallbladder and Biliary Tree: Gallbladder is surgically absent. Spleen: Unremarkable Pancreas: The pancreas is grossly normal in appearance. Adrenal Glands: Unremarkable Kidneys: No hydronephrosis. Bilateral renal cysts are present measuring up to 9.4 cm. Bladder: Bladder is decompressed with a Miller catheter and cannot be adequately assessed. Bowel: The stomach is grossly normal in appearance. Moderate colonic stool. Mild bowel wall thickening of the rectosigmoid colon. The appendix is not visualized; however, no secondary findings of acute appendicitis identified. Ascites: Absent Lymphadenopathy: No mesenteric, retroperitoneal or periportal lymphadenopathy. Abdominal Wall and Mesentery: Unremarkable. Vasculature: The visualized abdominal aorta is normal in size and caliber. There is extensive atherosclerotic calcification of the aorta and its branches. Evaluation of abdominal and pelvic vessels is limited due to lack of intravenous contrast. Pelvic Organs: Unremarkable Musculoskeletal: No aggressive focal bony lesions, acute fractures or dislocation. Advanced degenerative changes of bilateral hips. Degenerative changes of the spine. IMPRESSION: Moderate colonic stool. Mild thickening of the rectosigmoid colon; possibly colitis. ATED BY: OJ WEST MD DICTATED DATE/TIME: 03/26/25823 SIGNED BY: OJ WEST MD SIGNED DATE/TIME: 03/26/25823 CC: Patient alert. Complaining of suprapubic pain. Was recently discharged from this hospital. Has a Miller catheter in place. Cardiac marker within normal limits. Has a midline in place. WBC within normal limits. He is anemic. Reviewed his previous visit. Explained to the patient. Continue monitoring. Time of 1ST Reevaluation: 06:55 Reevaluation 1ST: Unchanged Patient Education/Counseling: Diagnosis, Treatment Family Education/Counseling: No Family Present SEPSIS Sepsis Screen Date sepsis recognized/suspect: Mar 26, 2025 Time Sepsis recognized/suspect: 511 Recent Procedure: No On Antibiotic Therapy: No Respiratory Rate >20: No Heart Rate >90: No Temp<36 C (96.8 F) or >38.3 C: No SBP <90 or MAP <65 mmHG: No New Acute Mental Status Change: No Is the patient on CPAP, BIPAP,: No Physician Orders Urinalysis (03/26/25 05:20) Blood Culture (03/26/25 05:20) Troponin-I Hs (03/26/25 08:20) Ct Ab Pel Wo Con-No Oral Or Iv (03/26/25 07:19) Vital Signs Date Time Temp Pulse Resp B/P (MAP) Pulse Ox O2 Delivery O2 Flow Rate FiO2 03/26/25 05:08 98.1 65 16 124/73 (90) 98 98.1 Laboratory Tests Test 03/26/25 05:56 Lactic Acid Level 0.7 mmol/L (0.4-2.0) White Blood Count 5.0 10^3/uL (4.4-10.8) Departure 1 Departure Time of Disposition: 07:18 Impression: Primary Impression: Generalized weakness Additional Impression: Anemia Qualified Codes: D64.9 - Anemia, unspecified Disposition: ADMITTED INPATIENT Admit to: Med Surg Condition: Guarded e-Prescriptions No Active Prescriptions or Reported Meds Critical Care Note Critical Care Time?: No Stability Stability form required: No Heart Score Heart Score: Heart Score Response (Comments) Value History N/A 0 EKG N/A 0 Age N/A 0 Risk Factors N/A 0 Troponin N/A 0 Total 0 I personally scribed for LAURE NATION MD ([email or web address]) on 03/26/25 at 06:43. Electronically submitted by Gregoria Newton ([email or web address]). I personally scribed for LAURE NATION MD ([email or web address]) on 03/26/25 at 08:35. Electronically submitted by Gregoria Newton ([email or web address]). LAURE NATION MD Mar 26, 2025 06:43
[2025-03-26 08:27] LABS: Anisocytosis Slight
--- NOTE | 2025-03-26 08:27 | DVH ---
Exam: CT CT AB PEL WO CON-NO ORAL OR IV History: suprapubicpain Comparison Study: CT CT AB PEL WO CON-NO ORAL OR IV on DOS: 03/08/25 Technique: Multidetector spiral CT of the abdomen was performed from lung bases to pubic symphysis. I maging was performed without IV contrast. Axial, coronal and sagittal multiplanar reformats were obta ined from the axial data set by the technologist. Radiation Dose : 1. Abdomen/Pelvis: CTDIvol 21.4 mGy, DLP 1428.15 mGy*cm. Findings: Evaluation of solid organs is limited due to lack of intravenous contrast use. Lung Bases: Cardiomegaly. Coronary artery calcifications. Vascular calcifications of the aorta. Small bilateral pleural effusions. Liver: The liver is normal in size. No focal lesions. Gallbladder and Biliary Tree: Gallbladder is surgically absent. Spleen: Unremarkable Pancreas: The pancreas is grossly normal in appearance. Adrenal Glands: Unremarkable Kidneys: No hydronephrosis. Bilateral renal cysts are present measuring up to 9.4 cm. Bladder: Bladder is decompressed with a Miller catheter and cannot be adequately assessed. Bowel: The stomach is grossly normal in appearance. Moderate colonic stool. Mild bowel wall thickeni ng of the rectosigmoid colon. The appendix is not visualized; however, no secondary findings of acute appendicitis identified. Ascites: Absent Lymphadenopathy: No mesenteric, retroperitoneal or periportal lymphadenopathy. Abdominal Wall and Mesentery: Unremarkable. Vasculature: The visualized abdominal aorta is normal in size and caliber. There is extensive athero sclerotic calcification of the aorta and its branches. Evaluation of abdominal and pelvic vessels is limited due to lack of intravenous contrast. Pelvic Organs: Unremarkable Musculoskeletal: No aggressive focal bony lesions, acute fractures or dislocation. Advanced degenerat marco changes of bilateral hips. Degenerative changes of the spine. IMPRESSION: Moderate colonic stool. Mild thickening of the rectosigmoid colon; possibly colitis.
[2025-03-26] MEDS: ONDANSETRON HCL 4 MG/2 ML VIAL IV ONE (10:04)
[2025-03-26] MEDS: MORPHINE SULFATE 4 MG/ML SYR/VIAL IV ONE (10:05)
[2025-03-26] MEDS: SODIUM CHLORIDE 0.9% 1,000 ML IV ONE (10:14)
[2025-03-26] MEDS ORDERED: ACETAMINOPHEN 325 MG TAB PO PRN (10:15)
[2025-03-26] MEDS ORDERED: EMPA1TAB PO (10:27)
[2025-03-26] MEDS ORDERED: OXY5T PO (10:27)
[2025-03-26] MEDS ORDERED: HYDR25TA5 PO (10:27)
--- NOTE | 2025-03-26 11:01 | DVHINCON2 ---
Date of service: Mar 26, 2025 History of Present Illness 74 yo M with recent GI and urologic procedure and admitted here twice comig in for penile pain. pt has hx of abnormal ecg and was seen by myself last admit. his trop is - today and he has no chest pain Past Medical History reviewed Family History: Patient reports no known family medical history. Allergies: Coded Allergies: Statins (Verified Allergy, Severe, 03/08/25) Home Meds Reported Medications Empagliflozin (Jardiance) 10 Mg Tab, 1 TAB PO DAILY 03/26/25 Oxycodone Hcl (OXYCODONE HCL) 5 Mg Tb, 1 TAB PO QIDP PRN 03/26/25 Hctz (Hydrochlorothiazide) 25 Mg Tab, 0.5 TAB PO QAM 03/26/25 Current Medications Current Medications Medications (Trade) Dose Ordered Sig/Manoj Route PRN Reason Start Time Stop Time Status Last Admin Sodium Chloride (Saline Lock Ns) 10 ml Q8HR IV 03/26/25 14:00 UNV Acetaminophen/ Hydrocodone Bitart ([place] 5/325MG Tab) 1 tab Q4HP PRN PO MODERATE PAIN (4-6 PAIN SCALE) 03/26/25 10:15 UNV Ondansetron HCl (Zofran) 4 mg Q4HP PRN IV NAUSEA / VOMITING 03/26/25 10:15 UNV Docusate Sodium (Colace Capsule) 100 mg BIDPRN PRN PO FOR CONSTIPATION 03/26/25 10:15 UNV Acetaminophen (Tylenol Tablet) 650 mg Q6HP PRN PO PAIN SCALE 1-3 OR TEMP>100.4 03/26/25 10:15 UNV Review of Systems 10 pt ros otherwise negative Vital Signs Vital Signs Date Time Temp Pulse Resp B/P (MAP) Pulse Ox O2 Delivery O2 Flow Rate FiO2 03/26/25 10:05 74 20 151/61 03/26/25 10:00 98.3 96 98.3 03/26/25 10:00 Nasal Cannula* 2 28 Physical Exam nad s1 s2 rrr ctab soft nt/nd obeisty no edema Labs/Diagnostic Data Labs Test 03/26/25 10:05 03/26/25 05:56 Range/Units Troponin I High Sensitivity 4 </=54 ng/L White Blood Count 5.0 4.4-10.8 10^3/uL Red Blood Count 4.66 4.5-5.90 10^6/uL Hemoglobin 10.5 L 13.5-17.5 g/dL Hematocrit 34.7 L 41.0-53.0 % Mean Corpuscular Volume 74.4 L 80.0-100.0 fL Mean Corpuscular Hemoglobin 22.5 L 28.0-32.0 pg Mean Corpuscular Hemoglobin Concent 30.3 L 32.0-36.0 g/dL Red Cell Distribution Width 20.4 H 11.8-14.3 % Platelet Count 397 140-450 10^3/uL Mean Platelet Volume 6.0 L 6.9-10.8 fL Neutrophils (%) (Auto) 53.1 37.0-80.0 % Lymphocytes (%) (Auto) 31.1 10.0-50.0 % Monocytes (%) (Auto) 13.0 H 0.0-12.0 % Eosinophils (%) (Auto) 1.9 0.0-7.0 % Basophils (%) (Auto) 0.9 0.0-2.0 % Neutrophils # (Auto) 2.7 1.6-8.6 10 ^3/uL Lymphocytes # (Auto) 1.6 0.4-5.4 10 ^3/uL Monocytes # (Auto) 0.7 0-1.3 10 ^3/uL Eosinophils # (Auto) 0.1 0-0.8 10 ^3/uL Basophils # (Auto) 0 0-0.2 10 ^3/uL Nucleated Red Blood Cells 0.2 % Platelet Estimate Adequate Hypochromasia (manual) Moderate Anisocytosis (manual) Slight Microcytosis Moderate Sodium Level 139 136-145 mmol/L Potassium Level 4.0 3.5-5.1 mmol/L Chloride Level 103 98-107 mmol/L Carbon Dioxide Level 30 20-31 mmol/L Anion Gap 6 5-15 Blood Urea Nitrogen 8 L 9-23 mg/dL Creatinine 0.60 L 0.700-1.30 mg/dL Glomerular Filtration Rate Calc 101 >90 mL/min BUN/Creatinine Ratio 13.3 10.0-20.0 Serum Glucose 92 74-106 mg/dL Lactic Acid Level 0.7 0.4-2.0 mmol/L Calcium Level 8.7 8.7-10.4 mg/dL Assessment abnormal ecg aortic sclerosis penile pain ckd HTN HL obesity Plan/Recommendation fu echo specialist consult as appropriate fu ecg trop is - x 1 , no chest pain or major sob at this time Plan discussed with: Patient PATSY BELTRAN MD Mar 26, 2025 11:01
--- NOTE | 2025-03-26 11:10 | DVHHP2 ---
History of Present Illness Reason for Visit: Painful urination History of Present Illness Robert Dillon is a 74-year-old male with past medical history of COPD home oxygen use, hypertension, anxiety, GERD, and neuropathy, who came to the hospital for complaints of painful urination. Patient states he was hospitalized here for about a month, he was then sen to [facility] and has been there for about a month. He had a Garnica catheter placed during his hospitalization and removed prior to dishcarge. He states he insisted the catheter be placed once he was at [facility] due to difficulty moving and ambulating from weakness. He now states he has burning and pain due to the catheter, but he doesn't want it out. Cardiovascular: AFIB, HTN Pulmonary: COPD GI: GERD Psych: Anxiety Past Surgical History: Other (multiple back and neck surgeries, right knee) Smoke: No ALCOHOL: none Drugs: None Lives: Fdc Domestic Violence: Neg Review of Systems Constitutional: No: Fever, Chills, Sweats, Weakness, Malaise, Other Eyes: No: Pain, Vision change, Conjunctivae inflammation, Eyelid inflammation, Other, Redness ENT: No: Ear pain, Ear discharge, Nose pain, Nose discharge, Nose congestion, Mouth pain, Mouth swelling, Throat pain, Throat swelling, Other Respiratory: No: Cough, Dry, Shortness of breath, SOB with excertion, Wheezing, Hemoptysis, Pleuritic Pain, Sputum, Wheezing, Other Cardiovascular: No: Chest Pain, Palpitations, Orthopnea, Paroxysmal Noc. Dyspnea, Edema, Lt Headedness, Other Gastrointestinal: No: Nausea, Vomiting, Abdominal Pain, Diarrhea, Constipation, Melena, Hematochezia, Other Genitourinary: Dysuria; No Frequency, No Incontinence, No Hematuria, No Retention; Other (Chronic garnica catheter) Musculoskeletal: No: other, neck pain, shoulder pain, arm pain, back pain, hand pain, leg pain, foot pain Skin: No: Rash, Lesions, Jaundice, Bruising, Other Neurological: No: Weakness, Numbness, Incoordination, Change in speech, Confusion, Seizures, Other Allergies: Coded Allergies: Statins (Verified Allergy, Severe, 03/08/25) Exam Vital Signs Vital Signs Date Time Temp Pulse Resp B/P (MAP) Pulse Ox O2 Delivery O2 Flow Rate FiO2 03/26/25 10:05 74 20 151/61 03/26/25 10:00 98.3 96 98.3 03/26/25 10:00 Nasal Cannula* 2 28 General Appearance: Alert, Oriented X3, Cooperative, mild distress HEENT: Atraumatic, PERRLA Respiratory: Clear to auscultation, Normal air movement Cardiovascular: Regular rate, Normal S1, Normal S2, No murmurs Abdominal: Normal bowel sounds, Soft, Other (Pelvic pain, chronic garnica amos) Extremities: No clubbing Skin: No rashes, No breakdown, No significant lesion Neuro: Normal speech, Other (bed bound) Psych/Mental Status: Mental status NL, Mood NL Labs/Xrays Labs Test 03/26/25 10:05 03/26/25 05:56 Range/Units White Blood Count 5.0 4.4-10.8 10^3/uL Red Blood Count 4.66 4.5-5.90 10^6/uL Hemoglobin 10.5 L 13.5-17.5 g/dL Hematocrit 34.7 L 41.0-53.0 % Mean Corpuscular Volume 74.4 L 80.0-100.0 fL Mean Corpuscular Hemoglobin 22.5 L 28.0-32.0 pg Mean Corpuscular Hemoglobin Concent 30.3 L 32.0-36.0 g/dL Red Cell Distribution Width 20.4 H 11.8-14.3 % Platelet Count 397 140-450 10^3/uL Mean Platelet Volume 6.0 L 6.9-10.8 fL Neutrophils (%) (Auto) 53.1 37.0-80.0 % Lymphocytes (%) (Auto) 31.1 10.0-50.0 % Monocytes (%) (Auto) 13.0 H 0.0-12.0 % Eosinophils (%) (Auto) 1.9 0.0-7.0 % Basophils (%) (Auto) 0.9 0.0-2.0 % Neutrophils # (Auto) 2.7 1.6-8.6 10 ^3/uL Lymphocytes # (Auto) 1.6 0.4-5.4 10 ^3/uL Monocytes # (Auto) 0.7 0-1.3 10 ^3/uL Eosinophils # (Auto) 0.1 0-0.8 10 ^3/uL Basophils # (Auto) 0 0-0.2 10 ^3/uL Nucleated Red Blood Cells 0.2 % Platelet Estimate Adequate Hypochromasia (manual) Moderate Anisocytosis (manual) Slight Microcytosis Moderate Sodium Level 139 136-145 mmol/L Potassium Level 4.0 3.5-5.1 mmol/L Chloride Level 103 98-107 mmol/L Carbon Dioxide Level 30 20-31 mmol/L Anion Gap 6 5-15 Blood Urea Nitrogen 8 L 9-23 mg/dL Creatinine 0.60 L 0.700-1.30 mg/dL Glomerular Filtration Rate Calc 101 >90 mL/min BUN/Creatinine Ratio 13.3 10.0-20.0 Serum Glucose 92 74-106 mg/dL Lactic Acid Level 0.7 0.4-2.0 mmol/L Calcium Level 8.7 8.7-10.4 mg/dL Exam: CT CT AB PEL WO CON-NO ORAL OR IV Findings: Evaluation of solid organs is limited due to lack of intravenous contrast use. Lung Bases: Cardiomegaly. Coronary artery calcifications. Vascular calcifications of the aorta. Small bilateral pleural effusions. Liver: The liver is normal in size. No focal lesions. Gallbladder and Biliary Tree: Gallbladder is surgically absent. Spleen: Unremarkable Pancreas: The pancreas is grossly normal in appearance. Adrenal Glands: Unremarkable Kidneys: No hydronephrosis. Bilateral renal cysts are present measuring up to 9.4 cm. Bladder: Bladder is decompressed with a Garnica catheter and cannot be adequately assessed. Bowel: The stomach is grossly normal in appearance. Moderate colonic stool. Mild bowel wall thickening of the rectosigmoid colon. The appendix is not visualized; however, no secondary findings of acute appendicitis identified. Ascites: Absent Lymphadenopathy: No mesenteric, retroperitoneal or periportal lymphadenopathy. Abdominal Wall and Mesentery: Unremarkable. Vasculature: The visualized abdominal aorta is normal in size and caliber. There is extensive atherosclerotic calcification of the aorta and its branches. Evaluation of abdominal and pelvic vessels is limited due to lack of intravenous contrast. Pelvic Organs: Unremarkable Musculoskeletal: No aggressive focal bony lesions, acute fractures or disloc ation. Advanced degenerative changes of bilateral hips. Degenerative changes of the spine. IMPRESSION: Moderate colonic stool. Mild thickening of the rectosigmoid colon; possibly colitis. SEPSIS Sepsis Screen Date sepsis recognized/suspect: Mar 26, 2025 Time Sepsis recognized/suspect: 511 Recent Procedure: No On Antibiotic Therapy: No Respiratory Rate >20: No Heart Rate >90: No Temp<36 C (96.8 F) or >38.3 C: No SBP <90 or MAP <65 mmHG: No New Acute Mental Status Change: No Is the patient on CPAP, BIPAP,: No Physician Orders Urinalysis (03/26/25 05:20) Blood Culture (03/26/25 05:20) Troponin-I Hs (03/26/25 08:20) Ct Ab Pel Wo Con-No Oral Or Iv (03/26/25 07:19) Vital Signs Date Time Temp Pulse Resp B/P (MAP) Pulse Ox O2 Delivery O2 Flow Rate FiO2 03/26/25 10:05 74 20 151/61 03/26/25 10:00 98.3 74 20 151/61 (91) 96 98.3 03/26/25 10:00 74 20 96 Nasal Cannula* 2 28 03/26/25 05:08 98.1 65 16 124/73 (90) 98 98.1 Laboratory Tests Test 03/26/25 05:56 Lactic Acid Level 0.7 mmol/L (0.4-2.0) White Blood Count 5.0 10^3/uL (4.4-10.8) Medications Medications Dose Ordered Sig/Manoj Route Start Time Stop Time Status Last Admin Dose Admin Morphine Sulfate 4 mg ONCE ONCE IV 03/26/25 06:45 03/26/25 06:46 DC 03/26/25 10:05 4 MG Ondansetron HCl 4 mg ONCE ONCE IV 03/26/25 06:45 03/26/25 06:46 DC 03/26/25 10:04 4 MG Sodium Chloride 1,000 ml @ 1,000 mls/hr Q1H ONCE IV 03/26/25 06:45 03/26/25 07:44 DC 03/26/25 10:14 1,000 MLS/HR Assessment/Plan Assessment/Plan Assessment: Painful urination, Possible UTI due to terminal makeup operator catheter, Generalized weakness, COPD, Hypertension, Neuropathy, GERD, Plan: Admit to Med-Surg, Urine analysis, Urine culture, Blood cultures, Physical therapy evaluation, Fall risk, Breathing treatments as needed, Home medications reconciled, Consider IV antibiotics if patient has UTI, Plan discussed with: Patient Date of Service: Mar 26, 2025 Billing Provider: RHINA ANDERSON Common Visit Codes: [id number] INP/OBS CARE (MOD) RHINA ANDERSON Mar 26, 2025 11:10
[2025-03-26] MEDS: HYDROcodone-ACET 5/325MG TAB PO PRN (13:51)
[2025-03-26] MEDS: SODIUM CHLOR 0.9% PF (SALINE LOCK) 10ML VIAL/SYR IV SCH (14:25)
[2025-03-26] MEDS ORDERED: PRED10TA PO (15:59)
[2025-03-26] MEDS ORDERED: APIX5TAB PO (15:59)
[2025-03-26] MEDS ORDERED: LISI20TA56 PO (15:59)
[2025-03-26] MEDS ORDERED: PANT40TA2 PO (15:59)
[2025-03-26] MEDS ORDERED: CETI1SYP5 PO (15:59)
[2025-03-26] MEDS ORDERED: LORA-1121 PO (15:59)
[2025-03-26] MEDS ORDERED: MELA3TAB42 OR (15:59)
[2025-03-26] MEDS ORDERED: GABA-1250 PO (15:59)
[2025-03-26] MEDS ORDERED: METO-289 PO (15:59)
[2025-03-26] MEDS ORDERED: INSLANTI SC ×2 (15:59)
[2025-03-26] MEDS ORDERED: FERR325T20 PO (15:59)
[2025-03-26] MEDS ORDERED: MULT-1058 PO (15:59)
[2025-03-26] MEDS ORDERED: FLUT1AER3 IN (15:59)
[2025-03-26] MEDS: ALBUTEROL SULF 2.5 MG/0.5ML(0.5%) NEB SOLN NEB PRN (16:50)
[2025-03-26] MEDS: IPRATROPIUM BROM 0.5 MG/2.5ML INH SOL NEB PRN (16:50)
[2025-03-26] MEDS: LORazepam 0.5 MG TAB PO PRN (19:58)
[2025-03-26] MEDS: GABAPENTIN 300 MG CAP PO SCH (21:56)
[2025-03-26] MEDS: MELATONIN 5 MG TAB PO SCH (21:56)
[2025-03-26] MEDS: APIXABAN 5 MG TAB PO SCH (21:56)
[2025-03-26] MEDS: ONDANSETRON HCL 4 MG/2 ML VIAL IV PRN (21:57)
[2025-03-26] MEDS: INSULIN LANTUS (GLARGINE) 1 /0.01ml (100units/ml) SC SCH (22:19)
[2025-03-27] VITALS (13 sets, daily range): BP systolic 110–134; BP diastolic 62–85; PULSE 73–93; RESP 16–20; TEMP 97.2–98.6; O2SAT 94–100
[2025-03-27 05:26] LABS: Urine Protein, UAD Negative (Negative)
[2025-03-27] MEDS: hydroCHLOROthiazide 25 MG TAB PO SCH (06:19)
[2025-03-27 06:30] LABS: Hemoglobin 10.3 g/dL (13.5-17.5)
[2025-03-27 06:33] LABS: Hematocrit 33.2 % (41.0-53.0); Mean Corpuscular Hemoglobin 22.5 pg (28.0-32.0); Mean Corpuscular Volume 72.3 fL (80.0-100.0); Nucleated Red Blood Cells % 0.2 %
[2025-03-27 06:52] LABS: Alanine Aminotransferase 29 U/L (7-40); Albumin 3.5 g/dL (3.2-4.8); Alkaline Phosphatase 60 U/L (46-116); Anion Gap 8 (5-15); BUN/Creatinine Ratio 15.9 (10.0-20.0); Blood Urea Nitrogen 10 mg/dL (9-23); Calcium 9.2 mg/dL (8.7-10.4); Carbon Dioxide 29 mmol/L (20-31); Chloride 103 mmol/L (98-107); Glucose 89 mg/dL (74-106); Potassium 3.9 mmol/L (3.5-5.1); Sodium 140 mmol/L (136-145); Total Protein 6.2 g/dL (5.7-8.2)
[2025-03-27 06:53] LABS: Bilirubin, Total 0.2 mg/dL (0.2-1.0)
[2025-03-27] MEDS: MULTIPLE VITAMINS W/ MINERALS TAB PO SCH (09:58)
[2025-03-27] MEDS: METOPROLOL SUCCINATE XL 50 MG TAB PO SCH (09:58)
[2025-03-27] MEDS: FERROUS SULFATE 325mg EC TAB PO SCH (09:58)
[2025-03-27] MEDS: PANTOPRAZOLE 40 MG TAB PO SCH (09:59)
[2025-03-27] MEDS: LISINOPRIL 20 MG TAB PO SCH (09:59)
[2025-03-27] MEDS: EMPAGLIFLOZIN 10 MG TAB PO SCH (09:59)
[2025-03-27] MEDS: UMECLIDINIUM IN SCH (10:00)
[2025-03-27] MEDS ORDERED: CETIRIZINE HCL PO SCH (10:00)
[2025-03-27] MEDS: FLUTICASONE IN SCH (10:00)
[2025-03-27] MEDS: predniSONE 20 MG TAB PO SCH (10:00)
[2025-03-27] MEDS: VILANTEROL IN SCH (10:00)
[2025-03-27] MEDS: INSULIN LANTUS (GLARGINE) 1 /0.01ml (100units/ml) SC SCH (10:08)
--- NOTE | 2025-03-27 14:31 | DVHDS2 ---
Discharge Summary Date of Admission Mar 26, 2025 at 10:08 Date of Discharge: Mar 27, 2025 Admitting Diagnosis Dysuria Labs/Diagnostic Data: Laboratory Results Test 03/27/25 10:02 03/27/25 04:45 03/27/25 04:20 03/26/25 10:05 POC Glucose 185 mg/dl (70-106) Urine Color Light-yellow (Yellow) Urine Clarity Clear (Clear) Urine pH 5.5 (5.0-9.0) Urine Specific [place] 1.023 (1.001-1.035) Urine Protein Negative (Negative) Urine Ketones 1+ (Negative) Urine Blood Negative /uL (Negative) Urine Nitrite Negative (Negative) Urine Bilirubin Negative (Negative) Urine Urobilinogen Normal mg/dL (Negative) Urine Leukocyte Esterase Negative /uL (Negative) Urine RBC None seen /hpf (0 - 3) Urine Microscopic WBC 6 /HPF (0-3) Urine Squamous Epithelial Cells None seen /hpf (<5) Urine Bacteria None seen /hpf (None Seen) Urine Mucus Few (None Seen) Urine Glucose 4+ mg/dL (Normal) White Blood Count 5.7 10^3/uL (4.4-10.8) Red Blood Count 4.59 10^6/uL (4.5-5.90) Hemoglobin 10.3 g/dL (13.5-17.5) Hematocrit 33.2 % (41.0-53.0) Mean Corpuscular Volume 72.3 fL (80.0-100.0) Mean Corpuscular Hemoglobin 22.5 pg (28.0-32.0) Mean Corpuscular Hemoglobin Concent 31.1 g/dL (32.0-36.0) Red Cell Distribution Width 21.5 % (11.8-14.3) Platelet Count 395 10^3/uL (140-450) Mean Platelet Volume 6.3 fL (6.9-10.8) Neutrophils (%) (Auto) 65.0 % (37.0-80.0) Lymphocytes (%) (Auto) 20.3 % (10.0-50.0) Monocytes (%) (Auto) 11.5 % (0.0-12.0) Eosinophils (%) (Auto) 2.0 % (0.0-7.0) Basophils (%) (Auto) 1.2 % (0.0-2.0) Neutrophils # (Auto) 3.7 10 ^3/uL (1.6-8.6) Lymphocytes # (Auto) 1.2 10 ^3/uL (0.4-5.4) Monocytes # (Auto) 0.7 10 ^3/uL (0-1.3) Eosinophils # (Auto) 0.1 10 ^3/uL (0-0.8) Basophils # (Auto) 0.1 10 ^3/uL (0-0.2) Nucleated Red Blood Cells 0.2 % Sodium Level 140 mmol/L (136-145) Potassium Level 3.9 mmol/L (3.5-5.1) Chloride Level 103 mmol/L (98-107) Carbon Dioxide Level 29 mmol/L (20-31) Anion Gap 8 (5-15) Blood Urea Nitrogen 10 mg/dL (9-23) Creatinine 0.63 mg/dL (0.700-1.30) Glomerular Filtration Rate Calc 99 mL/min (>90) BUN/Creatinine Ratio 15.9 (10.0-20.0) Serum Glucose 89 mg/dL (74-106) Calcium Level 9.2 mg/dL (8.7-10.4) Total Bilirubin 0.2 mg/dL (0.2-1.0) Aspartate Amino Transferase (AST) 29 U/L (13-40) Alanine Aminotransferase (ALT) 29 U/L (7-40) Alkaline Phosphatase 60 U/L (46-116) Total Protein 6.2 g/dL (5.7-8.2) Albumin 3.5 g/dL (3.2-4.8) Troponin I High Sensitivity 4 ng/L (</=54) Test 03/26/25 05:56 Platelet Estimate Adequate Hypochromasia (manual) Moderate Anisocytosis (manual) Slight Microcytosis Moderate Lactic Acid Level 0.7 mmol/L (0.4-2.0) Other Laboratory Tests 03/27/25 04:20 Brief Hx & Hospital Course: History of Present Illness Robert Dillon is a 74-year-old male with past medical history of COPD home oxygen use, hypertension, anxiety, GERD, and neuropathy, who came to the hospital for complaints of painful urination. Patient states he was hospitalized here for about a month, he was then sen to [facility] and has been there for about a month. He had a Miller catheter placed during his hospitalization and removed prior to dishcarge. He states he insisted the catheter be placed once he was at [facility] due to difficulty moving and ambulating from weakness. He now states he has burning and pain due to the catheter, but he doesn't want it out. Course of hospitalization: Patient denies any problems with dysuria at this time. Reviewing previous hospitalization, patient was discharged on both Rezfungin and Zosyn. Patient will be discharged back to [facility] post[facility]acute [facility] and continue previous treatment. CT scan on this admission reveals questionable colitis. Patient has had large bowel movement while in the hospital. Zosyn is adequate coverage for colitis while at the nursing facility. Patient was agreeable with discharge plan. All questions answered. Physical examination General: Alert and Oriented x3. No acute distress. Well-nourished. Eyes: EOMI. Anicteric. HENT: Moist mucous membranes. Lungs: Clear to auscultation bilaterally. No accessory muscle use. Cardiovascular: Regular rate and rhythm. No murmur. No JVD. Abdomen: Soft, non-tender and non-distended. No palpable masses. Extremities: No edema. Non-tender. Skin: No rashes or lesions. Warm. Neurologic: No focal neurological deficits. CN II-XII grossly intact, but not individually tested. Psychiatric: Cooperative. Appropriate mood and affect. Total time spent with patient discussing and formulating plan of care: 35 minutes. This medical document was created using an electronic medical record system with [employer] dictation system. Although this document has been carefully reviewed, there may still be some phonetic and typographical errors. These areas are purely typographical due to imperfections of the software programs, and do not reflect any compromise in the patient's medical care. Condition at Discharge: Guarded Final Diagnosis/Problems List Urea Perisplenic abscess AFib Primary hypertension Dyslipidemia Discharge Disposition: Long-Term Facility Discharge Instruct/Medications Diet: Cardiac 2g Na,low cholest (2 gm sodium, low cholesterol) Activity: No Restrictions, As Tolerated Medications: Continue all previous medications Scheduled Apixaban Base (Eliquis), 5 MG PO BID, (Reported) Cetirizine HCl (Cetirizine HCl), 1 MG PO DAILY, (Reported) Empagliflozin (Jardiance), 1 TAB PO DAILY, (Reported) Ferrous Sulfate (Ferosul), 325 MG PO DAILY, (Reported) Cajbcuocuib-Orytgkfzcaux-Ahuuf (Trelegy Ellipta 100-62.5-25 Mcg/INH), 1 AER IN DAILY, (Reported) Gabapentin (Gabapentin), 3 CAP PO TID, (Reported) Hctz (Hydrochlorothiazide), 0.5 TAB PO QAM, (Reported) Insulin Glargine (Lantus), 10 UNIT SC HS, (Reported) Insulin Glargine (Lantus), 5 UNIT SC DAILY, (Reported) Lisinopril (Lisinopril), 1 TAB PO DAILY, (Reported) Melatonin (Melatonin), 5 MG OR HS, (Reported) Metoprolol Succinate (Metoprolol Succinate Er), 1 TAB PO DAILY, (Reported) Multiple Vitamins W/ Minerals (Multivitamin), 1 TAB PO DAILY, (Reported) Pantoprazole Sodium Sesquihydr (Protonix), 40 MG PO DAILY, (Reported) Prednisone (Prednisone), 20 MG PO DAILY, (Reported) Scheduled PRN Lorazepam (Ativan Tablet), 1 TAB PO TID PRN, (Reported) Oxycodone Hcl (Oxycodone Hcl), 1 TAB PO QIDP PRN, (Reported) 36 Discharge Statement: "Patient was advised to return to the ER or call 911 if any headaches, dizziness, shortness of breath, chest pain, abdominal pain, bleeding, fevers, or worsening of medical condition. Patient was counseled about treatment plan, medications, possible side effects, patientverbalized understanding. All questions were answered to the best of my ability. This discharge took greater then 30 minutes in planning, reviewing documentation, counseling the patient, and discussing with other team members." ASSESSMENT ASSESSMENT Assessment Date of Service: Mar 27, 2025 Billing Provider: DANYELL TRACEY NP Common Visit Codes: [id number] DISCH DAY >30min DANYELL TRACEY NP Mar 27, 2025 14:31
[2025-03-27] MEDS: PIPERACILLIN-TAZOB 3.375GM 100 ML IV SCH (22:18)
[2025-03-28] VITALS (15 sets, daily range): BP systolic 102–128; BP diastolic 53–82; PULSE 59–95; RESP 16–19; TEMP 97.4–99.8; O2SAT 93–100
--- NOTE | 2025-03-28 15:14 | DVHPN2 ---
Subjective Patient denies any symptoms Reviewed: Care Plan, H&P, Labs, Medications Changes from previous H/P or p: No Changes General: Per HPI Eyes: No Pain, No Vision change; Conjunctivae inflammation; No Eyelid inflammation, No Other, No Redness ENT: No Ear pain, No Ear discharge, No Nose pain, No Nose discharge, No Nose congestion, No Mouth pain, No Mouth swelling, No Throat pain, No Throat swelling, No Other Cardiovascular: No Chest Pain, No Palpitations, No Orthopnea, No Paroxysmal Noc. Dyspnea, No Edema, No Lt Headedness, No Other Respiratory: No Cough, No Dry, No Shortness of breath, No SOB with excertion, No Wheezing, No Hemoptysis, No Pleuritic Pain, No Sputum, No Other Gastrointestinal: No Nausea, No Vomiting, No Abdominal Pain, No Diarrhea, No Constipation, No Melena, No Hematochezia, No Other Genitourinary: Dysuria; No Frequency, No Incontinence, No Hematuria, No Retention; Other (Chronic garnica catheter) Musculoskeletal: No other, No neck pain, No shoulder pain, No arm pain, No back pain, No hand pain, No leg pain, No foot pain Skin: No Rash, No Lesions, No Jaundice, No Bruising, No Other Objective Vitals Vital Signs Date Time Temp Pulse Resp B/P (MAP) Pulse Ox O2 Delivery O2 Flow Rate FiO2 03/28/25 12:53 99.8 62 17 102/53 (69) 94 99.8 03/28/25 08:00 Nasal Cannula* 2 28 Intake/Output Intake and Output 03/28/25 07:00 Intake Total 3060 ml Output Total 3400 ml Balance -340 ml Intake Oral 2960 ml IV Total 100 ml Output Urine Total 3400 ml # Bowel Movements 1 General Appearance: Alert, Oriented X3, Cooperative HEENT: Atraumatic, PERRLA Lungs: Clear to auscultation, Normal air movement Cardiovascular: Normal S1, Normal S2 Musculoskeletal: Normal sensory function, Normal motor function Skin: Dry, Intact Psych/Mental Status: Mental status NL, Mood NL Medications Current Medications Medications Dose Ordered Sig/Manoj Route Start Time Stop Time Status Last Admin Dose Admin Sodium Chloride 10 ml Q8HR IV 03/26/25 14:00 03/28/25 14:21 10 ML Acetaminophen/ Hydrocodone Bitart 1 tab Q4HP PRN PO 03/26/25 10:15 03/28/25 11:51 1 TAB Ondansetron HCl 4 mg Q4HP PRN IV 03/26/25 10:15 03/27/25 15:25 4 MG Docusate Sodium 100 mg BIDPRN PRN PO 03/26/25 10:15 Acetaminophen 650 mg Q6HP PRN PO 03/26/25 10:15 Empaglifozin 10 mg DAILY PO 03/27/25 10:00 03/28/25 11:30 10 MG Hydrochlorothiazide 12.5 mg QAM PO 03/27/25 07:00 03/27/25 06:19 12.5 MG Oxycodone HCl 5 mg QIDP PRN PO 03/26/25 15:45 03/28/25 01:37 5 MG Apixaban 5 mg BID PO 03/26/25 22:00 03/28/25 11:33 5 MG Gabapentin 900 mg TID PO 03/26/25 22:00 03/28/25 14:19 900 MG Insulin Glargine 5 units DAILY SC 03/27/25 10:00 03/28/25 11:47 5 UNITS Insulin Glargine 10 units HS SC 03/26/25 22:00 03/27/25 22:33 10 UNITS Lisinopril 20 mg DAILY PO 03/27/25 10:00 03/27/25 09:59 20 MG Lorazepam 1 mg TID PRN PO 03/26/25 16:00 03/28/25 11:51 1 MG Metoprolol Succinate 50 mg DAILY PO 03/27/25 10:00 03/27/25 09:58 50 MG Multivitamins/ Minerals 1 tab DAILY PO 03/27/25 10:00 03/28/25 11:30 1 TAB Patient Own Medication 1 mg DAILY PO 03/27/25 10:00 Hold Ferrous Sulfate 325 mg DAILY PO 03/27/25 10:00 03/28/25 11:30 325 MG Patient Own Medication 1 aer DAILY IN 03/27/25 10:00 Melatonin 5 mg HS PO 03/26/25 22:00 03/27/25 22:31 5 MG Prednisone 20 mg DAILY PO 03/27/25 10:00 03/28/25 11:36 20 MG Ipratropium [place] 0.5 mg Q4HPRN PRN NEB 03/26/25 16:15 03/28/25 06:42 0.5 MG Albuterol 2.5 mg Q4HPRN PRN NEB 03/26/25 16:15 03/28/25 06:42 2.5 MG Piperacillin Sod/ Tazobactam Sod 100 ml @ 25 mls/hr Q8HR IV 03/27/25 22:00 03/28/25 14:19 25 MLS/HR Laboratory Results Laboratory Tests 03/27/25 04:20 Urinalysis Test 03/27/25 04:45 Urine Color Light-yellow (Yellow) Urine Clarity Clear (Clear) Urine pH 5.5 (5.0-9.0) Urine Specific [place] 1.023 (1.001-1.035) Urine Protein Negative (Negative) Urine Ketones 1+ (Negative) H Urine Blood Negative /uL (Negative) Urine Nitrite Negative (Negative) Urine Bilirubin Negative (Negative) Urine Urobilinogen Normal mg/dL (Negative) Urine Leukocyte Esterase Negative /uL (Negative) Urine RBC None seen /hpf (0 - 3) Urine Microscopic WBC 6 /HPF (0-3) H Urine Squamous Epithelial Cells None seen /hpf (<5) Urine Bacteria None seen /hpf (None Seen) Urine Mucus Few (None Seen) Urine Glucose 4+ mg/dL (Normal) H Microbiology Microbiology Date/Time Source Procedure Growth Status 03/26/25 23:55 Nose MRSA Screen - Final Complete 03/26/25 06:05 Blood Blood Culture - Preliminary NO GROWTH AFTER 48 HOURS OF INCUBATION. Resulted Labs and/or images reviewed: Labs reviewed by me, Image(s) reviewed by me Assessment/Plan Assessment/Plan Impression: -dysuria, resolved -UTI ruled out -perisplenic abscess with indwelling drain. Currently being treated outside of the hospital with Zosyn and antifungal -pain medication seeking behavior -AFib -primary hypertension -dyslipidemia Plan: -patient was discharged yesterday. Apparently when transportation showed up to transfer the patient to the SNF patient refused. Patient is currently discharge awaiting for SNF placement to continue previously prescribed antibiotics/antifungal. Awaiting for case management to finalize discharge plan. -continue IV Zosyn -continue anticoagulation -pain management -PUD prophylaxis Total time spent with patient discussing and formulating plan of care: 35 minutes. This medical document was created using an electronic medical record system with Dragon computerized dictation system. Although this document has been carefully reviewed, there may still be some phonetic and typographical errors. These areas are purely typographical due to imperfections of the software programs, and do not reflect any compromise in the patient's medical care. Plan discussed with: Patient, Other (RN) My Orders Orders - DANYELL TRACEY NP Procedure Category Date Status Time Discharge DISCHARGE 03/27/25 Transmitted 16:23 Date of Service: Mar 28, 2025 Billing Provider: DANYELL TRACEY NP Common Visit Codes: [id number] INP/OBS CARE(HIGH) DANYELL TRACEY NP Mar 28, 2025 15:14
[2025-03-29] VITALS (11 sets, daily range): BP systolic 105–134; BP diastolic 64–78; PULSE 64–82; RESP 12–19; TEMP 97.4–98.1; O2SAT 93–100
--- NOTE | 2025-03-29 15:15 | DVHPN2 ---
Subjective Patient denies any symptoms Reviewed: Care Plan, H&P, Labs, Medications Changes from previous H/P or p: No Changes General: Per HPI Eyes: No Pain, No Vision change; Conjunctivae inflammation; No Eyelid inflammation, No Other, No Redness ENT: No Ear pain, No Ear discharge, No Nose pain, No Nose discharge, No Nose congestion, No Mouth pain, No Mouth swelling, No Throat pain, No Throat swelling, No Other Cardiovascular: No Chest Pain, No Palpitations, No Orthopnea, No Paroxysmal Noc. Dyspnea, No Edema, No Lt Headedness, No Other Respiratory: No Cough, No Dry, No Shortness of breath, No SOB with excertion, No Wheezing, No Hemoptysis, No Pleuritic Pain, No Sputum, No Other Gastrointestinal: No Nausea, No Vomiting, No Abdominal Pain, No Diarrhea, No Constipation, No Melena, No Hematochezia, No Other Genitourinary: Dysuria; No Frequency, No Incontinence, No Hematuria, No Retention; Other (Chronic garnica catheter) Musculoskeletal: No other, No neck pain, No shoulder pain, No arm pain, No back pain, No hand pain, No leg pain, No foot pain Skin: No Rash, No Lesions, No Jaundice, No Bruising, No Other Objective Vitals Vital Signs Date Time Temp Pulse Resp B/P (MAP) Pulse Ox O2 Delivery O2 Flow Rate FiO2 03/29/25 15:01 68 18 120/64 100 3.0 03/29/25 13:00 97.5 97.5 03/29/25 08:00 Nasal Cannula* 28 Intake/Output Intake and Output 03/29/25 07:00 Intake Total 3500 ml Output Total 2150 ml Balance 1350 ml Intake Oral 2300 ml IV Total 1200 ml Output Urine Total 2150 ml General Appearance: Alert, Oriented X3, Cooperative HEENT: Atraumatic, PERRLA Lungs: Clear to auscultation, Normal air movement Cardiovascular: Normal S1, Normal S2 Musculoskeletal: Normal sensory function, Normal motor function Skin: Dry, Intact Psych/Mental Status: Mental status NL, Mood NL Medications Current Medications Medications Dose Ordered Sig/Manoj Route Start Time Stop Time Status Last Admin Dose Admin Sodium Chloride 10 ml Q8HR IV 03/26/25 14:00 03/29/25 13:44 10 ML Acetaminophen/ Hydrocodone Bitart 1 tab Q4HP PRN PO 03/26/25 10:15 03/29/25 08:51 1 TAB Ondansetron HCl 4 mg Q4HP PRN IV 03/26/25 10:15 03/29/25 13:43 4 MG Docusate Sodium 100 mg BIDPRN PRN PO 03/26/25 10:15 Acetaminophen 650 mg Q6HP PRN PO 03/26/25 10:15 Empaglifozin 10 mg DAILY PO 03/27/25 10:00 03/29/25 08:49 10 MG Hydrochlorothiazide 12.5 mg QAM PO 03/27/25 07:00 03/27/25 06:19 12.5 MG Oxycodone HCl 5 mg QIDP PRN PO 03/26/25 15:45 03/29/25 13:43 5 MG Apixaban 5 mg BID PO 03/26/25 22:00 03/29/25 08:52 5 MG Gabapentin 900 mg TID PO 03/26/25 22:00 03/29/25 13:43 900 MG Insulin Glargine 5 units DAILY SC 03/27/25 10:00 03/29/25 10:00 5 UNITS Insulin Glargine 10 units HS SC 03/26/25 22:00 03/28/25 21:06 10 UNITS Lisinopril 20 mg DAILY PO 03/27/25 10:00 03/29/25 08:51 20 MG Lorazepam 1 mg TID PRN PO 03/26/25 16:00 03/29/25 08:52 1 MG Metoprolol Succinate 50 mg DAILY PO 03/27/25 10:00 03/29/25 08:50 50 MG Multivitamins/ Minerals 1 tab DAILY PO 03/27/25 10:00 03/29/25 08:51 1 TAB Patient Own Medication 1 mg DAILY PO 03/27/25 10:00 Hold Ferrous Sulfate 325 mg DAILY PO 03/27/25 10:00 03/29/25 08:49 325 MG Patient Own Medication 1 aer DAILY IN 03/27/25 10:00 Melatonin 5 mg HS PO 03/26/25 22:00 03/28/25 21:06 5 MG Prednisone 20 mg DAILY PO 03/27/25 10:00 03/29/25 08:50 20 MG Ipratropium [place] 0.5 mg Q4HPRN PRN NEB 03/26/25 16:15 03/28/25 19:30 0.5 MG Albuterol 2.5 mg Q4HPRN PRN NEB 03/26/25 16:15 03/28/25 19:29 2.5 MG Piperacillin Sod/ Tazobactam Sod 100 ml @ 25 mls/hr Q8HR IV 03/27/25 22:00 03/29/25 13:44 25 MLS/HR Laboratory Results Laboratory Tests 03/27/25 04:20 Urinalysis Test 03/27/25 04:45 Urine Color Light-yellow (Yellow) Urine Clarity Clear (Clear) Urine pH 5.5 (5.0-9.0) Urine Specific [place] 1.023 (1.001-1.035) Urine Protein Negative (Negative) Urine Ketones 1+ (Negative) H Urine Blood Negative /uL (Negative) Urine Nitrite Negative (Negative) Urine Bilirubin Negative (Negative) Urine Urobilinogen Normal mg/dL (Negative) Urine Leukocyte Esterase Negative /uL (Negative) Urine RBC None seen /hpf (0 - 3) Urine Microscopic WBC 6 /HPF (0-3) H Urine Squamous Epithelial Cells None seen /hpf (<5) Urine Bacteria None seen /hpf (None Seen) Urine Mucus Few (None Seen) Urine Glucose 4+ mg/dL (Normal) H Microbiology Microbiology Date/Time Source Procedure Growth Status 03/26/25 23:55 Nose MRSA Screen - Final Complete 03/26/25 06:05 Blood Blood Culture - Preliminary NO GROWTH AFTER 72 HOURS OF INCUBATION. Resulted Labs and/or images reviewed: Labs reviewed by me, Image(s) reviewed by me Assessment/Plan Assessment/Plan Impression: -dysuria, resolved -UTI ruled out -perisplenic abscess with indwelling drain. Currently being treated outside of the hospital with Zosyn and antifungal -pain medication seeking behavior -AFib -primary hypertension -dyslipidemia Plan: -no events overnight. [facility] antibiotic therapy and physical therapy -continue IV Zosyn -continue anticoagulation -pain management -PUD prophylaxis Total time spent with patient discussing and formulating plan of care: 35 minutes. This medical document was created using an electronic medical record system with [employer] dictation system. Although this document has been carefully reviewed, there may still be some phonetic and typographical errors. These areas are purely typographical due to imperfections of the software programs, and do not reflect any compromise in the patient's medical care. Plan discussed with: Patient, Other (RN) My Orders Orders - DANYELL TRACEY NP Procedure Category Date Status Time Discharge DISCHARGE 03/28/25 Transmitted 15:53 * [employer] CONS 03/28/25 Transmitted Consult Date of Service: Mar 29, 2025 Billing Provider: DANYELL TRACEY NP Common Visit Codes: [id number] INP/OBS CARE(HIGH) DANYELL TRACEY NP Mar 29, 2025 15:15
[2025-03-30] VITALS (9 sets, daily range): BP systolic 93–135; BP diastolic 61–74; PULSE 59–87; RESP 17–19; TEMP 97.2–98.2; O2SAT 96–100
--- NOTE | 2025-03-30 15:35 | DVHPN2 ---
Subjective Patient denies any symptoms Reviewed: Care Plan, H&P, Labs, Medications Changes from previous H/P or p: No Changes General: Per HPI Eyes: No Pain, No Vision change, No Eyelid inflammation, No Other, No Redness ENT: No Ear pain, No Ear discharge, No Nose pain, No Nose discharge, No Nose congestion, No Mouth pain, No Mouth swelling, No Throat pain, No Throat swelling, No Other Cardiovascular: No Chest Pain, No Palpitations, No Orthopnea, No Paroxysmal Noc. Dyspnea, No Edema, No Lt Headedness, No Other Respiratory: No Cough, No Dry, No Shortness of breath, No SOB with excertion, No Wheezing, No Hemoptysis, No Pleuritic Pain, No Sputum, No Other Gastrointestinal: No Nausea, No Vomiting, No Abdominal Pain, No Diarrhea, No Constipation, No Melena, No Hematochezia, No Other Genitourinary: Dysuria; No Frequency, No Incontinence, No Hematuria, No Retention; Other (Chronic garnica catheter) Musculoskeletal: No other, No neck pain, No shoulder pain, No arm pain, No back pain, No hand pain, No leg pain, No foot pain Skin: No Rash, No Lesions, No Jaundice, No Bruising, No Other Objective Vitals Vital Signs Date Time Temp Pulse Resp B/P (MAP) Pulse Ox O2 Delivery O2 Flow Rate FiO2 03/30/25 12:45 112/67 (82) 03/30/25 09:05 98.2 68 19 96 98.2 03/30/25 07:30 Nasal Cannula* 2 28 Intake/Output Intake and Output 03/30/25 07:00 Intake Total 1775 ml Output Total 3150 ml Balance -1375 ml Intake Oral 1575 ml IV Total 200 ml Output Urine Total 3150 ml # Bowel Movements 2 General Appearance: Alert, Oriented X3, Cooperative HEENT: Atraumatic, PERRLA Lungs: Clear to auscultation, Normal air movement Cardiovascular: Normal S1, Normal S2 Musculoskeletal: Normal sensory function, Normal motor function Skin: Dry, Intact Psych/Mental Status: Mental status NL, Mood NL Medications Current Medications Medications Dose Ordered Sig/Manoj Route Start Time Stop Time Status Last Admin Dose Admin Sodium Chloride 10 ml Q8HR IV 03/26/25 14:00 03/30/25 12:45 10 ML Acetaminophen/ Hydrocodone Bitart 1 tab Q4HP PRN PO 7/21/25 10:15 03/30/25 09:49 1 TAB Ondansetron HCl 4 mg Q4HP PRN IV 03/26/25 10:15 03/30/25 09:49 4 MG Docusate Sodium 100 mg BIDPRN PRN PO 03/26/25 10:15 Acetaminophen 650 mg Q6HP PRN PO 03/26/25 10:15 Empaglifozin 10 mg DAILY PO 03/27/25 10:00 03/30/25 09:48 10 MG Hydrochlorothiazide 12.5 mg QAM PO 03/27/25 07:00 03/30/25 06:23 12.5 MG Apixaban 5 mg BID PO 03/26/25 22:00 03/30/25 12:39 5 MG Gabapentin 900 mg TID PO 03/26/25 22:00 03/30/25 12:38 900 MG Insulin Glargine 5 units DAILY SC 03/27/25 10:00 03/30/25 09:56 5 UNITS Insulin Glargine 10 units HS SC 03/26/25 22:00 03/29/25 21:17 10 UNITS Lisinopril 20 mg DAILY PO 03/27/25 10:00 03/29/25 08:51 20 MG Lorazepam 1 mg TID PRN PO 03/26/25 16:00 03/30/25 09:49 1 MG Metoprolol Succinate 50 mg DAILY PO 03/27/25 10:00 03/29/25 08:50 50 MG Multivitamins/ Minerals 1 tab DAILY PO 03/27/25 10:00 03/30/25 09:48 1 TAB Patient Own Medication 1 mg DAILY PO 03/27/25 10:00 Hold Ferrous Sulfate 325 mg DAILY PO 03/27/25 10:00 03/30/25 12:37 325 MG Patient Own Medication 1 aer DAILY IN 03/27/25 10:00 Melatonin 5 mg HS PO 03/26/25 22:00 03/29/25 21:13 5 MG Prednisone 20 mg DAILY PO 03/27/25 10:00 03/30/25 09:49 20 MG Ipratropium [place] 0.5 mg Q4HPRN PRN NEB 03/26/25 16:15 03/28/25 19:30 0.5 MG Albuterol 2.5 mg Q4HPRN PRN NEB 03/26/25 16:15 03/28/25 19:29 2.5 MG Piperacillin Sod/ Tazobactam Sod 100 ml @ 25 mls/hr Q8HR IV 03/27/25 22:00 03/30/25 12:44 25 MLS/HR Oxycodone HCl 5 mg Q6HP PRN PO 03/29/25 17:15 03/30/25 12:37 5 MG Laboratory Results Laboratory Tests 03/27/25 04:20 Urinalysis Test 03/27/25 04:45 Urine Color Light-yellow (Yellow) Urine Clarity Clear (Clear) Urine pH 5.5 (5.0-9.0) Urine Specific [place] 1.023 (1.001-1.035) Urine Protein Negative (Negative) Urine Ketones 1+ (Negative) H Urine Blood Negative /uL (Negative) Urine Nitrite Negative (Negative) Urine Bilirubin Negative (Negative) Urine Urobilinogen Normal mg/dL (Negative) Urine Leukocyte Esterase Negative /uL (Negative) Urine RBC None seen /hpf (0 - 3) Urine Microscopic WBC 6 /HPF (0-3) H Urine Squamous Epithelial Cells None seen /hpf (<5) Urine Bacteria None seen /hpf (None Seen) Urine Mucus Few (None Seen) Urine Glucose 4+ mg/dL (Normal) H Microbiology Microbiology Date/Time Source Procedure Growth Status 03/26/25 23:55 Nose MRSA Screen - Final Complete 03/26/25 06:05 Blood Blood Culture - Preliminary NO GROWTH AFTER 72 HOURS OF INCUBATION. Resulted Labs and/or images reviewed: Labs reviewed by me, Image(s) reviewed by me Assessment/Plan Assessment/Plan Impression: -dysuria, resolved -UTI ruled out -perisplenic abscess with indwelling drain. Currently being treated outside of the hospital with Zosyn and antifungal -pain medication seeking behavior -AFib -primary hypertension -dyslipidemia Plan: -no events overnight. Continue efforts to place patient at long-term facility for continued IV antibiotic therapy and physical therapy. No change in a/P on 03/30/2025. -continue IV Zosyn -continue anticoagulation -pain management -physical therapy -PUD prophylaxis Total time spent with patient discussing and formulating plan of care: 35 minutes. This medical document was created using an electronic medical record system with [employer] system. Although this document has been carefully reviewed, there may still be some phonetic and typographical errors. These areas are purely typographical due to imperfections of the software programs, and do not reflect any compromise in the patient's medical care. Plan discussed with: Patient, Other (RN) Date of Service: Mar 30, 2025 Billing Provider: DANYELL TRACEY NP Common Visit Codes: [id number] INP/OBS CARE(MOD) DANYELL TRACEY NP Mar 30, 2025 15:35
[2025-03-31] VITALS (9 sets, daily range): BP systolic 103–125; BP diastolic 63–72; PULSE 73–100; RESP 16–22; TEMP 97.5–98.3; O2SAT 96–100
[2025-03-31 16:55] LABS: Nucleated Red Blood Cells % 0.0 %
[2025-03-31 16:56] LABS: Hematocrit 35.4 % (41.0-53.0); Hemoglobin 11.0 g/dL (13.5-17.5); Mean Corpuscular Hemoglobin 23.4 pg (28.0-32.0); Mean Corpuscular Volume 75.4 fL (80.0-100.0)
[2025-03-31 17:09] LABS: Alanine Aminotransferase 24 U/L (7-40); Albumin 3.9 g/dL (3.2-4.8); Alkaline Phosphatase 65 U/L (46-116); Anion Gap 9 (5-15); BUN/Creatinine Ratio 19.2 (10.0-20.0); Blood Urea Nitrogen 15 mg/dL (9-23); Calcium 9.2 mg/dL (8.7-10.4); Carbon Dioxide 29 mmol/L (20-31); Chloride 98 mmol/L (98-107); Potassium 4.3 mmol/L (3.5-5.1); Sodium 136 mmol/L (136-145); Total Protein 6.7 g/dL (5.7-8.2)
[2025-03-31 17:14] LABS: Bilirubin, Total 0.2 mg/dL (0.2-1.0); Glucose 244 mg/dL (74-106)
--- NOTE | 2025-03-31 18:54 | DVHPN2 ---
Subjective I am assuming the care of the patient from today onwards. Patient is still complaining of penile pain. Reviewed: Care Plan, H&P, Labs, Medications Changes from previous H/P or p: No Changes General: Per HPI Eyes: No Pain, No Vision change, No Eyelid inflammation, No Other, No Redness ENT: No Ear pain, No Ear discharge, No Nose pain, No Nose discharge, No Nose congestion, No Mouth pain, No Mouth swelling, No Throat pain, No Throat swelling, No Other Cardiovascular: No Chest Pain, No Palpitations, No Orthopnea, No Paroxysmal Noc. Dyspnea, No Edema, No Lt Headedness, No Other Respiratory: No Cough, No Dry, No Shortness of breath, No SOB with excertion, No Wheezing, No Hemoptysis, No Pleuritic Pain, No Sputum, No Other Gastrointestinal: No Nausea, No Vomiting, No Abdominal Pain, No Diarrhea, No Constipation, No Melena, No Hematochezia, No Other Genitourinary: Dysuria; No Frequency, No Incontinence, No Hematuria, No Retention; Other (Chronic garnica catheter) Musculoskeletal: No other, No neck pain, No shoulder pain, No arm pain, No back pain, No hand pain, No leg pain, No foot pain Skin: No Rash, No Lesions, No Jaundice, No Bruising, No Other Objective Vitals Vital Signs Date Time Temp Pulse Resp B/P (MAP) Pulse Ox O2 Delivery O2 Flow Rate FiO2 03/31/25 13:00 98.0 100 20 125/72 (89) 96 98.0 03/31/25 09:46 Nasal Cannula* 3 32 Intake/Output Intake and Output 03/31/25 07:00 Intake Total 2400 ml Output Total 2950 ml Balance -550 ml Intake Oral 2200 ml IV Total 200 ml Output Urine Total 2950 ml # Bowel Movements 2 Exam HEENT pupils are reactive Neck is supple CVS S1-S2 regular rate and rhythm Respiratory bilateral clear GI positive bowel sound Extremity no edema 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 General Appearance: Alert, Oriented X3, Cooperative HEENT: Atraumatic, PERRLA Lungs: Clear to auscultation, Normal air movement Cardiovascular: Normal S1, Normal S2 Musculoskeletal: Normal sensory function, Normal motor function Skin: Dry, Intact Psych/Mental Status: Mental status NL, Mood NL Medications Current Medications Medications Dose Ordered Sig/Manoj Route Start Time Stop Time Status Last Admin Dose Admin Sodium Chloride 10 ml Q8HR IV 03/26/25 14:00 03/31/25 11:38 10 ML Acetaminophen/ Hydrocodone Bitart 1 tab Q4HP PRN PO 03/26/25 10:15 03/31/25 14:21 1 TAB Ondansetron HCl 4 mg Q4HP PRN IV 03/26/25 10:15 03/31/25 06:15 4 MG Docusate Sodium 100 mg BIDPRN PRN PO 03/26/25 10:15 Acetaminophen 650 mg Q6HP PRN PO 03/26/25 10:15 Empaglifozin 10 mg DAILY PO 03/27/25 10:00 03/31/25 09:41 10 MG Hydrochlorothiazide 12.5 mg QAM PO 03/27/25 07:00 03/31/25 06:10 12.5 MG Apixaban 5 mg BID PO 03/26/25 22:00 03/31/25 09:41 5 MG Gabapentin 900 mg TID PO 03/26/25 22:00 03/31/25 13:25 900 MG Insulin Glargine 5 units DAILY SC 03/27/25 10:00 03/31/25 11:38 5 UNITS Insulin Glargine 10 units HS SC 03/26/25 22:00 03/30/25 21:35 10 UNITS Lisinopril 20 mg DAILY PO 03/27/25 10:00 03/29/25 08:51 20 MG Lorazepam 1 mg TID PRN PO 03/26/25 16:00 03/31/25 14:21 1 MG Metoprolol Succinate 50 mg DAILY PO 03/27/25 10:00 03/29/25 08:50 50 MG Multivitamins/ Minerals 1 tab DAILY PO 03/27/25 10:00 03/31/25 12:17 1 TAB Patient Own Medication 1 mg DAILY PO 03/27/25 10:00 Hold Ferrous Sulfate 325 mg DAILY PO 03/27/25 10:00 03/31/25 09:41 325 MG Patient Own Medication 1 aer DAILY IN 03/27/25 10:00 Melatonin 5 mg HS PO 03/26/25 22:00 03/30/25 20:55 5 MG Prednisone 20 mg DAILY PO 03/27/25 10:00 03/31/25 09:41 20 MG Ipratropium [place] 0.5 mg Q4HPRN PRN NEB 03/26/25 16:15 03/31/25 09:46 0.5 MG Albuterol 2.5 mg Q4HPRN PRN NEB 03/26/25 16:15 03/31/25 09:46 2.5 MG Piperacillin Sod/ Tazobactam Sod 100 ml @ 25 mls/hr Q8HR IV 03/27/25 22:00 03/31/25 13:26 25 MLS/HR Oxycodone HCl 5 mg Q6HP PRN PO 03/29/25 17:15 03/31/25 12:18 5 MG Laboratory Results Laboratory Tests 03/31/25 16:00 Chemistry Test 03/31/25 16:00 Albumin 3.9 g/dL (3.2-4.8) Calcium Level 9.2 mg/dL (8.7-10.4) Total Protein 6.7 g/dL (5.7-8.2) LFT Test 03/31/25 16:00 Alanine Aminotransferase (ALT) 24 U/L (7-40) Alkaline Phosphatase 65 U/L (46-116) Aspartate Amino Transferase (AST) 18 U/L (13-40) Total Bilirubin 0.2 mg/dL (0.2-1.0) Urinalysis Test 03/27/25 04:45 Urine Color Light-yellow (Yellow) Urine Clarity Clear (Clear) Urine pH 5.5 (5.0-9.0) Urine Specific [place] 1.023 (1.001-1.035) Urine Protein Negative (Negative) Urine Ketones 1+ (Negative) H Urine Blood Negative /uL (Negative) Urine Nitrite Negative (Negative) Urine Bilirubin Negative (Negative) Urine Urobilinogen Normal mg/dL (Negative) Urine Leukocyte Esterase Negative /uL (Negative) Urine RBC None seen /hpf (0 - 3) Urine Microscopic WBC 6 /HPF (0-3) H Urine Squamous Epithelial Cells None seen /hpf (<5) Urine Bacteria None seen /hpf (None Seen) Urine Mucus Few (None Seen) Urine Glucose 4+ mg/dL (Normal) H Microbiology Microbiology Date/Time Source Procedure Growth Status 03/26/25 23:55 Nose MRSA Screen - Final Complete 03/26/25 06:05 Blood Blood Culture - Final NO GROWTH AFTER 5 DAYS OF INCUBATION. Complete Assessment/Plan Assessment/Plan 74-year-old male with a known history of COPD, chronic respiratory failure on home O2, AFib currently on Eliquis, hypertension, dyslipidemia, perisplenic is obsessed with the indwelling drain currently on Zosyn initially admitted to the hospital with a benign pain and dysuria found to have 1. Penile pain with a dysuria, UTI has been ruled out 2. Paroxysmal AFib currently on Eliquis and beta jefferson 3. Perisplenic abscess status post indwelling drain currently on IV antibiotics 4. Hypertension 5. Dyslipidemia -continue IV antibiotics, discharge plan to correction facility, social and political studies professor on board. SNF bed awaited. Plan discussed with: Patient Date of Service: Mar 31, 2025 Billing Provider: LANNY BOLES MD Common Visit Codes: [id number] INP/OBS CARE(MOD) LANNY BOLES MD Mar 31, 2025 18:54
[2025-04-01] VITALS (11 sets, daily range): BP systolic 109–117; BP diastolic 63–74; PULSE 68–80; RESP 17–19; TEMP 97.7–98.2; O2SAT 95–98
[2025-04-01] MEDS: DOCUSATE SOD 100 MG CAP PO PRN (06:03)
[2025-04-01] MEDS: HYDROcodone-ACET 10/325MG TAB PO PRN (13:13)
--- NOTE | 2025-04-01 15:28 | DVHPN2 ---
Subjective Patient is still complaining of penile pain. He is asking for pain medications. Reviewed: Care Plan, H&P, Labs, Medications Changes from previous H/P or p: No Changes General: Per HPI Eyes: No Pain, No Vision change, No Eyelid inflammation, No Other, No Redness ENT: No Ear pain, No Ear discharge, No Nose pain, No Nose discharge, No Nose congestion, No Mouth pain, No Mouth swelling, No Throat pain, No Throat swelling, No Other Cardiovascular: No Chest Pain, No Palpitations, No Orthopnea, No Paroxysmal Noc. Dyspnea, No Edema, No Lt Headedness, No Other Respiratory: No Cough, No Dry, No Shortness of breath, No SOB with excertion, No Wheezing, No Hemoptysis, No Pleuritic Pain, No Sputum, No Other Gastrointestinal: No Nausea, No Vomiting, No Abdominal Pain, No Diarrhea, No Constipation, No Melena, No Hematochezia, No Other Genitourinary: Dysuria; No Frequency, No Incontinence, No Hematuria, No Retention; Other (Chronic garnica catheter) Musculoskeletal: No other, No neck pain, No shoulder pain, No arm pain, No back pain, No hand pain, No leg pain, No foot pain Skin: No Rash, No Lesions, No Jaundice, No Bruising, No Other Objective Vitals Vital Signs Date Time Temp Pulse Resp B/P (MAP) Pulse Ox O2 Delivery O2 Flow Rate FiO2 04/01/25 12:31 97.7 68 17 115/70 (85) 98 97.7 04/01/25 09:09 3.0 04/01/25 07:30 Nasal Cannula* 32 Intake/Output Intake and Output 04/01/25 07:00 Intake Total 2150 ml Output Total 3500 ml Balance -1350 ml Intake Oral 1850 ml IV Total 300 ml Output Urine Total 3500 ml # Bowel Movements 2 Exam HEENT pupils are reactive Neck is supple CVS S1-S2 regular rate and rhythm Respiratory bilateral clear GI positive bowel sound Extremity no 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 General Appearance: Alert, Oriented X3, Cooperative HEENT: Atraumatic, PERRLA Lungs: Clear to auscultation, Normal air movement Cardiovascular: Normal S1, Normal S2 Musculoskeletal: Normal sensory function, Normal motor function Skin: Dry, Intact Psych/Mental Status: Mental status NL, Mood NL Medications Current Medications Medications Dose Ordered Sig/Manoj Route Start Time Stop Time Status Last Admin Dose Admin Sodium Chloride 10 ml Q8HR IV 03/26/25 14:00 04/01/25 14:04 10 ML Ondansetron HCl 4 mg Q4HP PRN IV 03/26/25 10:15 04/01/25 14:50 4 MG Docusate Sodium 100 mg BIDPRN PRN PO 03/26/25 10:15 04/01/25 14:50 100 MG Acetaminophen 650 mg Q6HP PRN PO 03/26/25 10:15 Empaglifozin 10 mg DAILY PO 03/27/25 10:00 04/01/25 10:42 10 MG Hydrochlorothiazide 12.5 mg QAM PO 03/27/25 07:00 04/01/25 06:02 12.5 MG Apixaban 5 mg BID PO 03/26/25 22:00 04/01/25 10:43 5 MG Gabapentin 900 mg TID PO 03/26/25 22:00 04/01/25 13:13 900 MG Insulin Glargine 5 units DAILY SC 03/27/25 10:00 04/01/25 10:50 5 UNITS Insulin Glargine 10 units HS SC 03/26/25 22:00 03/31/25 22:21 10 UNITS Lisinopril 20 mg DAILY PO 03/27/25 10:00 03/29/25 08:51 20 MG Lorazepam 1 mg TID PRN PO 03/26/25 16:00 04/01/25 14:49 1 MG Metoprolol Succinate 50 mg DAILY PO 03/27/25 10:00 03/29/25 08:50 50 MG Multivitamins/ Minerals 1 tab DAILY PO 03/27/25 10:00 04/01/25 10:42 1 TAB Patient Own Medication 1 mg DAILY PO 03/27/25 10:00 Hold Ferrous Sulfate 325 mg DAILY PO 03/27/25 10:00 04/01/25 10:42 325 MG Patient Own Medication 1 aer DAILY IN 03/27/25 10:00 04/01/25 14:03 1 AER Melatonin 5 mg HS PO 03/26/25 22:00 03/31/25 21:39 5 MG Prednisone 20 mg DAILY PO 03/27/25 10:00 04/01/25 10:42 20 MG Ipratropium [place] 0.5 mg Q4HPRN PRN NEB 03/26/25 16:15 03/31/25 09:46 0.5 MG Albuterol 2.5 mg Q4HPRN PRN NEB 03/26/25 16:15 03/31/25 09:46 2.5 MG Piperacillin Sod/ Tazobactam Sod 100 ml @ 25 mls/hr Q8HR IV 03/27/25 22:00 04/01/25 13:12 25 MLS/HR Acetaminophen/ Hydrocodone Bitart 1 tab Q6HP PRN PO 03/31/25 19:00 04/01/25 13:13 1 TAB Oxycodone HCl 10 mg Q6HPRN PRN PO 03/31/25 19:00 04/01/25 14:49 10 MG Laboratory Results Laboratory Tests 03/31/25 16:00 Chemistry Test 03/31/25 16:00 Albumin 3.9 g/dL (3.2-4.8) Calcium Level 9.2 mg/dL (8.7-10.4) Total Protein 6.7 g/dL (5.7-8.2) LFT Test 03/31/25 16:00 Alanine Aminotransferase (ALT) 24 U/L (7-40) Alkaline Phosphatase 65 U/L (46-116) Aspartate Amino Transferase (AST) 18 U/L (13-40) Total Bilirubin 0.2 mg/dL (0.2-1.0) Urinalysis Test 03/27/25 04:45 Urine Color Light-yellow (Yellow) Urine Clarity Clear (Clear) Urine pH 5.5 (5.0-9.0) Urine Specific [place] 1.023 (1.001-1.035) Urine Protein Negative (Negative) Urine Ketones 1+ (Negative) H Urine Blood Negative /uL (Negative) Urine Nitrite Negative (Negative) Urine Bilirubin Negative (Negative) Urine Urobilinogen Normal mg/dL (Negative) Urine Leukocyte Esterase Negative /uL (Negative) Urine RBC None seen /hpf (0 - 3) Urine Microscopic WBC 6 /HPF (0-3) H Urine Squamous Epithelial Cells None seen /hpf (<5) Urine Bacteria None seen /hpf (None Seen) Urine Mucus Few (None Seen) Urine Glucose 4+ mg/dL (Normal) H Microbiology Microbiology Date/Time Source Procedure Growth Status 03/26/25 23:55 Nose MRSA Screen - Final Complete 7/21/25 06:05 Blood Blood Culture - Final NO GROWTH AFTER 5 DAYS OF INCUBATION. Complete Assessment/Plan Assessment/Plan 74-year-old male with a known history of COPD, chronic respiratory failure on home O2, AFib currently on Eliquis, hypertension, dyslipidemia, perisplenic is obsessed with the indwelling drain currently on Zosyn initially admitted to the hospital with a benign pain and dysuria found to have 1. Penile pain with a dysuria, UTI has been ruled out 2. Paroxysmal AFib currently on Eliquis and beta jefferson 3. Perisplenic abscess status post indwelling drain currently on IV antibiotics 4. Hypertension 5. Dyslipidemia -continue IV antibiotics, discharge plan to [facility] facility, executive secretary social welfare on board. SNF bed awaited. Plan discussed with: Patient My Orders Orders - LANNY BOLES MD Procedure Category Date Status Time Hydrocodone-Acet PHA 03/31/25 In Process 10/325mg Tab ([place] 19:00 Oxycodone Immediate PHA 03/31/25 In Process Rel Tablet 19:00 Date of Service: Apr 01, 2025 Billing Provider: LANNY BOLES MD Common Visit Codes: [id number] INP/OBS CARE(MOD) LANNY BOLES MD Apr 01, 2025 15:28
[2025-04-02] VITALS (9 sets, daily range): BP systolic 94–138; BP diastolic 59–96; PULSE 57–98; RESP 18–20; TEMP 97.6–98.2; O2SAT 91–97
[2025-04-02] MEDS: THROAT LOZENGES(CEPASTAT) MT PRN (17:54)
[2025-04-03] VITALS (13 sets, daily range): BP systolic 95–119; BP diastolic 50–72; PULSE 55–88; RESP 16–20; TEMP 97.6–98.1; O2SAT 91–100
[2025-04-03] MEDS: SODIUM CHLORIDE 0.9% 500 ML IV ONE (12:01)
--- NOTE | 2025-04-03 17:59 | DVHPN2 ---
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 Reviewed: Care Plan, H&P, Labs, Medications Changes from previous H/P or p: No Changes General: Per HPI Eyes: No Pain, No Vision change, No Eyelid inflammation, No Other, No Redness ENT: No Ear pain, No Ear discharge, No Nose pain, No Nose discharge, No Nose congestion, No Mouth pain, No Mouth swelling, No Throat pain, No Throat swelling, No Other Cardiovascular: No Chest Pain, No Palpitations, No Orthopnea, No Paroxysmal Noc. Dyspnea, No Edema, No Lt Headedness, No Other Respiratory: No Cough, No Dry, No Shortness of breath, No SOB with excertion, No Wheezing, No Hemoptysis, No Pleuritic Pain, No Sputum, No Other Gastrointestinal: No Nausea, No Vomiting, No Abdominal Pain, No Diarrhea, No Constipation, No Melena, No Hematochezia, No Other Genitourinary: Dysuria; No Frequency, No Incontinence, No Hematuria, No Retention; Other (Chronic garnica catheter) Musculoskeletal: No other, No neck pain, No shoulder pain, No arm pain, No back pain, No hand pain, No leg pain, No foot pain Skin: No Rash, No Lesions, No Jaundice, No Bruising, No Other Objective Vitals Vital Signs Date Time Temp Pulse Resp B/P (MAP) Pulse Ox O2 Delivery O2 Flow Rate FiO2 04/03/25 16:30 98.1 81 18 100/66 (77) 95 98.1 04/03/25 08:00 Nasal Cannula* 3 32 Intake/Output Intake and Output 04/03/25 07:00 Intake Total 1636 ml Output Total 2800 ml Balance -1164 ml Intake Oral 1336 ml IV Total 300 ml Output Urine Total 2800 ml Exam HEENT pupils are reactive Neck is supple CVS S1-S2 regular rate and rhythm Respiratory bilateral clear GI positive bowel sound 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 General Appearance: Alert, Oriented X3, Cooperative HEENT: Atraumatic, PERRLA Lungs: Clear to auscultation, Normal air movement Cardiovascular: Normal S1, Normal S2 Musculoskeletal: Normal sensory function, Normal motor function Skin: Dry, Intact Psych/Mental Status: Mental status NL, Mood NL Medications Current Medications Medications Dose Ordered Sig/Manoj Route Start Time Stop Time Status Last Admin Dose Admin Sodium Chloride 10 ml Q8HR IV 7/21/25 14:00 04/03/25 13:59 10 ML Ondansetron HCl 4 mg Q4HP PRN IV 03/26/25 10:15 04/03/25 12:12 4 MG Docusate Sodium 100 mg BIDPRN PRN PO 03/26/25 10:15 04/02/25 06:32 100 MG Acetaminophen 650 mg Q6HP PRN PO 03/26/25 10:15 Empaglifozin 10 mg DAILY PO 03/27/25 10:00 04/03/25 08:51 10 MG Hydrochlorothiazide 12.5 mg QAM PO 03/27/25 07:00 04/03/25 05:57 12.5 MG Apixaban 5 mg BID PO 03/26/25 22:00 04/03/25 08:51 5 MG Gabapentin 900 mg TID PO 03/26/25 22:00 04/03/25 13:59 900 MG Insulin Glargine 5 units DAILY SC 03/27/25 10:00 04/03/25 11:29 5 UNITS Insulin Glargine 10 units HS SC 03/26/25 22:00 04/02/25 21:51 10 UNITS Lisinopril 20 mg DAILY PO 03/27/25 10:00 04/02/25 10:29 20 MG Lorazepam 1 mg TID PRN PO 03/26/25 16:00 04/03/25 05:56 1 MG Metoprolol Succinate 50 mg DAILY PO 03/27/25 10:00 04/02/25 10:28 50 MG Multivitamins/ Minerals 1 tab DAILY PO 03/27/25 10:00 04/03/25 08:51 1 TAB Patient Own Medication 1 mg DAILY PO 03/27/25 10:00 Hold Ferrous Sulfate 325 mg DAILY PO 03/27/25 10:00 04/03/25 08:51 325 MG Patient Own Medication 1 aer DAILY IN 03/27/25 10:00 04/01/25 14:03 1 AER Melatonin 5 mg HS PO 03/26/25 22:00 03/31/25 21:39 5 MG Prednisone 20 mg DAILY PO 03/27/25 10:00 04/03/25 08:51 20 MG Ipratropium [place] 0.5 mg Q4HPRN PRN NEB 03/26/25 16:15 04/03/25 07:38 0.5 MG Albuterol 2.5 mg Q4HPRN PRN NEB 03/26/25 16:15 04/03/25 07:38 2.5 MG Piperacillin Sod/ Tazobactam Sod 100 ml @ 25 mls/hr Q8HR IV 03/27/25 22:00 04/03/25 13:58 25 MLS/HR Acetaminophen/ Hydrocodone Bitart 1 tab Q6HP PRN PO 03/31/25 19:00 04/03/25 13:59 1 TAB Oxycodone HCl 10 mg Q6HPRN PRN PO 03/31/25 19:00 04/03/25 17:37 10 MG Throat Lozenges 1 rober Q2HP PRN MT 04/02/25 16:30 04/03/25 04:23 1 ROBER Laboratory Results Laboratory Tests 03/31/25 16:00 Urinalysis Test 03/27/25 04:45 Urine Color Light-yellow (Yellow) Urine Clarity Clear (Clear) Urine pH 5.5 (5.0-9.0) Urine Specific [place] 1.023 (1.001-1.035) Urine Protein Negative (Negative) Urine Ketones 1+ (Negative) H Urine Blood Negative /uL (Negative) Urine Nitrite Negative (Negative) Urine Bilirubin Negative (Negative) Urine Urobilinogen Normal mg/dL (Negative) Urine Leukocyte Esterase Negative /uL (Negative) Urine RBC None seen /hpf (0 - 3) Urine Microscopic WBC 6 /HPF (0-3) H Urine Squamous Epithelial Cells None seen /hpf (<5) Urine Bacteria None seen /hpf (None Seen) Urine Mucus Few (None Seen) Urine Glucose 4+ mg/dL (Normal) H Microbiology Microbiology Date/Time Source Procedure Growth Status 03/26/25 23:55 Nose MRSA Screen - Final Complete 03/26/25 06:05 Blood Blood Culture - Final NO GROWTH AFTER 5 DAYS OF INCUBATION. Complete Assessment/Plan Assessment/Plan 74-year-old male with a known history of COPD, chronic respiratory failure on home O2, AFib currently on Eliquis, hypertension, dyslipidemia, perisplenic is obsessed with the indwelling drain currently on Zosyn initially admitted to the hospital with a benign pain and dysuria found to have 1. Penile pain with a dysuria, UTI has been ruled out 2. Paroxysmal AFib currently on Eliquis and beta ejfferson 3. Perisplenic abscess status post indwelling drain currently on IV antibiotics 4. Hypertension 5. Dyslipidemia -continue IV antibiotics, [facility] to [facility], child welfare social worker on board. SNF bed awaited. 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
[2025-04-03] MEDS: MICAFUNGIN SODIUM 100 MG in SODIUM CHL 0.9% 100 ML IV ONE (19:23)
[2025-04-03 19:56] LABS: Potassium 4.9 mmol/L (3.5-5.1); Sodium 136 mmol/L (136-145)
[2025-04-03 19:57] LABS: Anion Gap 5 (5-15)
[2025-04-03 19:58] LABS: Calcium 9.5 mg/dL (8.7-10.4)
[2025-04-03 20:02] LABS: BUN/Creatinine Ratio 23.2 (10.0-20.0)
[2025-04-03 20:08] LABS: Blood Urea Nitrogen 23 mg/dL (9-23); Carbon Dioxide 35 mmol/L (20-31); Chloride 96 mmol/L (98-107); Glucose 222 mg/dL (74-106)
[2025-04-04] VITALS (7 sets, daily range): BP systolic 101–144; BP diastolic 55–88; PULSE 69–84; RESP 17–18; TEMP 97.5–98.2; O2SAT 93–97
[2025-04-04 08:36] LABS: Anion Gap 6 (5-15); Potassium 4.0 mmol/L (3.5-5.1); Sodium 138 mmol/L (136-145)
[2025-04-04 08:37] LABS: Calcium 9.8 mg/dL (8.7-10.4)
[2025-04-04 08:38] LABS: Carbon Dioxide 35 mmol/L (20-31); Chloride 97 mmol/L (98-107)
[2025-04-04 08:42] LABS: BUN/Creatinine Ratio 21.1 (10.0-20.0); Blood Urea Nitrogen 16 mg/dL (9-23); Glucose 90 mg/dL (74-106)
--- NOTE | 2025-04-04 15:01 | DVHDS2 ---
Discharge Summary Date of Admission Mar 26, 2025 at 10:08 Date of Discharge: Apr 04, 2025 Labs/Diagnostic Data: Laboratory Results Test 04/04/25 10:17 04/04/25 07:50 03/31/25 16:00 03/27/25 04:45 POC Glucose 154 mg/dl (70-106) Sodium Level 138 mmol/L (136-145) Potassium Level 4.0 mmol/L (3.5-5.1) Chloride Level 97 mmol/L (98-107) Carbon Dioxide Level 35 mmol/L (20-31) Anion Gap 6 (5-15) Blood Urea Nitrogen 16 mg/dL (9-23) Creatinine 0.76 mg/dL (0.700-1.30) Glomerular Filtration Rate Calc 94 mL/min (>90) BUN/Creatinine Ratio 21.1 (10.0-20.0) Serum Glucose 90 mg/dL (74-106) Calcium Level 9.8 mg/dL (8.7-10.4) White Blood Count 7.9 10^3/uL (4.4-10.8) Red Blood Count 4.70 10^6/uL (4.5-5.90) Hemoglobin 11.0 g/dL (13.5-17.5) Hematocrit 35.4 % (41.0-53.0) Mean Corpuscular Volume 75.4 fL (80.0-100.0) Mean Corpuscular Hemoglobin 23.4 pg (28.0-32.0) Mean Corpuscular Hemoglobin Concent 31.0 g/dL (32.0-36.0) Red Cell Distribution Width 21.6 % (11.8-14.3) Platelet Count 408 10^3/uL (140-450) Mean Platelet Volume 6.3 fL (6.9-10.8) Neutrophils (%) (Auto) 86.3 % (37.0-80.0) Lymphocytes (%) (Auto) 9.1 % (10.0-50.0) Monocytes (%) (Auto) 3.7 % (0.0-12.0) Eosinophils (%) (Auto) 0.2 % (0.0-7.0) Basophils (%) (Auto) 0.7 % (0.0-2.0) Neutrophils # (Auto) 6.9 10 ^3/uL (1.6-8.6) Lymphocytes # (Auto) 0.7 10 ^3/uL (0.4-5.4) Monocytes # (Auto) 0.3 10 ^3/uL (0-1.3) Eosinophils # (Auto) 0 10 ^3/uL (0-0.8) Basophils # (Auto) 0.1 10 ^3/uL (0-0.2) Nucleated Red Blood Cells 0.0 % Total Bilirubin 0.2 mg/dL (0.2-1.0) Aspartate Amino Transferase (AST) 18 U/L (13-40) Alanine Aminotransferase (ALT) 24 U/L (7-40) Alkaline Phosphatase 65 U/L (46-116) Total Protein 6.7 g/dL (5.7-8.2) Albumin 3.9 g/dL (3.2-4.8) Urine Color Light-yellow (Yellow) Urine Clarity Clear (Clear) Urine pH 5.5 (5.0-9.0) Urine Specific Wickes 1.023 (1.001-1.035) Urine Protein Negative (Negative) Urine Ketones 1+ (Negative) Urine Blood Negative /uL (Negative) Urine Nitrite Negative (Negative) Urine Bilirubin Negative (Negative) Urine Urobilinogen Normal mg/dL (Negative) Urine Leukocyte Esterase Negative /uL (Negative) Urine RBC None seen /hpf (0 - 3) Urine Microscopic WBC 6 /HPF (0-3) Urine Squamous Epithelial Cells None seen /hpf (<5) Urine Bacteria None seen /hpf (None Seen) Urine Mucus Few (None Seen) Urine Glucose 4+ mg/dL (Normal) Test 03/26/25 10:05 03/26/25 05:56 Troponin I High Sensitivity 4 ng/L (</=54) Platelet Estimate Adequate Hypochromasia (manual) Moderate Anisocytosis (manual) Slight Microcytosis Moderate Lactic Acid Level 0.7 mmol/L (0.4-2.0) Other Laboratory Tests 04/04/25 07:50 03/31/25 16:00 Brief Hx & Hospital Course: 74-year-old male with a known history of COPD, chronic respiratory failure on home O2, AFib currently on Eliquis, hypertension, dyslipidemia, BARIATRIC SURGERY, PERISPLENIC ABSCESS STATUS POST IR DRAINAGE RECENTLY with the indwelling drain currently on Zosyn initially admitted to the hospital with a PENILE pain and dysuria , EVENTUALLY [employer] CATHETER WAS REPLACED. PATIENT'S UTI HAS BEEN RULED OUT. PATIENT DOES HAVE KNOWN HISTORY OF PERISPLENIC ABSCESS STATUS POST RECENT IR DRAINAGE WITH INDWELLING DRAIN CURRENTLY ON IV ANTIBIOTICS AND IV ANTIFUNGAL. PATIENT STOP DATE FOR ANTIBIOTICS AND ANTIFUNGAL IS APRIL 15, 2025. PATIENT IS BEING DISCHARGED TO RETIREMENT FACILITY FOR IV ANTIBIOTICS ANTIFUNGAL AND PHYSICAL THERAPY AND PAIN MANAGEMENT. Condition at Discharge: Stable Final Diagnosis/Problems List 74-year-old male with a known history of COPD, chronic respiratory failure on home O2, AFib currently on Eliquis, hypertension, dyslipidemia, perisplenic is obsessed with the indwelling drain currently on Zosyn initially admitted to the hospital with a benign pain and dysuria found to have 1. Penile pain with a dysuria, UTI has been ruled out 2. Paroxysmal AFib currently on Eliquis and beta jefferson 3. Perisplenic abscess status post indwelling drain currently on IV antibiotics 4. Hypertension 5. Dyslipidemia Discharge Disposition: Residential Facility SNF Discharge Will this Physician continue t: No Discharge Instruct/Medications Diet: Cardiac 2g Na,low cholest (2 gm sodium, low cholesterol) Activity: No Restrictions, As Tolerated Follow Up/Referral: PCP in one week Follow up with Dr. Ahsan tsang in one week Medications: Continue all previous medications Continue current antimicrobial course as recommended by Dr. Ahsan Tsang on recent admission: Minnie Fungitell 200 mg once a week x2 doses Zosyn 13.5 g continuously via PICC line Weekly CMP, CBC. Fax results to [phone], Dr. Tsang. Continue IV antibiotic therapy until 04/09/2025 then discontinue PICC line Follow up with infectious disease clinic two weeks thereafter. [id number] Scheduled Apixaban Base (Eliquis), 5 MG PO BID, (Reported) Cetirizine HCl (Cetirizine HCl), 1 MG PO DAILY, (Reported) Empagliflozin (Jardiance), 1 TAB PO DAILY, (Reported) Ferrous Sulfate (Ferosul), 325 MG PO DAILY, (Reported) Zsambgmvvlz-Cuhilsixyrxd-Eagnw (Trelegy Ellipta 100-62.5-25 Mcg/INH), 1 AER IN DAILY, (Reported) Gabapentin (Gabapentin), 3 CAP PO TID, (Reported) Hctz (Hydrochlorothiazide), 0.5 TAB PO QAM, (Reported) Insulin Glargine (Lantus), 10 UNIT SC HS, (Reported) Insulin Glargine (Lantus), 5 UNIT SC DAILY, (Reported) Lisinopril (Lisinopril), 1 TAB PO DAILY, (Reported) Melatonin (Melatonin), 5 MG OR HS, (Reported) Metoprolol Succinate (Metoprolol Succinate Er), 1 TAB PO DAILY, (Reported) Multiple Vitamins W/ Minerals (Multivitamin), 1 TAB PO DAILY, (Reported) Pantoprazole Sodium Sesquihydr (Protonix), 40 MG PO DAILY, (Reported) Prednisone (Prednisone), 20 MG PO DAILY, (Reported) Scheduled PRN Lorazepam (Ativan Tablet), 1 TAB PO TID PRN, (Reported) Oxycodone Hcl (Oxycodone Hcl), 1 TAB PO QIDP PRN, (Reported) Discharge Statement: "Patient was advised to return to the ER or call 911 if any headaches, dizziness, shortness of breath, chest pain, abdominal pain, bleeding, fevers, or worsening of medical condition. Patient was counseled about treatment plan, medications, possible side effects, patientverbalized understanding. All questions were answered to the best of my ability. This discharge took greater then 30 minutes in planning, reviewing documentation, counseling the patient, and discussing with other team members." ASSESSMENT ASSESSMENT Assessment 74-year-old male with a known history of COPD, chronic respiratory failure on home O2, AFib currently on Eliquis, hypertension, dyslipidemia, perisplenic is obsessed with the indwelling drain currently on Zosyn initially admitted to the hospital with a benign pain and dysuria found to have 1. Penile pain with a dysuria, UTI has been ruled out 2. Paroxysmal AFib currently on Eliquis and beta jefferson 3. Perisplenic abscess status post indwelling drain currently on IV antibiotics 4. Hypertension 5. Dyslipidemia Date of Service: Apr 04, 2025 Billing Provider: LANNY BOLES MD Common Visit Codes: 84253-VYS/OBS DISCH DAY >30min LANNY BOLES MD Apr 04, 2025 15:01
[2025-04-04] MEDS ORDERED: MICAFUNGIN SODIUM 100 MG in SODIUM CHL 0.9% 100 ML IV SCH (18:00)
== END 2025-04-04 14:57 | DRG 729 ==
LOC: ER 05:00 → EDBD 05:00 → OVERFLOW 10:08 → WEST WING 15:44
PROVIDERS: ADMIT Internal Medicine; ATTEND Internal Medicine
DX: N48.89 Other specified disorders of penis (principal); J96.10 Chronic respiratory failure, unspecified whether with hypoxia or hypercapnia; R30.0 Dysuria; G62.9 Polyneuropathy, unspecified; E66.9 Obesity, unspecified; I70.0 Atherosclerosis of aorta; K21.9 Gastro-esophageal reflux disease without esophagitis; J44.9 Chronic obstructive pulmonary disease, unspecified; I25.10 Atherosclerotic heart disease of native coronary artery without angina pectoris; F41.9 Anxiety disorder, unspecified; D64.9 Anemia, unspecified; I48.0 Paroxysmal atrial fibrillation; I12.9 Hypertensive chronic kidney disease with stage 1 through stage 4 chronic kidney disease, or unspecified chronic kidney disease; N18.9 Chronic kidney disease, unspecified; E78.5 Hyperlipidemia, unspecified; D73.3 Abscess of spleen; Z99.81 Dependence on supplemental oxygen; Z91.81 History of falling; Z79.01 Long term (current) use of anticoagulants; Z79.899 Other long term (current) drug therapy; Z68.26 Body mass index [BMI] 26.0-26.9, adult
CPT/HCPCS: 36415; 74176; 80048; 80053; 81001; 82962; 83605; 84484; 85025; 87040; 87081; 94640; 96361; 96374; 96375; 97110; 97116; 97163; 97530; G0378; J1815; J2248; J2405; J2543